=== PATIENT | female | born 1990 | race Caucasian/White ===

== ENCOUNTER 2024-06-02 09:01 | Inpatient (IN) ==
[2024-06-02] MEDS ORDERED: CALCIUM CARBONATE 500 MG CHEWABLE TAB PO PRN ×2 (09:43→18:41)
[2024-06-02] MEDS ORDERED: ACETAMINOPHEN 325 MG TAB PO PRN (09:43)
--- NOTE | 2024-06-02 10:13 | History & Physical Report ---
Date of Service June 02, 2024 Assessment & Plan (1) Uterine contractions at greater than 20 weeks of gestation: Plan: patient is a 33-year-old at 13 weeks and 1 day gestation who presented today with small amount of leaking since May 31 morning on 3 different episodes, nothing in between.And uterine contractions since this morning 2:30 AM, Vital signs stable afebrile, heart rate reassuring, Cervix is unfavorable, Initial exam with AmniSure revealed blood type and positive test, speculum exam with no pooling, nitrazine negative, no ferning on the slides, Normal NELSON, Unequivocal test as above, Plan to monitor, P.o. hydration, ambulate, and then rest in bed in Trendelenburg position and repeat speculum exam, All questions were answered. (2) Vaginal discharge during in third trimester: History of Present Illness Primary Care Provider: Glen Swenson Patient is a 33-year-old G1, P0 at 38 weeks and 1 day gestation who felt a sma ll amount of leakage of fluid on WednesdayMay 31 and morning. Nothing in between those episodes. This morning she woke up again the sensation of leakage around 2:30 AM when her contractions started. She has been feeling them every 5 minutes as above them are painful and some of them are not. Patient denies Trickling, gush of fluids. She reports good movements. the has been uncomplicated except GDM 1, diet controlled, history of asthma, GBS negative. Allergies Allergy/AdvReac Type Severity Reaction Status Date / Time No Known Allergies Allergy Unverified 06/02/24 09:45 Home Medications Medication Instructions Recorded Confirmed Type vits no.124-ferrous fum 1 tab 06/02/24 History 27 mg iron-folic acid 800 mcg tablet ( Vitamin) Patient History Medical History (Updated 06/02/24 @ 10:11 by Jess Rae MD) GERD (gastroesophageal reflux disease) Gestational diabetes Anxiety Asthma Surgical History (Updated 06/02/24 @ 09:45 by Letty Jesus RN) History of tonsillectomy Review of Systems as per Subjective / HPI Physical Exam Constitutional: WD/WN, vitals as above Genitourinary: normal external appearance Speculum/Bimanual Exam: normal appearance of the vagina ( no pooling) and + abnormal cervical discharge ( mucousy thick discharge) OB Exam Abdomen: + vertex Manual OB Exam: + cervical dilation fingertip, + cervical effacement 20% and + station high bedside ultrasound revealed vertex, single IUP, NELSON is 12 cm, placenta anterior, On initial exam AmniSure was done Q-tip was bloody, it turned positive, Speculum exam was done, no pooling, nitrazine negative, no ferning on the slide. Results & Data Vital Signs (Past 12 Hours) Vital Signs Pulse BP 06/02/24 09:39 90 118/71
[2024-06-02] MEDS: LACTATED RINGER'S 1,000 ML IV ONE (13:17)
--- NOTE | 2024-06-02 13:28 | Obstetrical Progress Note ---
Date of Service June 02, 2024 Subjective Patient is reevaluated. She walks in the hallways for for over an hour and then came back to bed and has been laying flat for over an another hour. She has not felt any leakage. She is still having contractions and they are less often but more painful. she rates the pain 8 out of 10 but declines pain medications for now. Her pad has been dry. Speculum exam is repeated, abundant mucus and upper vagina covering cervix, she coughed no pooling or leaking, it was collected, nitrazine is negative, no ferning on the slide. Her cervix is the same tight 1 cm, 30% effaced, -3, bulging bag felt. heart rate has been category 1, Urie showed contractions every 5 test 8 minutes, Discussed the findings most likely prolonged latent phase of labor offered her IV hydration and pain medication to rest and sleep and then reevaluate in 2 hours, Patient agrees with the plan, All questions were answered. Results & Data Vital Signs (Past 12 Hours) Vital Signs Temp Pulse Resp BP 06/02/24 11:12 86 06/02/24 11:12 114/60 06/02/24 09:48 36.7 C 20 06/02/24 09:39 90 118/71
[2024-06-02] MEDS: BUTORPHANOL TARTRATE 1 MG/ML VIAL IV ONE (13:50)
[2024-06-02] MEDS: LACTATED RINGER'S 1,000 ML IV SCH (14:19)
--- OUTSIDE RECORDS SUMMARY | 2024-06-02 16:58 | External Medical Summary | Summary of Care ---
Author Name Unknown Organization [facility] Address [address] [place] [address] Phone [phone] Care Team Providers Care Boom Boss Name Role Phone Glen Swenson MD Primary Care Provider Reason for Visit * Reason Comments Return Visit Encounter Details Date Type Department Care Team (Late st Contact Info) Description 05/29/2024 8:00 AM EDT Office Visit Gynecology/Obstetric s [facility] [address] [place] [phone] Shakila Thurston CRNP [address] [place] [phone] Supervision of high risk in third trimester*; Anxiety during ; Maternal asthma complicating ; Diet controlled gestational diabetes mellitus (GDM) in third trimester Allergies No known active allergiesdocumented as of this encounter (statuses as of 05/29/2024) Medications Complete Oral Capsule Therapy Pack Take by mouth. Activ e Breast PumpIndications: Breast feeding status of mother RAJWINDER 06/15/24, double electric pump, Z39.1 1 Each 4 Active Additional Information Patient not taking.Reported on 04/04/2024 OneTouch Delica Lancets 30GIndications:G estational diabetes mellitus (GDM) in third trimester, gestational diabetes method of control unspecified Check blood sugar 4 times a day 100 Each 6 5 Active OneTouch Verio w/Device KitIndications:G estational diabetes mellitus (GDM) in third trimester, gestational diabetes method of control unspecified Use as directed. Check blood sugar 4 times a day 1 Kit Active [employer] In Vitro Strip (Glucose Blood)Indication s:Gestational diabetes mellitus (GDM) in third trimester, gestational diabetes method of control unspecified Check blood sugar 4 times a day 100 Strip 6 Active documented as of this encounter (statuses as of 05/29/2024) Active Problems Problem Noted Date Diagnosed Date Supervision of high risk in third trim gary 04/04/2024 Diet controlled gestational diabetes mellitus (GDM) in third trimester 03/24/2024 Overview (05/24/2024): Diagnosed at 29 weeks Nutrition consult completed 03/31/2024 Lab Results Component Value Date/Time 50-G GESTATIONAL GLUCOSE, 1 HOUR - [facility] 180 (H) 03/21/2024 08:21 AM 100-G GESTATIONAL GLUCOSE, 1 HOUR - [facility] 157 03/23/2024 08:55 AM 100-G GESTATIONAL GLUCOSE, 2 HOUR - [facility] 184 (H) 03/23/2024 09:48 AM 100-G GESTATIONAL GLUCOSE, 3 HOUR - [facility] 156 (H) 03/23/2024 10:44 AM 100-G GESTATIONAL GLUCOSE, FASTING - [facility] 89 03/23/2024 07:41 AM 04/04/24: MFM [facility] consult complete. Referred to Current Health. Instructions provided to report blood sugars each week for MFM review; Reviewed diet & exercise recommendations, bedtime snack and fasting overnight for no longer than 8-10 hours. 04/12/[id number]-olpcih 04/18/24: RPM reviewed; overall stable; diet controlled 04/26/24: RPM reviewed; overall stable, diet controlled 05/03/[id number]-wrjzyd 05/10/[id number]-JDI-utfxof. 05/17/20240419-HYF-ulomlzt stable (< 50% elevated) 05/24/[id number]-UYC-oyzbxbi stable (2 elevated post prandial lunch values) Assessment & Plan (04/14/2024 8:31 AM EST): I reviewed the ultrasound with her. The anatomy that was visualized appears unremarkable and the biometry is appropriate the gestational age. The amniotic fluid volume is normal at 13 cm. The overall estimated weight is consistent with the 60th percentile for the gestational age and the fetus is in the vertex presentation. I reviewed her low risk noninvasive screen in light of the normal ultrasound findings. She states that her blood sugars are well controlled by diet alone. We did review the plan of care if she were to be placed on medication. She understands the need for nonstress testing at 32 weeks of gestation and ultrasound evaluations for growth every 4 weeks. As her blood sugars are controlled by diet alone, there currently is no indication for return. Assessment & Plan (04/04/2024 1:58 PM EST): CONSIDERATIONS: Reviewed etiology and risks associated with gestational diabetes mellitus (GDM), including risks to , fetus, and maternal progression to Type 2 DM. Instructed on proper use of glucometer; supplies ordered, if indicated. Advised that life-long screening for diabetes is recommended every 1-3 years. RECOMMENDATIONS: Recommend monitoring blood sugars with daily fasting blood sugar (maintained at less than 95) and 1 hour postprandial measurements (maintained at less than 140). Medications should be adjusted to maintain these target values. Report levels to MFM (Maternal- Medicine) weekly. Recommend nutrition consult with RDN (Registered Dietitian Nursing Admin). Lifestyle changes are also indicated including optimizing gestational weight gain and physical activity of 30 minutes per day, if not otherwise contraindicated in . Insulin is preferred if medications are indicated to optimize euglycemia. Metformin (preferred over glyburide) may also be used in some circumstances. Reviewed the risks and benefits of each. Recommend ultrasound, surveillance and delivery as follows: A1GDM, delivery should be accomplished by 41w0d. A2GDM, recommend growth assessment with MFM every 4 weeks, initiate surveillance with twice weekly NSTs at 32 weeks and continue until delivery at 39 weeks. Recommend intrapartum monitoring every 1-2 hours (A2GDM) or every 4 hours (A1GDM) and treat with insulin if indicated. Recommend 2-hour glucose tolerance testing with 75-gram glucose load during admission (or 6-8 weeks if not completed). Anxiety during 01/21/2024 Maternal asthma complicating Estimated Date of Delivery Comme nts Yes 06/15/2024 Based on Ultraso und documented as of this encounter (statuses as of 05/29/2024) Resolved Problems Problem Noted Date Diagnosed Date Resolved Date with 29 completed weeks gestation 04/04/2024 04/07/2024 Depressive disorder 03/09/2016 07/22/19 24 documented as of this encounter (statuses as of 05/29/2024) Immunizations Name Administration Dates Next Due COVID-19 mRNA, LNP-s, No Pre serve, 2-Dose Series (Pfizer) 06/24/2020,06/03/2020 Covid-19, Mrna, Lnp-s, Pf, B ivalent, 10 Mcg, IM, 5-11 yrs (Pfizer) 12/29/2022,2021 Covid-19, Mrna, Lnp-s, Pf, B ivalent, 30 Mcg, IM, 12 yrs and above (Pfizer) 03/08/2021 HEPATITIS B VACCINE, RECOMB, 20 MCG/ML, ADULT (HEPLISAV-B) 07/22/2023 HPV Vaccine, 9-Valent 03/30/2019,06/02/2018 Seasonal Influenza, QUAD, wi th Preserv, 6 mons & Above, 0.5 mL, IM 03/08/2021,11/30/2016 Seasonal Influenza, Trivalent, (IIV3), PF, (Fluz one) 12/20/2023 TDAP (age 10 and older)(Boostrix) 05/28/2022,03/2007 TDAP, Age 7 and older, IM (Adacel) 03/21/2024 documented as of this encounter Social History Tobacco Use Types Packs/Day Years Used Date Smoking Tobacco: Never Passive Smoke Exposure: Never Smokeless Tobacco: Never Alcohol Use Standard Drinks/Week Comments Not Currently 1 (1 standard drink = 0.6 oz pur e alcohol) PHQ-2 Answer Date Recorded PHQ Adult Total Score 4 12/27/2023 Hunger Vital Sign Answer Date Recorded Within the past 12 months, y ou worried that your food would run out before you got the money to buy more. Never true 07/22/19 24 Within the past 12 months, t he food you bought just didn't last and you didn't have money to get more. Never true 07/22/2023 [place] Depression Scale Answer Date Recorded [place] Depression Scale Total 8 05/08/2024 The thought of harming myself has occurred to me . Never 05/08/2024 Childcare Answer Date Recorded Do you feel overwhelmed with taking care of a child, family member or friend? No 07/22/2023 Does your family need help f inding childcare? (Household - for ages 0-17 years) Not on file 07/22/2023 Clothing Answer Date Recorded Have you been unable to get clothing when it was really needed? No 07/22/2023 Is your family able to get c lothes or diapers when needed? (Household - for ages 0-17 years) Not on file 07/22/2023 Personal Safety Answer Date Recorded Do you feel unsafe or have concerns for your saf ety? No 07/22/2023 Do you have concerns for you r family's safety? (Household - for ages 0-17 years) Not on file 07/22/2023 Utilities Answer Date Recorded Do you have trouble paying y our heating, water, or electric bill? No 07/22/2023 Is your family able to pay t he heat, water, or electric bill? (Household - for ages 0-17 years) Not on file 07/22/2023 Does your family have access to good internet? (Household - for ages 0-17 years) Not on file 07/22/2023 Employment Status Answer Date Recorded Are you unemployed or without regular income? No 07/22/2023 Does the household have a re gular source of income? (Household - for ages 0-17 years) Not on file 07/22/2023 Social Connections Answer Date Recorded How often do you feel lonely or isolated from th ose around you? Never 07/22/2023 Financial Resource Strain Answer Date R ecorded Do you have any trouble payi ng for your medications, or do you think you might in the future? No 07/22/2023 Does your family have troubl e paying for medicine? (Household - for ages 0-17 years) Not on file 07/22/2023 Transportation Needs Answer Date Record ed READ ONLY Do you have troubl e getting a ride to medical visits or work? Never True 07/22/2023 Does your family have a hard time getting a ride to doctors visits? (Household - for ages 0-17 years) Not on file 07/22/2023 Has lack of transportation k ept you from medical appointments, meetings, work, or from getting things needed for daily living? Check all that apply. (Adult - for ages 18 years and over) Not on file 07/22/2023 Do you (or your family) have trouble finding or paying for a ride (transportation)? (Household - for ages 0-17 years) Not on file 07/22/2023 Housing Stability Answer Date Recorded Do you currently live in a s helter or have no steady place to sleep at night? No 07/22/2023 READ ONLY Do you think you a re at risk of becoming homeless? No 07/22/2023 Does your family worry about paying for your home or becoming homeless? (Household - for ages 0-17 years) Not on file 0 07/22/2023 Are you homeless or worried that you might be in the future? (Adult - for ages 18 years and over) Not on file Are you (or your family) fernanda eless or worried that you might be in the future? (Household - for ages 0-17 years) Not on file Food Insecurity Answer Date Recorded Do you need food for this week? No 07/22/2023 Are you able to get enough f ood for your family? (Household - for ages 0-17 years) Not on file 07/22/2023 Does your family need food t his week? (Household - for ages 0-17 years) Not on file 07/22/2023 Do you always have enough fo od for your family? (Household - for ages 0-17 years) Not on file 07/22/2023 Food Insecurity Answer Date Recorded Within the past 12 months, y ou worried that your food would run out before you got the money to buy more. Never true 07/22/19 24 Within the past 12 months, t he food you bought just didn't last and you didn't have money to get more. Never true 07/22/2023 Do you need food for this week? No 07/22/2023 Estimated Date of Delivery Comme nts Yes 06/15/2024 Based on Ultraso und Sex and Gender Information Value Date Recorded Sex Assigned at Female 07/22/2023 7:19 AM EDT Legal Sex Female 10:21 AM EDT Gender Identity Female 07/22/2023 7:19 AM EDT Sexual Orientation Straight 07/22/2023 7: 19 AM EDT documented as of this encounter Last Filed Vital Signs Vital Sign Reading Time Taken Comments Blood Pressure 118/70 05/29/2024 8:09 AM EDT Pulse - - Temperature - - Respiratory Rate - - Oxygen Saturation - - Inhaled Oxygen Concentration - - Weight 63 kg (139 lb) 05/29/2024 8:09 AM EDT Height 155.5 cm (5' 1.22") 05/29/2024 8:09 AM ED T Body Mass Index 26.08 05/29/2024 8:09 AM EDT documented in this encounter Progress Notes * Shakila Thurston CRNP - 05/29/2024 8:10 AM EDT 37w4d No complaints. Reports blood sugars are mostly good- struggles with the reading after her once a week meal at her in-laws house. She reports the majority of the rest of the blood sugar readings are within range. Baby is active. Denies contractions or bleeding. Politely declined scheduling IOL. LIANNE Rivera documented in this encounter Nursing Notes * Yany Duncan LPN - 05/29/2024 8:02 AM EDT 37w4d Declines IOL documented in this encounter Plan of Treatment Upcoming Encounters Date Type Department Care Team (Late st Contact Info) Description 06/05/2024 8:30 AM EDT Office Visit Gynecology/Obstetrics [facility] [address] [place] [id number] Maggie Monique CRNP [address] [place] [address] 06/12/2024 9:30 AM EDT Office Visit Gynecology/Obstetrics [facility] [address] [place] [address] Melina Patel PA-C [address] [place] [id number] Health Maintenance Due Date Last Done Comments Pneumococcal Vaccine: Pediatrics (0 to 5 Years) and At-Risk Patients (6 to 18 Years and 19+ Years) (1 of 2 - PCV) 2008 Lipid Panel 2009 HPV (Gardasil) Vaccine (3 - 3-dose SCDM series) 06/22/2019 03/30/2019, 06/02/2018 Hepatitis B Vaccine (2 of 2 - CpG 2-dose series) 08/19/2023 07/22/2023 *SPIROMETRY ONCE FOR ASTHMA-ADULT 01/24/2024 Depression Screening 12/26/2024 12/27/2023, 12/13/2023, 11/26/2023, Additional history exists Pap Smear 11/17/2026 11/18/2023 Cervical Cancer Screening 11/17/2028 HPV/Co-Test 11/17/2028 11/18/2023 DTap/Tdap Vaccines (4 - Td or Tdap) 03/21/2034 03/21/2024, 05/28/2022, 03/01/2007 COVID-19 Vaccine Discontinued 12/29/2022, , 03/08/2021, Additional history exists Influenza Vaccine (FLU shot) Completed 12/20/2023, 03/08/2021, 11/30/2016 MENINGOCOCCAL (MENACTRA/MENVEO) Aged Out No longer eligible based on patient's age to complete this topic Meningitis B Vaccine (Bexsero/Trumemba) Aged Out No longer eligible based on patient's age to complete this topic documented as of this encounter Goals Goal Patient Goal Type Associated Problems Recent Progress Patient-Stated? Author Reminders Care Plan OB Reminders No Mychart, Provider documented as of this encounter Medical Devices Not on filedocumented as of this encounter Visit Diagnoses Diagnosis Diet controlled gestational diabetes mellitus (GDM) in third trimester- Primary Supervision of high risk in third trimester Unspecified high-risk with 29 completed weeks gestation Diet controlled gestational diabetes mellitus (GDM) in third trimester- Primary Supervision of high risk in third trimester- Primary Unspecified high-risk Anxiety during Maternal asthma complicating Other current maternal conditions classifiable elsewhere, complicating , childbirth, or the puerperium, unspecified as to episode of care Diet controlled gestational diabetes mellitus (GDM) in third trimester documented in this encounter Additional Health Concerns Active Problems Noted Date Diagnosed Date OB Reminders 03/12/2024 documented as of this encounter Care Teams Boom Boss Relationship Specialty Start Date End Date Glen Swenson MD [address] [place] [phone] PCP - General Family Medicine 04/11/24 documented as of this encounter
--- OUTSIDE RECORDS SUMMARY | 2024-06-02 16:58 | External Medical Summary | Summary of Care ---
Author Name Unknown Organization [facility] Address [address] [place] [address] Phone [phone] Care Team Providers Care Team Truck Driver Name Role Phone Glen Swenson MD Primary Care Provider Reason for Visit * Reason Comments Return Visit Encounter Details Date Type Department Care Team (Late st Contact Info) Description 05/22/2024 8:30 AM EDT Office Visit Gynecology/Obstetric s [facility] [address] [place] [phone] Maggie Monique CRNP [address] [place] [phone] Supervision of high risk in third trimester*; Anxiety during ; Maternal asthma complicating ; Diet controlled gestational diabetes mellitus (GDM) in third trimester Allergies No known active allergiesdocumented as of this encounter (statuses as of 05/22/2024) Medications Complete Oral Capsule Therapy Pack Take [...] 4 times a day 1 Kit Active [employer] In Vitro Strip (Glucose Blood)Indication s:Gestational diabetes mellitus (GDM) in third trimester, gestational diabetes method of control unspecified Check blood sugar 4 times a day 100 Strip 6 Active documented as of this encounter (statuses as of 05/22/2024) Active Problems Problem Noted Date Diagnosed Date Supervision of high risk in third trim gary 04/04/2024 Diet controlled gestational diabetes mellitus (GDM) in third trimester 03/24/2024 Overview (05/17/2024): Diagnosed at 29 weeks Nutrition consult completed [...] overnight for no longer than 8-10 hours. 04/12/[id number]-[id number]-ryuooh 04/18/24: RPM reviewed; overall stable; diet controlled 04/26/24: RPM reviewed; overall stable, diet controlled 05/03/[id number]-DOJ-ezgoka 05/10/[id number]-ELU-nyqgpa. 05/17/20243724-VLY-duanszf stable (< 50% elevated) Assessment & Plan (04/14/2024 8:31 AM EST): [...] Recommend nutrition consult with RDN (Registered Dietitian Personal Counselor). Lifestyle changes are also indicated including optimizing [...] as of this encounter (statuses as of 05/22/2024) Resolved Problems Problem Noted Date Diagnosed Date Resolved Date with 29 completed weeks gestation 04/04/2024 04/07/2024 Depressive disorder 03/09/2016 07/22/19 24 documented as of this encounter (statuses as of 05/22/2024) Immunizations Name Administration Dates Next Due COVID-19 [...] money to get more. Never true 07/22/2023 [place] Depression Scale Answer Date Recorded [place] Depression Scale Total 8 05/08/2024 The thought [...] 07/22/2023 Does the household have a re lar source of income? (Household - for ages [...] Sign Reading Time Taken Comments Blood Pressure 120/68 05/22/2024 8:26 AM EDT Pulse - - Temperature - - Respiratory Rate - - Oxygen Saturation - - Inhaled Oxygen Concentration - - Weight 62.6 kg (138 lb) 05/22/2024 8:26 AM EDT Height 155.5 cm (5' 1.22") 05/22/2024 8:26 AM ED T Body Mass Index 25.89 05/22/2024 8:26 AM EDT documented in this encounter Progress Notes * Maggie Monique CRNP - 05/22/2024 8:27 AM EDT 36w4d GDMA 1, followed by [facility]T. Good movement. No leaking/bleeding. Some ctx, nothing regular. Discussed calling with concerns for LOF, decreased FM, or labor. Pt wishes to self-collect GBS, instructions provided. Return in 1 week. LIANNE Ibrahim * Yany Duncan LPN - 05/22/2024 8:26 AM EDT 36w4d Would like to do GBS herself documented in this encounter Plan of Treatment Upcoming Encounters Date Type Department Care Team (Late st Contact Info) Description 05/29/2024 8:00 AM EDT Office Visit Gynecology/Obstetrics [facility] [address] [address] Shakila Thurston CRNP [address] [address] 06/05/2024 8:30 AM EDT Office Visit Gynecology/Obstetrics [facility] [address] [address] Maggie Monique CRNP [address] [place] [phone] 06/12/2024 9:30 AM EDT Office Visit Gynecology/Obstetrics [facility] [address] [place] [address] Melina Patel PA-C [address] [place] [address] Pending Results Name Type Priority Associated Diagnoses Date /Time GROUP B STREP CULTURE/PCR Lab Routine Supervision of high risk in third trimester 05/22/2024 8:52 AM EDT Scheduled Orders Name Type Priority Associated Diagnoses Orde r Schedule GROUP B STREP CULTURE/PCR Lab Routine Supervision of high risk in third trimester Expected: 05/22/2024, Expires: 05/22/2025 Health Maintenance Due Date Last Done Comments [...] documented as of this encounter Care Teams Team Truck Driver Relationship Specialty Start Date End Date Glen Swenson MD [address] [facility] [place] [phone] PCP - General Family Medicine 04/11/24 documented as of this encounter
--- OUTSIDE RECORDS SUMMARY | 2024-06-02 16:58 | External Medical Summary | Summary of Care ---
Author Name Unknown Organization [facility] Address [address] [place] [address] Phone [phone] Care Team Providers Care Electronic Data Interchange Specialist Name Role Phone Glen Swenson MD Primary Care Provider Encounter Details Date Type Department Care Team (Late st Contact Info) Description 06/02/2024 Telephone Gynecology/Obstetrics [facility] [address] [place] [address] Jess Cabrera MD [address] [place] [address] Allergies No known active allergiesdocumented as of this encounter (statuses as of 06/02/2024) Medications Complete Oral Capsule Therapy Pack Take [...] sugar 4 times a day 1 Kit 5 Active OneTouch Verio In Vitro Strip (Glucose Blood)Indication s:Gestational diabetes mellitus (GDM) in third trimester, gestational diabetes method of control unspecified Check blood sugar 4 times a day 100 Strip 6 Active documented as of this encounter (statuses as of 06/02/2024) Active Problems Problem Noted Date Diagnosed Date Supervision of high risk in third trim gary 04/04/2024 Diet controlled gestational diabetes mellitus (GDM) in third trimester 03/24/2024 Overview (05/31/2024): Diagnosed at 29 weeks Nutrition consult completed [...] overnight for no longer than 8-10 hours. 04/12/[id number]-SYU-uustzl 04/18/24: RPM reviewed; overall stable; diet controlled 04/26/24: RPM reviewed; overall stable, diet controlled 05/03/20240961-NRP-cahvvk 05/10/20242867-WUZ-ydrbfu. 05/17/[id number]-SXZ-tlxcaqq stable (< 50% elevated) 05/24/20242387-GFS-wpzjzzc stable (2 elevated post prandial lunch values) 05/31/20247528-DFM-oxiifj (1 elevated post prandial dinner) Assessment & Plan (04/14/2024 8:31 AM EST): [...] Recommend nutrition consult with RDN (Registered Dietitian Ride Attendant). Lifestyle changes are also indicated including optimizing [...] as of this encounter (statuses as of 06/02/2024) Resolved Problems Problem Noted Date Diagnosed Date Resolved Date with 29 completed weeks gestation 04/04/2024 04/07/2024 Depressive disorder 03/09/2016 07/22/19 24 documented as of this encounter (statuses as of 06/02/2024) Immunizations Name Administration Dates Next Due COVID-19 mRNA, LNP-s, No Pre serve, 2-Dose Series ([employer]) 06/24/2020,06/03/2020 Covid-19, Mrna, Lnp-s, Pf, B ivalent, [...] money to get more. Never true 07/22/2023 [place] Depression Scale Answer Date Recorded [place] Depression Scale Total 8 05/08/2024 The thought [...] AM EDT documented as of this encounter Miscellaneous Notes * Telephone Encounter - Yany Dunacn LPN - 06/02/2024 8:19 AM EDT I spoke with Dr. De La Cruz and she would like for pt to go to L&D. Pt aware and L&D aware * Telephone Encounter - Yany Duncan LPN - 06/02/2024 8:12 AM EDT Pt called in think she may have been LOF for the past 2 days not having leaking all the time just when she sitsup from laying down she notices her underwear wet. Pt denies any vb. Baby is moving well. Pt is saying she is having contractions that are 5 mins aprt lasting 45secs-1min. I let pt know I need to reach out to dr de la cruz and I will call her right back. Pt verbalized understanding documented in this encounter Plan of Treatment Upcoming Encounters Date Type Department Care Team (Late st Contact Info) Description 06/05/2024 8:30 AM EDT Office Visit Gynecology/Obstetrics [facility] [address] [address] Maggie Monique CRNP [address] [place] [address] 06/12/2024 9:30 AM EDT Office Visit Gynecology/Obstetrics [facility] [address] [address] Melina Patel PA-C [address] [place] [address] Health Maintenance Due Date Last Done Comments [...] Author Reminders Care Plan OB Reminders No [place], Provider documented as of this encounter Medical Devices Not on filedocumented as of this encounter Additional Health Concerns Active Problems Noted Date Diagnosed Date OB Reminders 03/12/2024 documented as of this encounter Care Teams Electronic Data Interchange Specialist Relationship Specialty Start Date End Date Glen Swenson MD [address] [address] PCP - General Family Medicine 04/11/24 documented as of this encounter
--- OUTSIDE RECORDS SUMMARY | 2024-06-02 16:58 | External Medical Summary ---
Author Name Unknown Address Unknown Organization K01:[facility] [place] [facility] [address] [place] [address] Laboratory Report Ordering Provider Test Date Status GAIL DE LA GARZA 05/22/2024 08:52:51 Final Observation Date Value Abnormality Reference (Units ) Status Streptococcus agalactiae DNA [Presence] in Specimen by LUIS with probe detection 05/22/2024 08:52:51 Negative Negative Final No Group B Streptococcus det ected by culture-enhanced PCR (amplified probe). GBS GBSCT - [facility] 05/22/2024 08:52:51 0.0 Final GBS SPCCT - [facility] 05/22/2024 08:52:51 30.4 Final Performing Location [facility] [place] [address] [place] [address]
--- OUTSIDE RECORDS SUMMARY | 2024-06-02 16:58 | External Medical Summary | Summary of Care ---
Author Name Unknown Organization [facility] Address [address] [place] [address] Phone [phone] Care Team Providers Care Registered Dietician Name Role Phone Glen Swensno MD Primary Care Provider Reason for Visit * Reason Onset Date Comments Appointment 05/24/2024 Encounter Details Date Type Department Care Team (Late st Contact Info) Description 05/24/2024 Telephone Psychology [facility] [address] [place] [address] Lizbeth Dean, [facility] [address] [place] [address] Appointment Allergies No known active allergiesdocumented as of this encounter (statuses as of 05/24/2024) Medications Complete Oral Capsule Therapy Pack Take [...] as of this encounter (statuses as of 05/24/2024) Active Problems Problem Noted Date Diagnosed Date [...] overnight for no longer than 8-10 hours. 04/12/20240666-JXL-pbgfcj 04/18/24: RPM reviewed; overall stable; diet controlled 04/26/24: RPM reviewed; overall stable, diet controlled 05/03/20245454-ZOY-nttcms 05/10/[id number]-ATI-zsozzo. 05/17/20243369-VBD-wfquueu stable (< 50% elevated) 05/24/20247362-VOO-glkossq stable (2 elevated post prandial lunch values) [...] Recommend nutrition consult with RDN (Registered Dietitian Internal Audit Manager). Lifestyle changes are also indicated including optimizing [...] completed). Anxiety during 01/21/2024 Maternal asthma complicating 4 Estimated Date of Delivery Comme nts Yes 06/15/2024 Based on Ultraso und documented as of this encounter (statuses as of 05/24/2024) Resolved Problems Problem Noted Date Diagnosed Date Resolved Date with 29 completed weeks gestation 04/04/2024 04/07/2024 Depressive disorder 03/09/2016 07/22/19 24 documented as of this encounter (statuses as of 05/24/2024) Immunizations Name Administration Dates Next Due COVID-19 mRNA, LNP-s, No Pre serve, 2-Dose Series ([employer]) 06/24/2020,06/03/2020 Covid-19, Mrna, Lnp-s, Pf, B ivalent, [...] money to get more. Never true 07/22/2023 [place] Depression Scale Answer Date Recorded [place] Depression Scale Total 8 05/08/2024 The thought [...] No 07/22/2023 Does the household have a [facility] income? (Household - for ages [...] encounter Miscellaneous Notes * Telephone Encounter - Светлана Boyce OSA - 05/24/2024 1:40 PM EDT Spoke with patient about transitioning ot new provider and patient declined wants something fpc. documented in this encounter Plan of Treatment Upcoming Encounters Date Type Department Care Team (Late st Contact Info) Description 05/29/2024 8:00 AM EDT Office Visit Gynecology/Obstetrics [facility] [address] [address] Shakila Thurston CRNP [address] [place] [address] 06/05/2024 8:30 AM EDT Office Visit Gynecology/Obstetrics [facility] [address] [place] [address] Maggie Monique CRNP [address] [place] [address] 06/12/2024 9:30 AM EDT Office Visit Gynecology/Obstetrics [facility] [address] [address] Melina Patel PA-C [address] [place] [address] Health Maintenance Due Date Last Done Comments [...] documented as of this encounter Care Teams Registered Dietician Relationship Specialty Start Date End Date Glen Swenson MD [address] [facility] [address] [place] [address] PCP - General Family Medicine 04/11/24 documented as of this encounter
--- OUTSIDE RECORDS SUMMARY | 2024-06-02 16:58 | External Medical Summary | Summary of Care ---
Author Name Unknown Organization [facility] Address [address] [place] [address] Phone [phone] Care Team Providers Care Hunter Name Role Phone Glen Swenson MD Primary Care Provider Reason for Visit * Reason Comments Return Visit Encounter Details Date Type Department Care Team (Late st Contact Info) Description 05/22/2024 8:30 AM EDT Office Visit Gynecology/Obstetric s [facility] [address] [place] [address] Maggie Monique CRNP [address] [place] [address] Supervision of high risk in third trimester*; [...] 4 times a day 1 Kit Active [employer] In Vitro Strip (Glucose Blood)Indication s:Gestational diabetes [...] overnight for no longer than 8-10 hours. 04/12/20240223-TBN-fmlfsy 04/18/24: RPM reviewed; overall stable; diet controlled 04/26/24: RPM reviewed; overall stable, diet controlled 05/03/20243240-YTS-cflaje 05/10/20243830-ROJ-dfvomr. 05/17/20246885-IWF-dbfvzpk stable (< 50% elevated) Assessment & Plan [...] Recommend nutrition consult with RDN (Registered Dietitian Bar Hostess). Lifestyle changes are also indicated including optimizing [...] money to get more. Never true 07/22/2023 [place] Depression Scale Answer Date Recorded [place] Depression Scale Total 8 05/08/2024 The thought [...] Visit Gynecology/Obstetrics [facility] [address] [address] Shakila Thurston CRNP [address] [address] 06/05/2024 8:30 AM EDT Office Visit Gynecology/Obstetrics [facility] [address] [address] Maggie Monique CRNP [address] [place] [address] 06/12/2024 9:30 AM EDT Office Visit Gynecology/Obstetrics [facility] [address] [place] [address] Melina Patel PA-C [address] [place] [address] Pending Results Name Type Priority Associated Diagnoses [...] documented as of this encounter Care Teams Hunter Relationship Specialty Start Date End Date Glen Swenson MD [address] [facility] [place] [address] PCP - General Family Medicine 04/11/24 documented as of this encounter
--- OUTSIDE RECORDS SUMMARY | 2024-06-02 16:59 | External Medical Summary | Summary of Care ---
Author Name Unknown Organization [facility] Address [address] [place] [address] Phone [phone] Care Team Providers Care Medication Technician Name Role Phone Glen Swenson MD Primary Care Provider Reason for Referral * Precert (Within 10 days (routine)) - Pending Review Specialty Diagnoses / Procedures Referred By Dwayne jones Referred To Contact Sleep Disorders Diagnoses Loud snoring Sleep apnea, unspecified type Frequent nocturnal awakening Procedures TIMED SLEEP STUDY, UNATTEND, HR/O2 SAT/RESP Katrina Gold CRNP [address] [place] [address] Phone: tel: fax: Referral ID Status Reason Start Date Expiration Date V isits Requested Visits Authorized [id number] Pending Review 04/11/2024 999 999 Reason for Visit * Evaluate & Treat - Unlimited Visits (Within 10 days (routine)) - Pending Review Specialty Diagnoses / Procedures Referred By Dwayne jones Referred To Contact Sleep Medicine / Sleep Disorders Diagnoses Sleep apnea, unspecified type Snoring Restless sleeper Kayden, LIANNE Guzmán [address] [place] [address] Phone: tel: fax: Referral ID Status Reason Start Date Expiration Date Visits Requested Visits Authorized [id number] Pending Review Specialty Services Required 04/11/2024 2 2 Encounter Details Date Type Department Care Team (Late st Contact Info) Description 04/11/2024 11:00 AM EST Telemedicine Sleep Disorders [facility] [address] [place] [phone] Katrina Gold CRNP [address] [place] [address] Loud snoring*; Sleep apnea, unspecified type; Frequent nocturnal awakening Allergies No known active allergiesdocumented as of this encounter (statuses as of 04/11/2024) Medications Complete Oral Capsule Therapy Pack Take by mouth. Activ e Breast PumpIndications: Breast feeding status of mother RAJWINDER 06/15/24, double electric pump, Z39.1 1 Each 4 Active Additional Information Patient not taking.Reported on 04/04/2024 [employer] Delica Lancets 30GIndications:G estational diabetes mellitus (GDM) in third trimester, gestational diabetes method of control unspecified Check blood sugar 4 times a day 100 Each 6 5 Active InnoPh[employer]uch Verio w/Device KitIndications:G estational diabetes mellitus (GDM) in third trimester, gestational diabetes method of control unspecified Use as directed. Check blood sugar 4 times a day 1 Kit 5 Active [employer] In Vitro Strip (Glucose Blood)Indication s:Gestational diabetes mellitus (GDM) in third trimester, gestational diabetes method of control unspecified Check blood sugar 4 times a day 100 Strip 6 5 Active documented as of this encounter (statuses as of 04/11/2024) Active Problems Problem Noted Date Diagnosed Date Supervision of high risk in third trim gary 04/04/2024 Diet controlled gestational diabetes mellitus (GDM) in third trimester 03/24/2024 Overview (04/04/2024): Diagnosed at 29 weeks Nutrition consult completed [...] FASTING - [facility] 89 03/23/2024 07:41 AM She reports her home blood glucose as following: DATE Fasting 1 hr after Breakfast 1 hr after Lunch 1 hr after Dinner 03/30/24 x 131 105 102 03/31/24 83 98 132 x 04/01/24 88 113 106 112 04/02/24 88 110 121 106 04/03/24 90 128 140 130 04/04/24 91 x 04/04/24: MFM ADAPT consult complete. Referred to Current Health. Instructions provided to report blood sugars each week for MFM review; Reviewed diet & exercise recommendations, bedtime snack and fasting overnight for no longer than 8-10 hours. Assessment & Plan (04/04/2024 1:58 PM EST): [...] Recommend nutrition consult with RDN (Registered Dietitian Knocker Out). Lifestyle changes are also indicated including optimizing [...] as of this encounter (statuses as of 04/11/2024) Resolved Problems Problem Noted Date Diagnosed Date Resolved Date with 29 completed weeks gestation 04/04/2024 04/07/2024 Depressive disorder 03/09/2016 07/22/19 24 documented as of this encounter (statuses as of 04/11/2024) Immunizations Name Administration Dates Next Due COVID-19 [...] money to get more. Never true 07/22/2023 [place] Depression Scale Answer Date Recorded [place] Depression Scale Total 10 11/18/2023 The thought of harming myself has occurred to me . Never 11/18/2023 Childcare Answer Date Recorded Do you feel [...] AM EDT documented as of this encounter Progress Notes * Katrina Gold CRNP - 04/11/2024 11:00 AM EST Patient location: HOME. I was in a hospital or clinic location. After connecting through televideo,patient was verified with two unique identifiers. Patient (or authorized legal customer operations representative) was then informed that this was a Telemedicine visit and being conducted confidentially over secure lines. Methods to assure confidentiality were taken. Patient acknowledged consent and understanding of pr ivacy and security of the Telemedicine visit. The patient agreed to participate. [facility] SLEEP MEDICINE CONSULTATION Mrs. Malou Hernandez is a 33 year old female with history of NALINI, depression, asthma seen at the request of Maggie ABDALLA for evaluation of possible sleep disordered breathing. Currently 30 weeks with reports of snoring and frequent awakenings pre . Both worsened now. Getsa tightness in the throat as she's falling asleep that wakes along with the sense of snoring. No prior sleep testing. Review of sleep symptoms ("+" indicates reports, "-" indicates denies): (+) Loud snoring with related arousals - no benefit with Breathe Rite strips in regards to snoring,using nasal saline, head of bed has been elevated which has lessened snoring (+) Witnessed apneas (-) Nocturnal choking or gasping (+) Nocturnal gastroesophageal reflux (+) Dry mouth on waking (+) Morning headaches (+) Bruxism- guard worn (+) Non-restorative sleep- noted prior to , too (+) Daytime sleepiness or fatigue- noted prior to , too (-) Symptoms of restless legs syndrome (-) Abnormal sleep behaviors including dream enactment or sleep walking Bedroom environment: Lives with . Sleeps in bed shared with . Side sleeping. Utilizing adjustable head of bed with benefit. Routine prior to bed: reading in bed Electronics: my browse on her phone, listens to crime shows when going to sleep Climate: 65 degrees, comfortable Lighting: bedside lamp when reading only Noise: none once asleep Pets: dog, cat on her side of the bed- cat being on her legs can be disruptive Sleep Schedule: Work: Programing - daylight hours Hypnotics: rare OTC without benefit Work nights: In bed 8:30p, reading prior to bed Time to fall asleep 10:30p Nighttime awakenings/ Reason 10-20 times, uncomfortable, animals, snores Wake after sleep onset brief Awake Time/Alarm Perceived total sleep time Spontaneously, around 6a, out of bed checking blood sugar 7.5 hrs Naps denies Off days: In Bed May be a little later Awake Time/Alarm same Naps rare EPWORTH SLEEPINESS SCALE: How likely are you to doze off or fall asleep in the following situations, in contrast to feeling just tired?. This refers to your usual way of life in recent times. Even if you have not done some ofthese things recently, try to work out how they would have affected you. Using the following scale,kasaan the most appropriate number in the chart for each situation. 0 = would never doze 1 = slight chance of dozing 2 = moderate chance of dozing 3 = high chance of dozing · Sitting and reading - 2 · Watching TV - 0 · Sitting, inactive in a public place - 0 · As a passenger in a car for an hour without a break - 0 · Lying down to rest in the afternoon when circumstance permit - 1 · Sitting and talking to someone - 0 · Sitting quietly after a lunch without alcohol - 0 · In a car, while stopped for a few minutes in the traffic - 0 Total - 05/22 [facility]. Sleep. 1991;[id number]. Medical History: Patient Active Problem List Diagnosis Anxiety during Maternal asthma complicating Diet controlled gestational diabetes mellitus (GDM) in third trimester Supervision of high risk in third trimester Anxiety and depression Exercise induced asthma Surgical History: Past Surgical History: Procedure Laterality Date RI TONSILLECTOMY PRIMARY/SECONDARY AGE 12 OR MORE reconcilled from [facility] Current Medications: Current Outpatient Medications Medication Sig Dispense Refill OneTouch DelTwist and Shout Lancets 30G Check blood sugar 4 times a day 100 Each 6 OneTouch Verio In Vitro Strip (Glucose Blood) Check blood sugar 4 times a day 100 Strip 6 OneTouch Verio w/Device Kit Use as directed. Check blood sugar 4 times a day 1 Kit 0 Breast Pump RAJWINDER 06/15/24, double electric pump, Z39.1 (Patient not taking: Reported on 04/04/2024) 1 Each 0 Complete Oral Capsule Therapy Pack Take by mouth. No current facility-administered medications for this visit. Social History: Caffeine: 1 cup coffee/am, occasional mini soda Alcohol use: denies Nicotine use: denies Illicit drug use: denies Routine exercise: was weight lifting, walking 15-20 minutes after meals Family History: Denies family history of sleep related disorders. Father snores loudly. Physical Exam: Wt Readings from Last 1 Encounters: 04/07/24 60.8 kg (134 lb) BMI Readings from Last 1 Encounters: 04/07/24 25.14 kg/m² Neck: unknown Constitutional: Alert, oriented in no acute distress, accompanied by self Nose: Normal external appearance. Chest: Normal respiratory effort at rest Neuro: Fluent speech Psych: Appropriate mood and affect BP Readings from Last 3 Encounters: 04/07/24 110/62 03/21/24 104/62 02/17/24 102/64 Impression/Recommendations: 33 year old female currently 30 week gestation with NALINI, depression, asthma, gestational diabetes who presents with snoring and frequent awakenings that has worsened with . At risk for TED. - Discussed the pathophysiology, implications on short- and long-term health, diagnostic evaluation, and likely treatment options of TED - Schedule a home sleep apnea test to evaluate for TED. Discussed that if the HSAT does not show TED, an in-lab PSG is recommended. - Limit sleep disrupters. Consider changing location of where pets sleep. Optimize comfort as able. - Avoid driving or engaging in any activity that requires full alertness if feeling sleepy, drowsy or otherwise impaired. Results and recommendations will be provided through [facility] once sleep testing is reviewed. LIANNE Merritt Pulmonary & Sleep Medicine [facility] I spent a total of Greater than 55 mins (exact time 60 mins) on the date of service in preparation,delivery, and documentation of the care provided to Malou Hernandez excluding any time spent in the performance of separately billed services or time spent by another provider/QHP. documented in this encounter Plan of Treatment Upcoming Encounters Date Type Department Care Team (Late st Contact Info) Description 04/13/2024 3:30 PM EST Therapy Psychology [facility] [address] [place] [address] Lizbeth Dean LCSW [address] [place] [address] 04/14/2024 7:45 AM EST Office Visit Solar Manager OB Maternal Medicine [facility] Carmenza Ruiz [address] [place] [address] Dr [address] [facility] [place] [address] Jake Muñoz MD [address] [place] [address] 04/14/2024 7:45 AM EST Imaging Maternal Medicine [facility] Carmenza Ruiz [address] [place] [address] Dr [address] [place] [address] 04/24/2024 7:45 AM EST Office Visit Gynecology/Obstetrics [facility] [address] [place] [address] Kiya Dorsey PA-C [address] [place] [address] Scheduled Orders Name Type Priority Associated Diagnoses Orde r Schedule TIMED SLEEP STUDY, UNATTEND, HR/O2 SAT/RESP Procedures Routine Loud snoring Sleep apnea, unspecified type Frequent nocturnal awakening Ordered: 04/11/2024 Health Maintenance Due Date Last Done Comments Pneumococcal Vaccine: Pediatrics (0 to 5 Years) and At-Risk Patients (6 to 18 Years and 19+ Years) (1 of 2 - PCV) 2008 HPV (Gardasil) Vaccine (3 - 3-dose SCDM [...] Unspecified high-risk with 29 completed weeks gestation Loud snoring- Primary Sleep apnea, unspecified type Frequent nocturnal awakening Other sleep disturbances documented in this encounter Additional Health Concerns Active Problems Noted Date Diagnosed Date OB Reminders 03/12/2024 documented as of this encounter Care Teams Medication Technician Relationship Specialty Start Date End Date Glen Swenson MD [address] [facility] [place] [address] PCP - General Family Medicine 04/11/24 documented as of this encounter
--- OUTSIDE RECORDS SUMMARY | 2024-06-02 16:59 | External Medical Summary | Summary of Care ---
Author Name Unknown Organization [facility] Address [address] [place] [address] Phone [phone] Care Team Providers Care Turkey Boner Name Role Phone Glen Swenson MD Primary Care Provider Reason for Visit * Reason Comments Psychotherapy Encounter Details Date Type Department Care Team (Late st Contact Info) Description 04/13/2024 3:30 PM EST Therapy Psychology [facility] [address] [place] [address] Lizbeth Daen, [facility] [address] [place] [address] Adjustment disorder with mixed anxiety and depressed mood* Allergies No known active allergiesdocumented as of this encounter (statuses as of 04/14/2024) Medications Complete Oral Capsule Therapy Pack Take [...] 4 times a day 1 Kit Active [employer] In Vitro Strip (Glucose Blood)Indication s:Gestational diabetes mellitus (GDM) in third trimester, gestational diabetes method of control unspecified Check blood sugar 4 times a day 100 Strip 6 5 Active documented as of this encounter (statuses as of 04/14/2024) Active Problems Problem Noted Date Diagnosed Date Supervision of high risk in third trim gary 04/04/2024 Diet controlled gestational diabetes mellitus (GDM) in third trimester 03/24/2024 Overview (04/12/2024): Diagnosed at 29 weeks Nutrition consult completed [...] overnight for no longer than 8-10 hours. 04/12/20242681-[id number]-uwtllb Assessment & Plan (04/04/2024 1:58 PM EST): [...] Recommend nutrition consult with RDN (Registered Dietitian Heavy Duty Press Operator). Lifestyle changes are also indicated including optimizing [...] as of this encounter (statuses as of 04/14/2024) Resolved Problems Problem Noted Date Diagnosed Date Resolved Date with 29 completed weeks gestation 04/04/2024 04/07/2024 Depressive disorder 03/09/2016 07/22/19 24 documented as of this encounter (statuses as of 04/14/2024) Immunizations Name Administration Dates Next Due COVID-19 mRNA, LNP-s, No Pre serve, 2-Dose Series (Pfizer) 06/24/2020,06/03/2020 Covid-19, Mrna, Lnp-s, Pf, B ivalent, 10 Mcg, IM, 5-11 yrs (Pfizer) 12/29/2022,2021 Covid-19, Mrna, Lnp-s, Pf, B ivalent, 30 Mcg, IM, 12 yrs and above ([employer]) 03/08/2021 HEPATITIS B VACCINE, RECOMB, 20 MCG/ML, [...] money to get more. Never true 07/22/2023 [place] Depression Scale Answer Date Recorded [place] Depression Scale Total 10 11/18/2023 The thought [...] 18 years and over) Not on file 4 Are you (or your family) fernanda eless [...] as of this encounter Progress Notes * Lizbeth Dean LCSW - 04/13/2024 3:33 PM EST PRIMARY CARE BEHAVIORAL HEALTH FOLLOW-UP 04/13/2024 Length of visit: 50 minutes (3:40 pm - 4:35 pm) Type of Visit: individual Treatment session number: 5 AGENDA & ACTION PLAN: Check in-Malou shared update of her situation. -Today therapists utilized open ended, closed ended, clarifying questions and empathetic and activelistening to promote expression of thoughts and feelings as Malou shared update of her situation. She shared about her and provided update on her heatlh. She shared about her management of anxiety and worries having to do with identity, management of and . We took time to process in session. We also discussed ways Malou can care for herself, prepare for and discussed what she might need, what helps her cope and manage. Therapist also utilized CBT with use of re-framing and considering how she thinks about things. Therapist shared concepts of transitions and radical acceptance. Accepting what she cannot change and being aware of what she can do to manage. -We also reviewed treatment plan and we discussed update to treatment plan as Malou finding therapyhelpful and would like to continue. Optional: Interventions addressed in treatment thus far: Treatment/Intervention Visit 04/13/2024 1 2 3 4 5 6 Behavioral activation Behavior modification for poor health behaviors (e.g., smoking cessation) Breathing re-training mindfulness training Cognitive restructuring/diffusion x Exercise/physical activity Problem-solving Psychoeducation x Exposure and/or response prevention Supportive therapy x Sleep hygiene Stimulus control Time in bed restriction Conduct WHO (BHCM,ELLEN,MTM) MENTAL STATUS EXAMINATION: No changes to mental status since last visit. No change in suicide or homicide risk status since last visit. Level of suicide completion risk:Low Risk (wish to or ideation without method, intent, plan, orbehavior; modifiable risk factors and strong protective factors; or no reported history of ideationor behavior): Pt has agreed to return for further psychotherapy. Adjustment disorder with mixed anxiety and depression. RETURN 2 WEEKS for individual cognitive behavioral therapy. Lizbeth Dean LCSW Primary Care Behavioral Health Psychology [address] [address] documented in this encounter Plan of Treatment Upcoming Encounters Date Type Department Care Team (Late st Contact Info) Description 04/14/2024 7:45 AM EST Office Visit Hide Grader OB Maternal Medicine [facility] Carmenza Ruiz [address] [place] [address] [address] [place] [address] Jake Muñoz MD [address] [place] [address] 04/14/2024 7:45 AM EST [facility] [place] Ruiz [address] [place] [address] [address] [place] [address] 04/24/2024 7:45 AM EST Office Visit Gynecology/Obstetrics [place] [address] [place] [address] Kiya Dorsey PA-C [address] [place] [address] 05/05/2024 9:30 AM EST Therapy Psychology [facility] [address] [place] [address] Lizbeth Dean, REFERRAL AND INFORMATION AIDE [address] [place] [address] Health Maintenance Due Date Last Done Comments [...] Author Reminders Care Plan OB Reminders No Bhargav Provider documented as of this encounter Medical Devices Not on filedocumented as of this encounter Visit Diagnoses Diagnosis Diet controlled gestational diabetes mellitus (GDM) in third trimester- Primary Supervision of high risk in third trimester Unspecified high-risk with 29 completed weeks gestation Adjustment disorder with mixed anxiety and depressed mood- Primary documented in this encounter Additional Health Concerns Active Problems Noted Date Diagnosed Date OB Reminders 03/12/2024 documented as of this encounter Care Teams Turkey Boner Relationship Specialty Start Date End Date Glen Swenson MD [address] [facility] [place] [address] PCP - General Family Medicine 04/11/24 documented as of this encounter
--- OUTSIDE RECORDS SUMMARY | 2024-06-02 16:59 | External Medical Summary | Summary of Care ---
Author Name Unknown Organization [facility] Address [address] [place] [address] Phone [phone] Care Team Providers Care Seismic Engineer Name Role Phone Glen Swenson MD Primary Care Provider Reason for Visit * Reason Onset Date Comments Scheduling 04/11/2024 HSTINS Encounter Details Date Type Department Care Team (Late st Contact Info) Description 04/11/2024 Telephone Sleep Lab [facility] 132 [facility] [place] [address] Garay, Sleep Med Home Study [facility] 132 [place] [address] Scheduling (HST/INS) Allergies No known active allergiesdocumented as of this encounter (statuses as of 04/18/2024) Medications Complete Oral Capsule Therapy Pack Take [...] times a day 1 Kit 5 Active [employer] In Vitro Strip (Glucose Blood)Indication s:Gestational diabetes mellitus (GDM) in third trimester, gestational diabetes method of control unspecified Check blood sugar 4 times a day 100 Strip 6 5 Active documented as of this encounter (statuses as of 04/18/2024) Active Problems Problem Noted Date Diagnosed Date [...] overnight for no longer than 8-10 hours. 04/12/20243528-POI-wjyqoy Assessment & Plan (04/14/2024 8:31 AM EST): [...] Recommend nutrition consult with RDN (Registered Dietitian Curtain Stitcher). Lifestyle changes are also indicated including optimizing [...] as of this encounter (statuses as of 04/18/2024) Resolved Problems Problem Noted Date Diagnosed Date Resolved Date with 29 completed weeks gestation 04/04/2024 04/07/2024 Depressive disorder 03/09/2016 07/22/19 24 documented as of this encounter (statuses as of 04/18/2024) Immunizations Name Administration Dates Next Due COVID-19 [...] money to get more. Never true 07/22/2023 [place] Depression Scale Answer Date Recorded [place] Depression Scale Total 10 11/18/2023 The thought [...] No 07/22/2023 Does the household have a [facility] source [facility] income? (Household - for ages [...] encounter Miscellaneous Notes * Telephone Encounter - Katrina Gold CRNP - 04/11/2024 11:45 AM EST Please use updated order [id number] / DELBERT Please expedite if insurance allows due to current (30 week gestation) * Telephone Encounter - Gladys Black OSA - 04/11/2024 11:06 AM EST HST [facility] [employer] OOS 3/TO 4 WEEKS documented in this encounter Plan of Treatment Upcoming Encounters Date Type Department Care Team (Late st Contact Info) Description 04/24/2024 7:45 AM EST Office Visit Gynecology/Obstetrics [facility] [address] [place] [address] Kiya Dorsey PA-C [address] [place] [address] 05/05/2024 9:30 AM EST Therapy Psychology [facility] [address] [place] [address] Lizbeth Dean LCSW [address] [place] [address] Health Maintenance Due Date Last Done Comments [...] Author Reminders Care Plan OB Reminders No [place], Provider documented as of this encounter Medical Devices Not on filedocumented as of this encounter Additional Health Concerns Active Problems Noted Date Diagnosed Date OB Reminders 03/12/2024 documented as of this encounter Care Teams Seismic Engineer Relationship Specialty Start Date End Date Glen Swenson MD [address] [facility] [place] [address] PCP - General Family Medicine 04/11/24 documented as of this encounter
--- OUTSIDE RECORDS SUMMARY | 2024-06-02 16:59 | External Medical Summary | Summary of Care ---
Author Name Unknown Organization [facility] Address [address] [place] [address] Phone [phone] Care Team Providers Care V Belt Coverer Name Role Phone Glen Swenson MD Primary Care Provider Reason for Visit * Reason Onset Date Comments Scheduling 04/11/2024 HSTINS Encounter Details Date Type Department Care Team (Late st Contact Info) Description 04/11/2024 Telephone Sleep Lab [facility] 132 [facility] [place] [address] Garay, Sleep Med Home Study [facility] 132 [place] [address] Scheduling (HST/INS) Allergies No known active allergiesdocumented [...] sugar 4 times a day 1 Kit 01/24/202 5 Active [employer] In Vitro Strip (Glucose Blood)Indication s:Gestational diabetes [...] Recommend nutrition consult with RDN (Registered Dietitian Veterinary Physiologist). Lifestyle changes are also indicated including optimizing [...] mRNA, LNP-s, No Pre serve, 2-Dose Series ([employer]) 06/24/2020,06/03/2020 Covid-19, Mrna, Lnp-s, Pf, B ivalent, 10 Mcg, IM, 5-11 yrs (Pfizer) 12/29/2022,2021 Covid-19, Mrna, Lnp-s, Pf, B ivalent, 30 Mcg, IM, 12 yrs and above ([employer]2we) 03/08/2021 HEPATITIS B VACCINE, RECOMB, 20 MCG/ML, [...] money to get more. Never true 07/22/2023 [place] Depression Scale Answer Date Recorded [place] Depression Scale Total 10 11/18/2023 The thought [...] 11:45 AM EST Please use updated order [id number] / DELBERT Please expedite if insurance allows due to current (30 week gestation) * Telephone Encounter - Gladys Black OSA - 04/11/2024 11:06 AM EST HST [facility] BCBS OOS 3/TO 4 WEEKS documented in this encounter Plan of Treatment Upcoming Encounters Date Type Department Care Team (Late st Contact Info) Description 04/13/2024 3:30 PM EST Therapy Psychology [facility] [address] [place] [address] Lizbeth Dean LCSW [address] [place] [address] 04/14/2024 7:45 AM EST Office Visit Behavioral Health Worker [facility] Carmenza Ruiz [address] [place] [address] [address] [place] [address] Jake Muñoz MD [address] [place] [address] 04/14/2024 7:45 AM EST Imaging Maternal Medicine [facility] Carmenza Ruiz [address] [place] [address] [address] [place] [address] 04/24/2024 7:45 AM EST Office Visit Gynecology/Obstetrics [facility] [address] [place] [address] Kiya Dorsey PA-C [address] [place] [address] Health Maintenance Due Date Last Done Comments [...] documented as of this encounter Care Teams V Belt Coverer Relationship Specialty Start Date End Date Glen Swenson MD [address] [facility] [place] [address] PCP - General Family Medicine 04/11/24 documented as of this encounter
--- OUTSIDE RECORDS SUMMARY | 2024-06-02 16:59 | External Medical Summary | Summary of Care ---
Author Name Unknown Organization [facility] Address [address] [place] [address] Phone [phone] Care Team Providers Care Front Desk Name Role Phone Glen Swenson MD Primary Care Provider Reason for Visit * Reason Onset Date Comments Review Sleep Study 04/28/2024 No significan t sleep apnea Encounter Details Date Type Department Care Team (Late st Contact Info) Description 04/28/2024 Telephone Sleep Disorders [facility] [place] [address] Katrina Gold CRNP [address] [place] [address] Review Sleep Study (No significant sleep a... Allergies No known active allergiesdocumented as of this encounter (statuses as of 04/28/2024) Medications Complete Oral Capsule Therapy Pack Take [...] times a day 1 Kit 5 Active [employer] In Vitro Strip (Glucose Blood)Indication s:Gestational diabetes mellitus (GDM) in third trimester, gestational diabetes method of control unspecified Check blood sugar 4 times a day 100 Strip 6 5 Active documented as of this encounter (statuses as of 04/28/2024) Active Problems Problem Noted Date Diagnosed Date Supervision of high risk in third trim gary 04/04/2024 Diet controlled gestational diabetes mellitus (GDM) in third trimester 03/24/2024 Overview (04/26/2024): Diagnosed at 29 weeks Nutrition consult completed [...] overnight for no longer than 8-10 hours. 04/12/[id number]-YSM-eojlsq 04/18/24: RPM reviewed; overall stable; diet controlled 04/26/24: RPM reviewed; overall stable, diet controlled Assessment & Plan (04/14/2024 8:31 AM EST): [...] Recommend nutrition consult with RDN (Registered Dietitian Studio Manager). Lifestyle changes are also indicated including [...] as of this encounter (statuses as of 04/28/2024) Resolved Problems Problem Noted Date Diagnosed Date Resolved Date with 29 completed weeks gestation 04/04/2024 04/07/2024 Depressive disorder 03/09/2016 07/22/19 24 documented as of this encounter (statuses as of 04/28/2024) Immunizations Name Administration Dates Next Due COVID-19 mRNA, LNP-s, No Pre serve, 2-Dose Series ([employer]) 06/24/2020,06/03/2020 Covid-19, Mrna, Lnp-s, Pf, B ivalent, [...] money to get more. Never true 07/22/2023 [place] Depression Scale Answer Date Recorded [place] Depression Scale Total 10 11/18/2023 The thought [...] No 07/22/2023 Does the household have a [facility] source [facility]? (Household - for ages [...] AM EDT documented as of this encounter Plan of Treatment Upcoming Encounters Date Type Department Care Team (Late st Contact Info) Description 05/05/2024 9:30 AM EST Therapy Psychology [facility] [address] [place] [address] Lizbeth Dean, MEAT MOLDER [address] [place] [address] 05/12/2024 7:45 AM EDT Office Visit Gynecology/Obstetrics [facility] [address] [place] [address] Kiya Dorsey PA-C [address] [place] [address] 05/22/2024 8:30 AM EDT Office Visit Gynecology/Obstetrics [facility] [address] [place] [address] Maggie Monique CRNP [address] [place] [address] 05/29/2024 8:00 AM EDT Office Visit Gynecology/Obstetrics [facility] [address] [place] [address] Shakila Thurston CRNP [address] [place] [address] 06/05/2024 8:30 AM EDT Office Visit Gynecology/Obstetrics [facility] [address] [place] [address] Maggie Monique CRNP [address] [place] [address] 06/12/2024 9:30 AM EDT Office Visit Gynecology/Obstetrics [facility] [address] [place] [address] Melina Patel PA-C [address] [place] [address] Health Maintenance Due Date Last Done Comments [...] documented as of this encounter Care Teams Front Desk Relationship Specialty Start Date End Date Glen Swenson MD [address] [facility] [place] [address] PCP - General Family Medicine 04/11/24 documented as of this encounter
--- OUTSIDE RECORDS SUMMARY | 2024-06-02 16:59 | External Medical Summary | Summary of Care ---
Author Name Unknown Organization [facility] Address [address] [place] [address] Phone [phone] Care Team Providers Care Barrel Maker Name Role Phone Glen Swenson MD Primary Care Provider Reason for Visit * Reason Comments Psychotherapy Encounter Details Date Type Department Care Team (Late st Contact Info) Description 05/05/2024 9:30 AM EST Therapy Psychology [facility] [address] [place] [address] Lizbeth Dean, [facility] [address] [place] [address] Adjustment disorder with mixed anxiety and depressed mood* Allergies No known active allergiesdocumented as of this encounter (statuses as of 05/05/2024) Medications Complete Oral Capsule Therapy Pack Take [...] 4 times a day 1 Kit Active [employer] In Vitro Strip (Glucose Blood)Indication s:Gestational diabetes mellitus (GDM) in third trimester, gestational diabetes method of control unspecified Check blood sugar 4 times a day 100 Strip 6 5 Active documented as of this encounter (statuses as of 05/05/2024) Active Problems Problem Noted Date Diagnosed Date Supervision of high risk in third trim gary 04/04/2024 Diet controlled gestational diabetes mellitus (GDM) in third trimester 03/24/2024 Overview (05/03/2024): Diagnosed at 29 weeks Nutrition consult completed [...] overnight for no longer than 8-10 hours. 04/12/20243624-[id number] 04/18/24: RPM reviewed; overall stable; diet controlled 04/26/24: RPM reviewed; overall stable, diet controlled 05/03/[id number]-[id number]-[id number] Assessment & Plan (04/14/2024 8:31 AM EST): [...] Recommend nutrition consult with RDN (Registered Dietitian Nurse Companion). Lifestyle changes are also indicated including optimizing [...] as of this encounter (statuses as of 05/05/2024) Resolved Problems Problem Noted Date Diagnosed Date Resolved Date with 29 completed weeks gestation 04/04/2024 04/07/2024 Depressive disorder 03/09/2016 07/22/19 24 documented as of this encounter (statuses as of 05/05/2024) Immunizations Name Administration Dates Next Due COVID-19 mRNA, LNP-s, No Pre serve, 2-Dose Series ([employer]) 06/24/2020,06/03/2020 Covid-19, Mrna, Lnp-s, Pf, B ivalent, [...] money to get more. Never true 07/22/2023 [place] Depression Scale Answer Date Recorded [place] Depression Scale Total 10 11/18/2023 The thought [...] No 07/22/2023 Does the household have a [facility] source of income? (Household - for ages [...] of this encounter Progress Notes * Lizbeth Dean, PHIL - 05/05/2024 9:34 AM EST THERAPY/PSYCHOLOGY DISCHARGE SUMMARY 1. Summary of Services provided: Individual Therapy 2. Outcomes and referrals: Patient transferring to another therapist as this therapist leaving [facility]. 3. Relevant psychosocial status: anxiety and depression management related to life stressors. Plan of care at time of discharge including referrals: Use crisis plan as needed Can consult us in the future as clinically indicated Patient and/or family has access to this document through [facility] PRIMARY CARE BEHAVIORAL HEALTH FOLLOW-UP 05/05/2024 Length of visit: 50 minutes (9:40 am - 10:30 am) Type of Visit: individual Treatment session number: 6 AGENDA & ACTION PLAN: -Check in-Malou shared update of her situation. -Today therapist utilized empathetic and active listening to promote expression of thoughts and feelings as Malou shared more about her situation. Today Malou shared positive experience at work and we spent time processing this in session- looking at contributing factors, what this means to Malou and how she views this experience. Malou also sharing negative experience related to others response to her preparing for maternity leave. We also spent time processing this in session considering what this says to Malou, exploring how she wants to manage this and address it. Malou expressed her view,what she has done and what she will do to communicate her needs. Therapist provided positive feedback. -Today We also took time to follow up on Malou's thoughts about her related to preparation and her worries about her self identify. Malou shared her thoughts and feelings. -Today was likely our last session (unless Malou can get on the cancellation list.) We took time toprocess and have closure. Optional: Interventions addressed in treatment thus far: Treatment/Intervention Visit 05/05/2024 1 2 3 4 5 6 Behavioral activation Behavior modification for poor health behaviors (e.g., smoking cessation) Breathing re-training mindfulness training Cognitive restructuring/diffusion x Exercise/physical activity Problem-solving x Psychoeducation Exposure and/or response prevention Supportive therapy x [...] psychotherapy. Adjustment disorder with mixed anxiety and depressed mood. RETURN 2 WEEKS for individual cognitive behavioral therapy. Lizbeth Dean LCSW Primary Care Behavioral Health Psychology [facility] [address] [place] [address] documented in this encounter Plan of Treatment Upcoming Encounters Date Type Department Care Team (Late st Contact Info) Description 05/08/2024 11:45 AM EDT Office Visit Gynecology/Obstetrics [facility] [address] [place] [address] Maggie Monique CRNP [address] [place] [address] 05/22/2024 8:30 AM EDT Office Visit Gynecology/Obstetrics [facility] [address] [place] [address] Maggie Monique CRNP [address] [place] [address] 05/29/2024 8:00 AM EDT Office Visit Gynecology/Obstetrics [facility] [address] [place] [address] Shakila Thurston CRNP [address] [place], [place] [address] 06/05/2024 8:30 AM EDT Office Visit Gynecology/Obstetrics [facility] [address] [place] [address] Maggie Monique CRNP [address] [place] [address] 06/12/2024 9:30 AM EDT Office Visit Gynecology/Obstetrics [facility] [address] [place] [address] Melina Patel PA-C [address] [place] [address] Health Maintenance Due Date Last Done Comments [...] diabetes mellitus (GDM) in third trimester- Primary Adjustment disorder with mixed anxiety and depressed mood- Primary documented in this encounter Additional Health Concerns Active Problems Noted Date Diagnosed Date OB Reminders 03/12/2024 documented as of this encounter Care Teams Barrel Maker Relationship Specialty Start Date End Date Glen Swenson MD [address] [place] [address] PCP - General Family Medicine 04/11/24 documented as of this encounter
--- OUTSIDE RECORDS SUMMARY | 2024-06-02 16:59 | External Medical Summary | Summary of Care ---
Author Name Unknown Organization [facility] Address [address] [place] [address] Phone [phone] Care Team Providers Care Fire Inspector Name Role Phone Glen Swesnon MD Primary Care Provider Reason for Visit * Reason Onset Date Comments Scheduling 04/11/2024 HSTINS Encounter Details Date Type Department Care Team (Late st Contact Info) Description 04/11/2024 Telephone Sleep Lab [facility] [address] [facility] [place] [address] Garay, Sleep Med Home Study [facility] [address] [place] [address] Scheduling (HST/INS) Allergies No known active allergiesdocumented [...] a day 1 Kit 01/24/202 5 Active [employer] In Vitro Strip (Glucose Blood)Indication s:Gestational diabetes [...] Recommend nutrition consult with RDN (Registered Dietitian Cook Apprentice Pastry). Lifestyle changes are also indicated including optimizing [...] mRNA, LNP-s, No Pre serve, 2-Dose Series ([employer]) 06/24/2020,06/03/2020 Covid-19, Mrna, Lnp-s, Pf, B ivalent, 10 Mcg, IM, 5-11 yrs (Pfizer) 12/29/2022,2021 Covid-19, Mrna, Lnp-s, Pf, B ivalent, 30 Mcg, IM, 12 yrs and above ([employer]) 03/08/2021 HEPATITIS B VACCINE, RECOMB, 20 MCG/ML, [...] money to get more. Never true 07/22/2023 [place] Depression Scale Answer Date Recorded [place] Depression Scale Total 10 11/18/2023 The thought [...] 11:45 AM EST Please use updated order [id number] / DELBERT Please expedite if insurance allows due to current (30 week gestation) * Telephone Encounter - Gladys Black OSA - 04/11/2024 11:06 AM EST HST [facility] BCBS OOS 3/TO 4 WEEKS documented in this encounter Plan of Treatment Upcoming Encounters Date Type Department Care Team (Late st Contact Info) Description 04/13/2024 3:30 PM EST Therapy Psychology [facility] [address] [place] [address] Lizbeth Dean LCSW [address] [place] [address] 04/14/2024 7:45 AM EST Office Visit Showroom Manager [facility] [address] [place] [address] [address] [place] [address] aJke Muñoz MD [address] [place] [address] 04/14/2024 7:45 AM EST Imaging Maternal Medicine [facility] Carmenza Ruiz [address] [place] [address] [address] [place] [address] 04/24/2024 7:45 AM EST Office Visit Gynecology/Obstetrics [facility] [address] [place] [address] Kiya Dorsey PA-C [address] [place] [address] Health Maintenance Due Date Last Done Comments [...] documented as of this encounter Care Teams Fire Inspector Relationship Specialty Start Date End Date Glen Swenson MD 132 [facility] [place] [address] PCP - General Family Medicine 04/11/24 documented as of this encounter
--- OUTSIDE RECORDS SUMMARY | 2024-06-02 16:59 | External Medical Summary | Summary of Care ---
Author Name Unknown Organization [facility] Address [address] [place] [address] Phone [phone] Care Team Providers Care System Planning Engineer Name Role Phone Glen Swenson MD Primary Care Provider Encounter Details Date Type Department Care Team (Late st Contact Info) Description 04/14/2024 7:45 AM EST Office Visit Sales Expert OB Maternal Medicine [facility] Carmenza Ruiz [address] [place] [address] [address] [place], [place] [id number] Jake Muñoz MD [address] [place] [address] Diet controlled gestational diabetes mellitus (GDM) in third trimester* Allergies No known active allergiesdocumented as of [...] overnight for no longer than 8-10 hours. 04/12/20243963-RLX-ckahtt Assessment & Plan (04/14/2024 8:31 AM EST): [...] nutrition consult with RDN (Registered Dietitian Nurse Gynecology). Lifestyle changes are also indicated including optimizing [...] money to get more. Never true 07/22/2023 [place] Depression Scale Answer Date Recorded [place] Depression Scale Total 10 11/18/2023 The thought [...] as of this encounter Progress Notes * Jake Muñoz MD - 04/14/2024 8:19 AM EST MATERNAL MEDICINE VISIT Malou Hernandez is at 31w1d who presents to [facility] for an ultrasound and follow-up of her high risk . The patient is currently 31 weeks 1 day gestation with gestational diabetes controlled by diet. Shecomes in for an evaluation of anatomy. She is being seen today by Maternal- Medicine for the following reasons: Problem List Items Addressed This Visit Diet controlled gestational diabetes mellitus (GDM) in third trimester - Primary I reviewed the ultrasound with her. The anatomy that was visualized appears unremarkable and the biometry is appropriate the gestational age. The amniotic fluid volume is normal at 13 cm.The overall estimated weight is consistent with the [...] there currently is no indication for return. Thank you for allowing us to participate in the care of this patient. Please call with any questions. I spent 20 minutes with Ms. Hernandez of which greater than 50% was spent in face to face consultation and coordination of care for the above. Jake Muñoz MD 04/14/2024 8:19 AM documented in this encounter Miscellaneous Notes * Assessment & Plan Note - Jake Muñoz MD - 04/14/2024 8:23 AM EST Associated Problem(s): Diet controlled gestational diabetes mellitus (GDM) in third trimester I reviewed the ultrasound with her. The anatomy that was visualized appears unremarkable and the biometry is appropriate the gestational age. The amniotic fluid volume is normal at 13 cm.The overall estimated weight is consistent with the [...] there currently is no indication for return. documented in this encounter Plan of Treatment Upcoming Encounters Date Type Department Care Team (Late st Contact Info) Description 04/24/2024 7:45 AM EST Office Visit Gynecology/Obstetrics [facility] [address] [place] [address] Kiya Dorsey PA-C [address] [place] [address] 05/05/2024 9:30 AM EST Therapy Psychology [facility] [address] [place] [address] Lizbeth Dean, SEO TEAM LEAD [address] [place] [address] Health Maintenance Due Date Last Done Comments [...] diabetes mellitus (GDM) in third trimester- Primary documented in this encounter Additional Health Concerns Active Problems Noted Date Diagnosed Date OB Reminders 03/12/2024 documented as of this encounter Care Teams System Planning Engineer Relationship Specialty Start Date End Date Glen Swenson MD [address] [place] [address] PCP - General Family Medicine 04/11/24 documented as of this encounter
--- OUTSIDE RECORDS SUMMARY | 2024-06-02 16:59 | External Medical Summary | Summary of Care ---
Author Name Unknown Organization [facility] Address [address] [place] [address] Phone [phone] Care Team Providers Care Slate Roofer Name Role Phone Glen Swenson MD Primary Care Provider Reason for Visit * Reason Onset Date Comments Scheduling 04/11/2024 HSTINS Encounter Details Date Type Department Care Team (Late st Contact Info) Description 04/11/2024 Telephone Sleep Lab [facility] [address] [facility] [place] [address] Garay, Sleep Med Home Study [facility] 132 [place] [address] Scheduling (HST/INS) Allergies No known active allergiesdocumented [...] a day 1 Kit 01/24/202 5 Active [employer] In Vitro Strip (Glucose Blood)Indication s:Gestational [...] Recommend nutrition consult with RDN (Registered Dietitian Die Polisher). Lifestyle changes are also indicated including optimizing [...] mRNA, LNP-s, No Pre serve, 2-Dose Series ([employer]) 06/24/2020,06/03/2020 Covid-19, Mrna, Lnp-s, Pf, B ivalent, 10 Mcg, IM, 5-11 yrs (Pfizer) 12/29/2022,2021 Covid-19, Mrna, Lnp-s, Pf, B ivalent, 30 Mcg, IM, 12 yrs and above ([employer]) 03/08/2021 HEPATITIS B VACCINE, RECOMB, 20 MCG/ML, [...] money to get more. Never true 07/22/2023 [place] Depression Scale Answer Date Recorded [place] Depression Scale Total 10 11/18/2023 The thought [...] encounter Miscellaneous Notes * Telephone Encounter - Katrnia Gold CRNP - 04/11/2024 11:45 AM EST Please use updated order [id number] / DELBERT Please expedite if insurance allows due to current (30 week gestation) * Telephone Encounter - Gladys Black OSA - 04/11/2024 11:06 AM EST HST [facility] BCBS OOS 3/TO 4 WEEKS documented in this encounter Plan of Treatment Upcoming Encounters Date Type Department Care Team (Late st Contact Info) Description 04/13/2024 3:30 PM EST Therapy Psychology [facility] [address] [place] [address] Lizbeth Dean LCSW [address] [place] [address] 04/14/2024 7:45 AM EST Office Visit [employer] [facility] Carmenza Ruiz [address] [place] [address] [address] [place] [address] Jake Muñoz MD [address] [place] [address] 04/14/2024 7:45 AM EST Imaging Maternal Medicine [facility] Carmenza Ruiz [address] [place] [address] [address] [place] [address] 04/24/2024 7:45 AM EST Office Visit Gynecology/Obstetrics [facility] [address] [place] [address] Kiya Dorsey PA-C [address] [place] [address] Health Maintenance Due Date Last Done Comments [...] documented as of this encounter Care Teams Slate Roofer Relationship Specialty Start Date End Date Glen Swenson MD 132 [facility] [place] [address] PCP - General Family Medicine 04/11/24 documented as of this encounter
--- OUTSIDE RECORDS SUMMARY | 2024-06-02 16:59 | External Medical Summary | Summary of Care ---
Author Name Unknown Organization [facility] Address [address] [place] [address] Phone [phone] Care Team Providers Care Ecommerce Marketing Specialist Name Role Phone Unavailable Primary Care Provider Unavailabl e Reason for Visit * Reason Comments Return Visit Encounter Details Date Type Department Care Team (Late st Contact Info) Description 04/07/2024 8:30 AM EST Office Visit Gynecology/Obstetric s [facility]jhony Garay [address] [place] [address] BackerMaggie CRNP [address] [place] [address] Supervision of high risk in third trimester*; Anxiety during ; Maternal asthma complicating ; Diet controlled gestational diabetes mellitus (GDM) in third trimester; Snoring Allergies No known active allergiesdocumented as of this encounter (statuses as of 04/07/2024) Medications Complete Oral Capsule Therapy Pack Take [...] 4 times a day 1 Kit Active [employer] In Vitro Strip (Glucose Blood)Indication s:Gestational diabetes mellitus (GDM) in third trimester, gestational diabetes method of control unspecified Check blood sugar 4 times a day 100 Strip 6 Active documented as of this encounter (statuses as of 04/07/2024) Active Problems Problem Noted Date Diagnosed Date [...] Recommend nutrition consult with RDN (Registered Dietitian Driver/Merchandiser). Lifestyle changes are also indicated including optimizing [...] as of this encounter (statuses as of 04/07/2024) Resolved Problems Problem Noted Date Diagnosed Date Resolved Date with 29 completed weeks gestation 04/04/2024 04/07/2024 Depressive disorder 03/09/2016 07/22/19 24 documented as of this encounter (statuses as of 04/07/2024) Immunizations Name Administration Dates Next Due COVID-19 mRNA, LNP-s, No Pre serve, 2-Dose Series ([employer]) 06/24/2020,06/03/2020 Covid-19, Mrna, Lnp-s, Pf, B ivalent, 10 Mcg, IM, 5-11 yrs (Pfizer) 12/29/2022,2021 Covid-19, Mrna, Lnp-s, Pf, B ivalent, 30 Mcg, IM, 12 yrs and above ([employer]) 03/08/2021 HEPATITIS B VACCINE, RECOMB, 20 MCG/ML, [...] money to get more. Never true 07/22/2023 [place] Depression Scale Answer Date Recorded [place] Depression Scale Total 10 11/18/2023 The thought [...] Sign Reading Time Taken Comments Blood Pressure 110/62 04/07/2024 8:36 AM EST Pulse - - Temperature - - Respiratory Rate - - Oxygen Saturation - - Inhaled Oxygen Concentration - - Weight 60.8 kg (134 lb) 04/07/2024 8:36 AM EST Height - - Body Mass Index 25.14 03/31/2024 1:24 PM EST documented in this encounter Progress Notes * Maggie Monique CRNP - 04/07/2024 9:00 AM EST 30w1d Doing well, good movement. No ctx, leaking, bleeding. Looking into peds, completed some childbirth classes. Discussed growth in light of GDM; she is scheduled for a growth scan with MFM next week. Having episodes of snoring and what feels like sleep apnea - had this pre- but it has worsened. No relief with conservative measures. PCP would not order a sleep med referral. Ask A Doc sentto sleep medicine and will f/u with patient once we hear back - she is pleased with this. 2 week return LIANNE Ibrahim * Jessy Gomez LPN - 04/07/2024 8:36 AM EST 30w1d Denies vaginal bleeding/rom + movement Questions regarding GDM documented in this encounter Plan of Treatment Upcoming Encounters Date Type Department Care Team (Late st Contact Info) Description 04/13/2024 3:30 PM EST Therapy Psychology [facility] [address] [place] [address] Lizbeth Dean, REGISTERED RESPIRATORY THERAPIST [address] [place] [address] 04/14/2024 7:45 AM EST Office Visit Pier Master Assistant OB Maternal Medicine [facility] Carmenza Ruiz [address] [place] [address] [address] [place] [address] Jake Muñoz MD [address] [facility] [address] 04/14/2024 7:45 AM EST Imaging Maternal Medicine [facility] Carmenza Ruiz [address] [place] [address] [address] [place] [address] 04/24/2024 7:45 AM EST Office Visit Gynecology/Obstetrics [facility] [address] [place] [address] Kiya Dorsey PA-C [address] [place] [address] Health Maintenance Due Date Last Done Comments [...] Unspecified high-risk with 29 completed weeks gestation Supervision of high risk in third trimester- Primary Unspecified high-risk Anxiety during Maternal asthma complicating Other current maternal conditions classifiable elsewhere, complicating , childbirth, or the puerperium, unspecified as to episode of care Diet controlled gestational diabetes mellitus (GDM) in third trimester Snoring Other dyspnea and respiratory abnormality documented in this encounter Additional Health Concerns Active Problems Noted Date Diagnosed Date OB Reminders 03/12/2024 documented as of this encounter
--- OUTSIDE RECORDS SUMMARY | 2024-06-02 16:59 | External Medical Summary | Summary of Care ---
Author Name Unknown Organization [facility] Address [address] [place] [address] Phone [phone] Care Team Providers Care Aboriginal Home School Liaison Officer Name Role Phone Unavailable Primary Care Provider Unavailabl e Reason for Visit * Reason Onset Date Comments Home Monitoring Orders Only 04/05/2024 Encounter Details Date Type Department Care Team (Late st Contact Info) Description 04/05/2024 Home Monitoring Care Coordination [address] [place] [address] Judie De La Fuente CRNP [address] [place], [place] [id number] Diet controlled gestational diabetes mellitus (GDM) in third trimester* Allergies No known active allergiesdocumented as of this encounter (statuses as of 04/05/2024) Medications Complete Oral Capsule Therapy Pack Take [...] as of this encounter (statuses as of 04/05/2024) Active Problems Problem Noted Date Diagnosed Date Supervision of high risk in third trim gary 04/04/2024 with 29 completed weeks gestation 05/2024 Diet controlled gestational diabetes mellitus (GDM) in [...] Recommend nutrition consult with RDN (Registered Dietitian Blade Groover). Lifestyle changes are also indicated including optimizing [...] as of this encounter (statuses as of 04/05/2024) Resolved Problems Problem Noted Date Diagnosed Date Resolved Date Depressive disorder 03/09/2016 07/22/19 24 documented as of this encounter (statuses as of 04/05/2024) Immunizations Name Administration Dates Next Due COVID-19 mRNA, LNP-s, No Pre serve, 2-Dose Series ([employer]) 06/24/2020,06/03/2020 Covid-19, Mrna, Lnp-s, Pf, B ivalent, 10 Mcg, IM, 5-11 yrs (Pfizer) 12/29/2022,2021 Covid-19, Mrna, Lnp-s, Pf, B ivalent, 30 Mcg, IM, 12 yrs and above ([employer]) 03/08/2021 HEPATITIS B VACCINE, RECOMB, 20 MCG/ML, [...] money to get more. Never true 07/22/2023 [place] Depression Scale Answer Date Recorded [place] Depression Scale Total 10 11/18/2023 The thought [...] as of this encounter Progress Notes * Db Holden, [employer] Switchboard Operator - 04/05/2024 1:19 PM EST Patient has been successfully enrolled to the [id number] Diabetes Management in program. Standard alarm settings have been set as follows: Singular glucose level > 200 Singular glucose level < 60 Patient has been advised to take blood sugar four times a day (fasting upon waking, and one hour after each meal). Patient has been oriented to remote patient monitoring, assisted with initial device set-up, and provided with instruction and education regarding the program. Patient understands that this monitoring should not be used as a replacement for emergency and/or urgent care. If patient experiences any urgent symptoms, they are aware to call office/administration assistant provider for additional instructions. In emergency situations, they will report directly to the ED for further evaluation. If you would like to customize the alert parameters and/or instructions for this patient, please let me know and we can have them changed. Db Holden Community Programs Specialist Electronically signed by Db Holden, [employer] Switchboard Operator at 04/05/2024 1:20 PM EST documented in this encounter Plan of Treatment Upcoming Encounters Date Type Department Care Team (Late st Contact Info) Description 04/07/2024 8:30 AM EST Office Visit Gynecology/Obstetrics [facility] [address] [place] [address] Maggie Monique CRNP [address] [place] [address] 04/13/2024 3:30 PM EST Therapy Psychology [facility] [address] [place] [address] Lizbeth Dean LCSW [address] [place] [address] 04/14/2024 7:45 AM EST Office Visit Stock Replenisher OB Maternal Medicine [facility] Carmenza Ruiz [address] [place] [address] [address] [place] [address] Jake Muñoz MD [address] [place] [address] 04/14/2024 7:45 AM EST Imaging Maternal Medicine [facility] Carmenza Ruiz [address] [place] [address] [address] [facility] [place] [address] Health Maintenance Due Date Last Done Comments [...]
--- OUTSIDE RECORDS SUMMARY | 2024-06-02 16:59 | External Medical Summary | Summary of Care ---
Author Name Unknown Organization [facility] Address [address] [place] [address] Phone [phone] Care Team Providers Care Therapeutic Recreation Leader Name Role Phone Glen Swenson MD Primary Care Provider Reason for Visit * Reason Comments Return Visit Encounter Details Date Type Department Care Team (Late st Contact Info) Description 05/08/2024 11:45 AM EDT Office Visit Gynecology/Obstetric s [facility] [address] [place] [address] Maggie Monique CRNP [address] [place] [address] Supervision of high risk in third trimester*; Anxiety during ; Maternal asthma complicating ; Diet controlled gestational diabetes mellitus (GDM) in third trimester Allergies No known active allergiesdocumented as of this encounter (statuses as of 05/08/2024) Medications Complete Oral Capsule Therapy Pack Take [...] 4 times a day 1 Kit Active [employer] In Vitro Strip (Glucose Blood)Indication s:Gestational diabetes mellitus (GDM) in third trimester, gestational diabetes method of control unspecified Check blood sugar 4 times a day 100 Strip 6 Active documented as of this encounter (statuses as of 05/08/2024) Active Problems Problem Noted Date Diagnosed Date [...] overnight for no longer than 8-10 hours. 04/12/20245539-[id number]-zoqasp 04/18/24: RPM reviewed; overall stable; diet controlled 04/26/24: RPM reviewed; overall stable, diet controlled 05/03/20245829-QOS-exrlxg Assessment & Plan (04/14/2024 8:31 AM EST): [...] Recommend nutrition consult with RDN (Registered Dietitian Plywood Layup Line Core Layer). Lifestyle changes are also indicated including optimizing [...] as of this encounter (statuses as of 05/08/2024) Resolved Problems Problem Noted Date Diagnosed Date Resolved Date with 29 completed weeks gestation 04/04/2024 04/07/2024 Depressive disorder 03/09/2016 07/22/19 24 documented as of this encounter (statuses as of 05/08/2024) Immunizations Name Administration Dates Next Due COVID-19 [...] money to get more. Never true 07/22/2023 [place] Depression Scale Answer Date Recorded [place] Depression Scale Total 8 05/08/2024 The thought [...] Sign Reading Time Taken Comments Blood Pressure 102/60 05/08/2024 11:49 AM EDT Pulse - - Temperature - - Respiratory Rate - - Oxygen Saturation - - Inhaled Oxygen Concentration - - Weight 62.1 kg (137 lb) 05/08/2024 11:49 AM EDT Height - - Body Mass Index 25.7 03/31/2024 1:24 PM EST documented in this encounter Progress Notes * Maggie Monique CRNP - 05/08/2024 11:51 AM EDT 34w4d Given labor instructions. GDMA 1, managed by [facility]. Plans to use OCPs , recommended progesterone only for first 6 mos of . Baby moving well. No ctx, leaking, bleeding. Discussed GBS swab at next visit. 2 week return LIANNE Ibrahim * Jessy Gomez LPN - 05/08/2024 11:49 AM EDT 34w4d Denies vaginal bleeding/rom + movement No new concerns documented in this encounter Plan of Treatment Upcoming Encounters Date Type Department Care Team (Late st Contact Info) Description 05/22/2024 8:30 AM EDT Office Visit Gynecology/Obstetrics [facility] [address] [place] [address] Maggie Monique CRNP [address] [place] [address] 05/29/2024 8:00 AM EDT Office Visit Gynecology/Obstetrics [facility] [address] [place] [address] Shakila Thurston CRNP [address] [place] [address] 06/05/2024 8:30 AM EDT Office Visit Gynecology/Obstetrics [facility] [address] [place] [address] Maggie Monique CRNP [address] [place] [address] 06/12/2024 9:30 AM EDT Office Visit Gynecology/Obstetrics [facility] [address] [place] [address] Melina Patel PA-C [address] [place] [address] Health Maintenance Due Date Last Done Comments [...] documented as of this encounter Care Teams Therapeutic Recreation Leader Relationship Specialty Start Date End Date Glen Swenson MD [address] [place] [address] PCP - General Family Medicine 04/11/24 documented as of this encounter
--- OUTSIDE RECORDS SUMMARY | 2024-06-02 16:59 | External Medical Summary | Summary of Care ---
Author Name Unknown Organization [facility] Address [address] [place] [address] Phone [phone] Care Team Providers Care Supervisor Lamp Shades Name Role Phone Geln Swenson MD Primary Care Provider Reason for Visit * Reason Onset Date Comments Scheduling 04/11/2024 HSTINS Encounter Details Date Type Department Care Team (Late st Contact Info) Description 04/11/2024 Telephone Sleep Lab [facility] [address] [facility] [place] [address] [place], Sleep Med Home Study [facility] [address] [place] [address] Scheduling (HST/INS) Allergies No known active allergiesdocumented [...] a day 1 Kit 01/24/202 5 Active [employer] In Vitro Strip (Glucose Blood)Indication s:Gestational [...] Recommend nutrition consult with RDN (Registered Dietitian Bad Cloth Checker). Lifestyle changes are also indicated including optimizing [...] mRNA, LNP-s, No Pre serve, 2-Dose Series ([employer]) 06/24/2020,06/03/2020 Covid-19, Mrna, Lnp-s, Pf, B ivalent, 10 Mcg, IM, 5-11 yrs (Pfizer) 12/29/2022,2021 Covid-19, Mrna, Lnp-s, Pf, B ivalent, 30 Mcg, IM, 12 yrs and above (Zingku) 03/08/2021 HEPATITIS B VACCINE, RECOMB, 20 MCG/ML, [...] money to get more. Never true 07/22/2023 [place] Depression Scale Answer Date Recorded [place] Depression Scale Total 10 11/18/2023 The thought [...] 11:45 AM EST Please use updated order [id number] / DELBERT Please expedite if insurance allows due to current (30 week gestation) * Telephone Encounter - Gladys Black OSA - 04/11/2024 11:06 AM EST HST [facility] BCBS OOS 3/TO 4 WEEKS documented in this encounter Plan of Treatment Upcoming Encounters Date Type Department Care Team (Late st Contact Info) Description 04/13/2024 3:30 PM EST Therapy Psychology [facility] [address] [place] [address] Lizbeth Dean LCSW [address] [place] [address] 04/14/2024 7:45 AM EST Office Visit [facility] Carmenza Ruiz [address] [place] [address] [address] [place] [address] Jake Muñoz MD [address] [place] [address] 04/14/2024 7:45 AM EST Imaging Maternal Medicine [facility] Carmenza Ruiz [address] [place] [address] [address] [place] [address] 04/24/2024 7:45 AM EST Office Visit Gynecology/Obstetrics [facility] [address] [place] [address] Kiya Dorsey PA-C [address] [place] [address] Health Maintenance Due Date Last Done Comments [...] documented as of this encounter Care Teams Supervisor Lamp Shades Relationship Specialty Start Date End Date Glen Swenson MD [address] [facility] [place] [address] PCP - General Family Medicine 04/11/24 documented as of this encounter
--- OUTSIDE RECORDS SUMMARY | 2024-06-02 16:59 | External Medical Summary | Summary of Care ---
Author Name Unknown Organization [facility] Address [address] [place] [address] Phone [phone] Care Team Providers Care Hog Trader Name Role Phone Glen Swenson MD Primary Care Provider Reason for Visit * Reason Comments Return Visit Encounter Details Date Type Department Care Team (Late st Contact Info) Description 04/24/2024 7:45 AM EST Office Visit Gynecology/Obstetric s [facility] [address] [place] [address] Kyia Dorsey PA-C [address] [place] [address] Supervision of high risk in third trimester*; Anxiety during ; Maternal asthma complicating ; Diet controlled gestational diabetes mellitus (GDM) in third trimester Allergies No known active allergiesdocumented as of this encounter (statuses as of 04/24/2024) Medications Complete Oral Capsule Therapy Pack Take [...] 4 times a day 1 Kit Active Lieferheld In Vitro Strip (Glucose Blood)Indication s:Gestational diabetes mellitus (GDM) in third trimester, gestational diabetes method of control unspecified Check blood sugar 4 times a day 100 Strip 6 5 Active documented as of this encounter (statuses as of 04/24/2024) Active Problems Problem Noted Date Diagnosed Date Supervision of high risk in third trim gary 04/04/2024 Diet controlled gestational diabetes mellitus (GDM) in third trimester 03/24/2024 Overview (04/18/2024): Diagnosed at 29 weeks Nutrition consult completed [...] overnight for no longer than 8-10 hours. 04/12/20249326-TZO-[id number] 04/18/24: RPM reviewed; overall stable; diet controlled Assessment & Plan (04/14/2024 8:31 [...] Recommend nutrition consult with RDN (Registered Dietitian Registered Public Health Nurse). Lifestyle changes are also indicated including optimizing [...] as of this encounter (statuses as of 04/24/2024) Resolved Problems Problem Noted Date Diagnosed Date Resolved Date with 29 completed weeks gestation 04/04/2024 04/07/2024 Depressive disorder 03/09/2016 07/22/19 24 documented as of this encounter (statuses as of 04/24/2024) Immunizations Name Administration Dates Next Due COVID-19 mRNA, LNP-s, No Pre serve, 2-Dose Series (VPEP) 06/24/2020,06/03/2020 Covid-19, Mrna, Lnp-s, Pf, B ivalent, [...] money to get more. Never true 07/22/2023 [place] Depression Scale Answer Date Recorded [place] Depression Scale Total 10 11/18/2023 The thought [...] No 07/22/2023 Does the household have a [facility] source of income? (Household - for ages [...] Sign Reading Time Taken Comments Blood Pressure 100/60 04/24/2024 7:43 AM EST Pulse - - Temperature - - Respiratory Rate - - Oxygen Saturation - - Inhaled Oxygen Concentration - - Weight 61.2 kg (135 lb) 04/24/2024 7:43 AM EST Height - - Body Mass Index 25.33 03/31/2024 1:24 PM EST documented in this encounter Progress Notes * Kiya Dorsey PA-C - 04/24/2024 7:53 AM EST 32w4d No complaints. Has been reporting BG to MFM as recommended. Remains diet controlled. Denies VB, Lof, contractions. Pos fm. RTC in 2 weeks Kiya Dorsey PA-C documented in this encounter Plan of Treatment Upcoming Encounters Date Type Department Care Team (Late st Contact Info) Description 05/05/2024 9:30 AM EST Therapy Psychology [facility] [address] [place] [address] Lizbeth Dean LCSW [address] [place] [address] 05/12/2024 7:45 AM EDT Office Visit Gynecology/Obstetrics [facility] [address] [place] [address] Kiya Dorsey PA-C [address] [place] [address] 05/22/2024 8:30 AM EDT Office Visit Gynecology/Obstetrics [facility] [address] [place] [address] Magige Monique CRNP [address] [place] [address] 05/29/2024 8:00 AM EDT Office Visit Gynecology/Obstetrics [facility] [address] [place] [address] Shakila Thurston CRNP [address] [place] [address] 06/05/2024 8:30 AM EDT Office Visit Gynecology/Obstetrics [facility] [address] [place] [address] Maggie Monique CRNP [address] [place] [address] 06/12/2024 9:30 AM EDT Office Visit Gynecology/Obstetrics [facility] [address] [place] [address] Melina Patel PA-C [address] [place] [address] Health Maintenance Due Date Last Done Comments [...] Author Reminders Care Plan OB Reminders No Bhargav, Provider documented as of this encounter Medical [...] documented as of this encounter Care Teams Hog Trader Relationship Specialty Start Date End Date Glen Swenson MD [address] [place] [address] PCP - General Family Medicine 04/11/24 documented as of this encounter
--- OUTSIDE RECORDS SUMMARY | 2024-06-02 16:59 | External Medical Summary | Summary of Care ---
Author Name Unknown Organization [facility] Address [address] [place] [address] Phone [phone] Care Team Providers Care Municipal Bond Trader Name Role Phone Glen Swenson MD Primary Care Provider Reason for Visit * Reason Comments Sleep Problems * Precert (Within 10 days (routine)) - Authorized Specialty Diagnoses / Procedures Referred By Contac t Referred To Contact Sleep Disorders Diagnoses Loud snoring Sleep apnea, unspecified type Frequent nocturnal awakening Procedures TIMED SLEEP STUDY, UNATTEND, HR/O2 SAT/RESP Katrina Gold CRNP [address] [facility] [place] [address] Phone: tel: fax: Referral ID Status Reason Start Date Expiration Date V isits Requested Visits Authorized [id number] Authorized Precert 04/18/2024 07/16/2024 [id number] Encounter Details Date Type Department Care Team (Late st Contact Info) Description 04/21/2024 10:00 AM EST PulmDiagnostic Sleep Lab Keisha Garay 132 [facility] [place] [address] [place], Sleep Med Home Study [facility] [address] [facility] [place] [address] Hypersomnolence* Allergies No known active allergiesdocumented as of this encounter (statuses as of 04/26/2024) Medications Complete Oral Capsule Therapy Pack Take by mouth. Activ e Breast PumpIndications: Breast feeding status of mother RAJWINDER 4/17/25, double electric pump, Z39.1 1 Each 4 Active Additional Information Patient not taking.Reported on 04/04/2024 [employer] Lancets 30GIndications:G estational diabetes mellitus (GDM) in third trimester, gestational diabetes method of control unspecified Check blood sugar 4 times a day 100 Each 6 5 Active Native w/Device KitIndications:G estational diabetes mellitus (GDM) in third trimester, gestational diabetes method of control unspecified Use as directed. Check blood sugar 4 times a day 1 Kit 5 Active Native In Vitro Strip (Glucose Blood)Indication s:Gestational diabetes mellitus (GDM) in third trimester, gestational diabetes method of control unspecified Check blood sugar 4 times a day 100 Strip 6 5 Active documented as of this encounter (statuses as of 04/26/2024) Active Problems Problem Noted Date Diagnosed Date [...] overnight for no longer than 8-10 hours. 04/12/20241031-PXD-aeiptz 04/18/24: RPM reviewed; overall stable; diet controlled [...] Recommend nutrition consult with RDN (Registered Dietitian Animal Laboratory Technician). Lifestyle changes are also indicated including optimizing [...] as of this encounter (statuses as of 04/26/2024) Resolved Problems Problem Noted Date Diagnosed Date Resolved Date with 29 completed weeks gestation 04/04/2024 04/07/2024 Depressive disorder 03/09/2016 07/22/19 24 documented as of this encounter (statuses as of 04/26/2024) Immunizations Name Administration Dates Next Due COVID-19 mRNA, LNP-s, No Pre serve, 2-Dose Series ([employer]) 06/24/2020,06/03/2020 Covid-19, Mrna, Lnp-s, Pf, B ivalent, [...] money to get more. Never true 07/22/2023 [place] Depression Scale Answer Date Recorded [place] Depression Scale Total 10 11/18/2023 The thought [...] as of this encounter Progress Notes * Lesa Jha MD - 04/26/2024 12:10 PM EST Images from the original note were not included. documented in this encounter Plan of Treatment Upcoming Encounters Date Type Department Care Team (Late st Contact Info) Description 05/05/2024 9:30 AM EST Therapy Psychology [facility] [address] [place] [address] Lizbeth Dean LCSW [address] [place] [address] 05/12/2024 7:45 AM EDT Office Visit Gynecology/Obstetrics [facility] [address] [place] [address] Kiya Dorsey PA-C [address] [place] [address] 05/22/2024 8:30 AM EDT Office Visit Gynecology/Obst[facility]s [facility] [address] [place] [address] Maggie Monique CRNP [address] [place] [address] 05/29/2024 8:00 AM EDT Office Visit Gynecology/Obst[facility]s [facility] [address] [place] [address] Shakila Thurston CRNP [address] [place] [address] 06/05/2024 8:30 AM EDT Office Visit Gynecology/Obst[facility]s [facility] [address] [place] [address] Maggie Monique CRNP [address] [place] [address] 06/12/2024 9:30 AM EDT Office Visit Gynecology/Obstetrics [facility] [address] [place] [address] Melina Patel PA-C [address] [place] [address] Scheduled Orders Name Type Priority Associated Diagnoses [...] diabetes mellitus (GDM) in third trimester- Primary Hypersomnolence- Primary Hypersomnia, unspecified documented in this encounter Additional Health Concerns Active Problems Noted Date Diagnosed Date OB Reminders 03/12/2024 documented as of this encounter Care Teams Municipal Bond Trader Relationship Specialty Start Date End Date Glen Swenson MD [address] [facility] [place] [address] PCP - General Family Medicine 04/11/24 documented as of this encounter
--- OUTSIDE RECORDS SUMMARY | 2024-06-02 16:59 | External Medical Summary | Summary of Care ---
Author Name Unknown Organization [facility] Address [address] [place] [address] Phone [phone] Care Team Providers Care Oven Press Tender Name Role Phone Glen Swenson MD Primary Care Provider Reason for Visit * Reason Onset Date Comments Encounter Created in Error 04/13/2024 Encounter Details Date Type Department Care Team (Late st Contact Info) Description 04/13/2024 Telephone Psychology [facility] [address] [place] [address] Lizbeth Dean, [facility] [address] [place] [address] Encounter Created in Error Allergies No known active allergiesdocumented as of [...] times a day 1 Kit 5 Active [employer]oke In Vitro Strip (Glucose Blood)Indication s:Gestational diabetes [...] overnight for no longer than 8-10 hours. 04/12/20243427-RCI-fsflan Assessment & Plan (04/14/2024 8:31 AM EST): [...] Recommend nutrition consult with RDN (Registered Dietitian Spice Miller). Lifestyle changes are also indicated including optimizing [...] money to get more. Never true 07/22/2023 [place] Depression Scale Answer Date Recorded [place] Depression Scale Total 10 11/18/2023 The thought [...] No 07/22/2023 Does the household have a [facility] source of income? (Household - for ages [...] encounter Miscellaneous Notes * Telephone Encounter - Lizbeth Dean LCSW - 04/14/2024 4:23 PM EST error documented in this encounter Plan of Treatment Upcoming Encounters Date Type Department Care Team (Late st Contact Info) Description 04/24/2024 7:45 AM EST Office Visit Gynecology/Obstetrics [facility] [address] [place] [address] Kiya Dorsey PA-C [address] [place] [address] 05/05/2024 9:30 AM EST Therapy Psychology [facility] [address] [place] [address] Lizbeth Dean LCSW [address] [place] [address] Health Maintenance Due Date Last Done Comments [...] documented as of this encounter Care Teams Oven Press Tender Relationship Specialty Start Date End Date Glen Swenson MD [address] [facility] [place] [address] PCP - General Family Medicine 04/11/24 documented as of this encounter
--- OUTSIDE RECORDS SUMMARY | 2024-06-02 17:00 | External Medical Summary | Summary of Care ---
Author Name Unknown Organization [facility] Address [address] [place] [address] Phone [phone] Care Team Providers Care Metal Baler Name Role Phone Glen Swenson MD Primary Care Provider Reason for Visit * Reason Onset Date Comments Other 03/22/2024 Test Results 03/24/2024 Abnormal Results Encounter Details Date Type Department Care Team (Late st Contact Info) Description 03/22/2024 Telephone Gynecology/Obstetrics [facility] [address] [place] [address] Services, Scheduling [address] [place] [address] Other; Test Results (Abnormal Results) Allergies No known active allergiesdocumented as of this encounter (statuses as of 03/24/2024) Medications Complete Oral Capsule Therapy Pack Take by mouth. Active Breast PumpIndications: Breast feeding status of mother RAJWINDER 06/15/24, double electric pump, Z39.1 1 Each 4 Active OneTouch [employer] Lancets 30GIndications:G estational diabetes mellitus [...] as of this encounter (statuses as of 03/24/2024) Active Problems Problem Noted Date Diagnosed Date Gestational diabetes mellitus (GDM) in third tri mester 03/24/2024 Normal 01/21/2024 Anxiety during 01/21/2024 Maternal asthma complicating Estimated Date of Delivery Comme nts Yes 06/15/2024 Based on Ultraso und documented as of this encounter (statuses as of 03/24/2024) Resolved Problems Problem Noted Date Diagnosed Date Resolved Date Depressive disorder 03/09/2016 07/22/19 24 documented as of this encounter (statuses as of 03/24/2024) Immunizations Name Administration Dates Next Due COVID-19 mRNA, LNP-s, No Pre serve, 2-Dose Series ([employer]) 06/24/2020,06/03/2020 Covid-19, Mrna, Lnp-s, Pf, B ivalent, [...] money to get more. Never true 07/22/2023 [place] Depression Scale Answer Date Recorded [place] Depression Scale Total 10 11/18/2023 The thought [...] ages 0-17 years) Not on file 07/22/2023 Estimated Date of Delivery Comme nts Yes 06/15/2024 Based on Ultraso und Sex and Gender Information Value Date Recorded Sex Assigned at Female 07/22/2023 7:19 AM EDT Legal Sex Female 10:21 AM EDT Gender Identity Female 07/22/2023 7:19 AM EDT Sexual Orientation Straight 07/22/2023 7: 19 AM EDT documented as of this encounter Miscellaneous Notes * Addendum Note - Frederic Reynolds CRNP - 03/24/2024 3:55 PM EST Addended by: FREDERIC REYNOLDS on: 03/24/2024 03:55 PM Modules accepted: Orders * Telephone Encounter - Frederic Reynolds CRNP - 03/24/2024 3:54 PM EST Supplies sent, please review frequency of testing and goal glucose levels w/pt. Advise pt to recordreadings to bring to appts. Will forward to [facility] for MFM and community educator referrals. LIANNE Ibrahim * Telephone Encounter - Thelma Collazo RN - 03/24/2024 3:44 PM EST Patient calling back in asking about test results of 3 hours glucose and asking if someone can sendher testing supplies for the weekend if she needs it. Kiya is not in office to review, please advise if able. Pharmacy updated. * Telephone Encounter - Thelma Collazo RN - 03/24/2024 10:40 AM EST Please review test results and advise. * Telephone Encounter - Amelia Henriquez OSA - 03/24/2024 10:34 AM EST Who is Requesting Test Results: Malou Duong (patient) Primary Care Provider : Glen Swenson MD Tests Results Requested : 3 hours Glucose Date of Test : 03/23/2024 Location of Test: [facility] Ordering Provider: Kiya Dorsey PA-C Saw results on [employer] Patient has been made aware that the turnaround time for test results are typically as follows: Laboratory results = within 2-3 days ([facility]), 3-5 days ([facility], ie[facility]) Urine Cultures = within 2-3 days depending on growth within the culture Pathology results (biopsy results/PAP) = 1-2 weeks Radiology results = about 1 week Cologuard results = within 2 weeks from the shipment date COVID testing = about 24 hours * Telephone Encounter - Thelma Collazo RN - 03/22/2024 11:49 AM EST Patient called and made aware of below. Patient verbalized understanding. Will schedule lab appt onportal. All instructions given and she verbalized understanding. * Telephone Encounter - Kiya Dorsey PA-C - 03/22/2024 11:38 AM EST Her 1 hour gtt resulted high at 180. Needs 3 hour gtt. Please let patient know and give instructions. Will need to fast ahead of this next testing, stay at facility during lab. Would recommend snack to have on hand after testing done. Remainder of labs normal for this stage in . Not anemic. Kiya Dorsey PA-C * Telephone Encounter - Abbey Rojas OSA - 03/22/2024 8:35 AM EST Pt called stating she is supposed to get a 3 hour glucose test however there are no orders for it. Pt is asking for a call back. Please contact patient at [phone] Thank you, Abbey Rojas [facility] Counselor [facility] Scheduling documented in this encounter Plan of Treatment Upcoming Encounters Date Type Department Care Team (Late st Contact Info) Description 04/07/2024 8:30 AM EST Office Visit Gynecology/Obstetrics [facility] [address] [place] [address] Frederic Reynolds CRNP [address] [place] [address] 04/13/2024 3:30 PM EST Therapy Psychology [facility] [address] [place] [address] Lizbeth Dean LCSW [address] [place] [address] Health Maintenance Due Date Last Done Comments [...] as of this encounter Visit Diagnoses Diagnosis Abnormal glucose tolerance in mother complicating - Primary Abnormal maternal glucose tolerance, complicating , childbirth, or the puerperium, unspecified as to episode of care Gestational diabetes mellitus (GDM) in third trimester, gestational diabetes method of control unspecified documented in this encounter Additional Health Concerns Active Problems Noted Date Diagnosed Date OB Reminders 03/12/2024 documented as of this encounter Care Teams Metal Baler Relationship Specialty Start Date End Date Glen Swenson MD [address] [place] [address] PCP - General Family Medicine 07/22/23 documented as of this encounter
--- OUTSIDE RECORDS SUMMARY | 2024-06-02 17:00 | External Medical Summary ---
Author Name Unknown Address Unknown Organization [facility] [address] [place] [address] Laboratory Report Ordering Provider Test Date Status KAROL CHAO 03/23/2024 08:55:24 Final Observation Date Value Abnormality Reference (Units ) Status Glucose [Mass/volume] in Serum or Plasma --1 hour post dose glucose 03/23/2024 08:55:24 157 70-179 (mg/dL) Final Performing Location [facility] [address] [place] [address]
--- OUTSIDE RECORDS SUMMARY | 2024-06-02 17:00 | External Medical Summary | Summary of Care ---
Author Name Unknown Organization [facility] Address [address] [place] [address] Phone [phone] Care Team Providers Care Certified Alcohol Drug Counselor Name Role Phone Glen Swenson MD Primary Care Provider Reason for Visit * Reason Onset Date Comments Other 03/22/2024 Test Results 03/24/2024 Abnormal Results Encounter Details Date Type Department Care Team (Late st Contact Info) Description 03/22/2024 Telephone Gynecology/Obstetrics [facility] [address] [place] [address] Services, Scheduling [address] [place] [address] Other; Test Results (Abnormal Results) Allergies No [...] mRNA, LNP-s, No Pre serve, 2-Dose Series ([employer]) 06/24/2020,06/03/2020 Covid-19, Mrna, Lnp-s, Pf, B ivalent, [...] money to get more. Never true 07/22/2023 [place] Depression Scale Answer Date Recorded [place] Depression Scale Total 10 11/18/2023 The thought [...] encounter Miscellaneous Notes * Telephone Encounter - Thelma Collazo RN - 03/24/2024 3:59 PM EST Patient called and made aware testing supplies sent. Goal glucose numbers given. Advised will let her know once other referrals placed. * Addendum Note - Frederic Reynolds CRNP - 03/24/2024 3:55 PM EST Addended by: FREDERIC REYNOLDS on: 03/24/2024 03:55 PM Modules accepted: Orders * Telephone Encounter - Frederic Reynolds CRNP - 03/24/2024 3:54 PM EST Supplies sent, please review frequency of testing and goal glucose levels w/pt. Advise pt to recordreadings to bring to appts. Will forward to Kiya for MFM and clinical unit educator referrals. LIANNE Ibrahim * Telephone Encounter [...] of Test : 03/23/2024 Location of Test: [facility] Ordering Provider: Kiya Dorsey PA-C Saw results on [employer] Patient has been made aware that the [...] a call back. Please contact patient at [phone] Thank you, Abbey Rojas Electronic Warfare Officer [facility] Scheduling documented in this encounter Plan of Treatment Upcoming Encounters Date Type Department Care Team (Late st Contact Info) Description 04/07/2024 8:30 AM EST Office Visit Gynecology/Obstetrics [facility] [address] [place] [address] Backer, LIANNE Guzmán [address] [place] [address] 04/13/2024 3:30 PM EST Therapy Psychology [facility] [address] [place] [address] Lizbeth Dean, CEMETERY LABORER [address] [place] [address] Health Maintenance Due Date Last Done Comments [...] documented as of this encounter Care Teams Certified Alcohol Drug Counselor Relationship Specialty Start Date End Date Glen Swenson MD [address] [place] [address] PCP - General Family Medicine 07/22/23 documented as of this encounter
--- OUTSIDE RECORDS SUMMARY | 2024-06-02 17:00 | External Medical Summary ---
Author Name Unknown Address Unknown Organization K0G:[facility] [address] [place] [address] Laboratory Report Ordering Provider Test Date Status KAROL CHAO 03/23/2024 10:44:25 Final Observation Date Value Abnormality Reference (Units ) Status Glucose [Mass/volume] in Serum or Plasma --3 hours post dose glucose 03/23/2024 10:44:25 156 Above high normal 70-139 (mg/dL) Final Performing Location [facility] [address] [place] [address]
--- OUTSIDE RECORDS SUMMARY | 2024-06-02 17:00 | External Medical Summary | Summary of Care ---
Author Name Unknown Organization [facility] Address [address] [place] [address] Phone [phone] Care Team Providers Care Director Product Development Name Role Phone Glen Swenson MD Primary Care Provider Reason for Visit * Reason Onset Date Comments Other 03/22/2024 Test Results 03/24/2024 Abnormal Results Encounter Details Date Type Department Care Team (Late st Contact Info) Description 03/22/2024 Telephone Gynecology/Obstetrics [facility] [address] [place] [address] Services, Scheduling [address] [place] [address] Other; Test Results (Abnormal Results) Allergies No known active allergiesdocumented as of this encounter (statuses as of 03/24/2024) Medications Complete Oral Capsule Therapy Pack Take by mouth. Active Breast PumpIndications :Breast feeding status of mother RAJWINDER 06/15/24, double electric pump, Z39.1 1 Each 01/21/2024 Active documented as of this encounter (statuses as of 03/24/2024) Active Problems Problem Noted Date Diagnosed Date Normal 01/21/2024 Anxiety during 01/21/2024 Maternal asthma [...] mRNA, LNP-s, No Pre serve, 2-Dose Series ([employer]) 06/24/2020,06/03/2020 Covid-19, Mrna, Lnp-s, Pf, B ivalent, [...] money to get more. Never true 07/22/2023 [place] Depression Scale Answer Date Recorded [place] Depression Scale Total 10 11/18/2023 The thought [...] No 07/22/2023 Does the household have a [facility] source of income? (Household - for ages [...] encounter Miscellaneous Notes * Telephone Encounter - Amelia Henriquez, TED - 03/24/2024 10:34 AM EST Who is Requesting Test Results: Malou Duong (patient) Primary Care Provider : Glen Swenson MD Tests Results Requested : 3 hours Glucose Date of Test : 03/23/2024 Location of Test: [facility] Ordering Provider: Kiya Dorsey PAEttaC Saw results on MyChart Patient has been made aware that the [...] a call back. Please contact patient at [phone] Thank you, Abbey Rojas Nurse Orthopaedic II Women's Health Scheduling documented in this encounter Plan of Treatment Upcoming Encounters Date Type Department Care Team (Late st Contact Info) Description 04/07/2024 8:30 AM EST Office Visit Gynecology/Obstetrics [facility] [address] [place] [address] Maggie Monique CRNP [address] [place] [address] 04/13/2024 3:30 PM EST Therapy Psychology [facility] [address] [place] [address] Lizbeth Dean LCSW [address] [place] [address] Health Maintenance Due Date Last Done Comments [...] puerperium, unspecified as to episode of care documented in this encounter Additional Health Concerns Active Problems Noted Date Diagnosed Date OB Reminders 03/12/2024 documented as of this encounter Care Teams Director Product Development Relationship Specialty Start Date End Date Glen Swenson MD [address] [facility] [place] [address] PCP - General Family Medicine 07/22/23 documented as of this encounter
--- OUTSIDE RECORDS SUMMARY | 2024-06-02 17:00 | External Medical Summary ---
Author Name Unknown Address Unknown Organization [facility] [address] [place] [address] Laboratory Report Ordering Provider Test Date Status KAROL CHAO 03/23/2024 07:41:40 Final Based on ACOG guideline, ges tational diabetes mellitus is diagnosed when any of the following is met:
Fasting is greater than or equal to 95 mg/dL
1 hour is greater than or equal to 180 mg/dL
2 hour is greater than or equal to 155 mg/dL
3 hour is greater than or equal to 140 mg/dL Observation Date Value Abnormality Reference (Units ) Status Glucose, fasting 03/23/2024 07:41:40 89 70- 94 (mg/dL) Final Performing Location [facility] [address] [place] [address]
--- OUTSIDE RECORDS SUMMARY | 2024-06-02 17:00 | External Medical Summary | Summary of Care ---
Author Name Unknown Organization [facility] Address [address] [place] [address] Phone [phone] Care Team Providers Care Cooler Man Name Role Phone Unavailable Primary Care Provider Unavailabl e Reason for Referral * Evaluate & Treat - Unlimited Visits (Within 3 days (urgent)) - Pending Review Specialty Diagnoses / Procedures Referred By Dwayne jones Referred To Contact Online Marketing Coordinator Diagnoses Diet controlled gestational diabetes mellitus (GDM) in third trimester Judie De La Fuente CRNP [address] [place] [address] Phone: tel: fax: Referral ID Status Reason Start Date Expiration Date Visits Requested Visits Authorized [id number] Pending Review Specialty Services Required 04/04/2024 1 1 Question Answer Referral Priority Within 3 days (urgent) Where should this appointment be scheduled? [facility] Program Type Chronic Disease Management Chronic Disease Management Diabetes in Alarm Settings Standard per protocol Comments One Touch Reason for Visit * Reason Comments Consultation Gestational diabetes * Evaluate & Treat - Unlimited Visits (Within 10 days (routine)) - Pending Review Specialty Diagnoses / Procedures Referred By Dwayne jones Referred To Contact Obstetrics/Gynecology / Maternal Medicine Diagnoses Gestational diabetes mellitus (GDM) in third trimester, gestational diabetes method of control unspecified Kiya Dorsey PA-C [address] [place] [address] Phone: tel: fax: Referral ID Status Reason Start Date Expiration Date Visits Requested Visits Authorized [id number] Pending Review Specialty Services Required 03/27/[phone] Encounter Details Date Type Department Care Team (Late st Contact Info) Description 04/04/2024 1:20 PM EST Telemedicine Electrical Appliance Preparer Obstetrics Maternal Medicine, [place] [address] [place] [address] Judie De La Fuente CRNP [address] [place] [address] Diet controlled gestational diabetes mellitus (GDM) in third trimester*; Supervision of high risk in third trimester; with 29 completed weeks gestation Allergies No known active allergiesdocumented as of [...] Recommend nutrition consult with RDN (Registered Dietitian Blacksmith Assistant). Lifestyle changes are also indicated including optimizing [...] mRNA, LNP-s, No Pre serve, 2-Dose Series ([employer]) 06/24/2020,06/03/2020 Covid-19, Mrna, Lnp-s, Pf, B ivalent, [...] money to get more. Never true 07/22/2023 [place] Depression Scale Answer Date Recorded [place] Depression Scale Total 10 11/18/2023 The thought [...] as of this encounter Progress Notes * Judie De La Fuente CRNP - 04/04/2024 2:01 PM EST MATERNAL MEDICINE CONSULT Malou Hernandez 04/04/24 REFERRING PROVIDER: Kiya Dorsey PA-C Patient location: HOME. I was in a hospital or clinic location. After connecting through [employer],patient was verified with two unique identifiers. Patient (or authorized legal inside sales account representative) was then informed that this was a Telemedicine visit and being conducted confidentially over secure lines. Methods to assure confidentiality were taken. Patient acknowledged consent and understanding of pr ivacy and security of the Telemedicine visit. The patient agreed to participate. Malou Hernandez is a 33 year old with intrauterine at 29w5d (Estimated Date of Delivery: 06/15/24 by 8w5d ultrasound) who presents today for an MFM consult due to gestational diabetes. HPI/CURRENT : pre- BMI=normal (49.9 kg (110 lb); 5' 1.22"); FOB Malik; pregnancycomplicated by above. Genetic testing: Low Risk Cell Free DNA [id number] Problems (from 11/11/23 to present) Problem Noted Diagnosed Resolved Diet controlled gestational diabetes mellitus (GDM) in third trimester 03/24/2024 by Maggie Monique CRNP No Overview Addendum 04/04/2024 1:57 PM by Judie De La Fuente CRNP Diagnosed at 29 weeks Nutrition consult completed [...] 10:44 AM 100-G GESTATIONAL GLUCOSE, FASTING - JOEL Donaldson 03/23/2024 07:41 AM She reports her home [...] overnight for no longer than 8-10 hours. I have reviewed this patient's previous OB ultrasound reports, pertinent labwork and testing provided by her referring OB provider. Current Outpatient Medications Medication Sig Dispense Refill Breast Pump RAJWINDER 06/15/24, double electric pump, Z39.1 (Patient not taking: Reported on 04/04/2024) 1 Each 0 OneTouch Delica Lancets 30G Check blood sugar 4 times a day 100 Each 6 OneTouch Verio In Vitro Strip (Glucose Blood) Check blood sugar 4 times a day 100 Strip 6 OneTouch Verio w/Device Kit Use as directed. Check blood sugar 4 times a day 1 Kit 0 Complete Oral Capsule Therapy Pack Take by mouth. No current facility-administered medications for this visit. Review of patient's allergies indicates: No Known Allergies OB History Para Term AB Living 1 0 0 0 0 0 SAB IAB Ectopic Multiple Live Births 0 0 0 0 0 # Outcome Date GA Lbr Myron/2nd Weight Sex Type Anes PTL Lv 1 Current Obstetric Comments 2024 FOB #1: Malik, age 31, healthy, no previous children Past Medical History: Diagnosis Date Anxiety reconcilled from [facility] Asthma reconcilled from [facility] Depressive disorder 03/09/2016 GERD (gastroesophageal reflux disease) reconcilled from [facility] Gestational diabetes mellitus (GDM) in third trimester 03/24/2024 Past Surgical History: Procedure Laterality Date NV TONSILLECTOMY PRIMARY/SECONDARY AGE 12 OR MORE reconcilled from [facility] family [facility] Family History Problem Relation Name Age of Onset Arthritis Mother Cancer Father Diabetes Father Hypertension Father Mental Disorder Sister Alcohol and Other Disorders Associated Sister Multiple Sclerosis Sister Autism Sister Heart Disorder Grandmother (Maternal) Arthritis Grandmother (Paternal) Heart Disorder Grandmother (Paternal) Heart Disorder Grandfather (Paternal) Social History Tobacco Use Smoking status: Never Passive exposure: Never Smokeless tobacco: Never Substance Use Topics Alcohol use: Not Currently Alcohol/week: 1.0 standard drink of alcohol Types: 1 12 oz of beer per week Drug use: Never PHYSICAL EXAM: LMP 09/01/2023 (Approximate) General: Well appearing Psych: Alert to time, place, and person and Pleasant DISCUSSION/RECOMMENDATIONS: Problem List Items Addressed This Visit [id number] Diet controlled gestational diabetes mellitus (GDM) in third trimester CONSIDERATIONS: Reviewed etiology and risks associated with gestational diabetes mellitus (GDM), including risks topregnancy, fetus, and maternal progression to Type 2 DM. Instructed on proper use of glucometer; supplies ordered, if indicated. Advised that life-long screening for diabetes is recommended every 1-3 years. RECOMMENDATIONS: Recommend monitoring blood sugars with daily fasting blood sugar (maintained at less than 95) and 1hour postprandial measurements (maintained at less than 140). Medications should be adjusted to maintain these target values. Report levels to MFM (Maternal- Medicine) weekly. Recommend nutrition consult with RDN (Registered Dietitian Blacksmith Assistant). Lifestyle changes are also indicated including optimizing gestational weight gain and physical activity of 30 minutes per day, if not otherwise contraindicated in . Insulin is preferred if medications are indicated to optimize euglycemia. Metformin (preferred overglyburide) may also be used in some circumstances. [...] admission (or 6-8 weeks if not completed). Relevant Orders REMOTE PATIENT MONITORING REFERRAL Follow up ultrasound with Maternal Medicine is scheduled on 04/14/[address] Muñoz for anatomy scan secondary to gestational diabetes. Patient is aware of upcoming MFM appointment. LIANNE Hernandez 04/04/2024 2:04 PM documented in this encounter Miscellaneous Notes * Assessment & Plan Note - Judie De La Fuente CRNP - 04/04/2024 1:58 PM EST Associated Problem(s): Diet controlled gestational diabetes mellitus (GDM) in third trimester CONSIDERATIONS: Reviewed etiology and risks associated with gestational diabetes mellitus (GDM), including risks topregnancy, fetus, and maternal progression to Type 2 DM. Instructed on proper use of glucometer; supplies ordered, if indicated. Advised that life-long screening for diabetes is recommended every 1-3 years. RECOMMENDATIONS: Recommend monitoring blood sugars with daily fasting blood sugar (maintained at less than 95) and 1hour postprandial measurements (maintained at less than 140). Medications should be adjusted to maintain these target values. Report levels to MFM (Maternal- Medicine) weekly. Recommend nutrition consult with RDN (Registered Dietitian Blacksmith Assistant). Lifestyle changes are also indicated including optimizing gestational weight gain and physical activity of 30 minutes per day, if not otherwise contraindicated in . Insulin is preferred if medications are indicated to optimize euglycemia. Metformin (preferred overglyburide) may also be used in some circumstances. [...] admission (or 6-8 weeks if not completed). documented in this encounter Plan of Treatment Upcoming Encounters Date Type Department Care Team (Late st Contact Info) Description 04/07/2024 8:30 AM EST Office Visit Gynecology/Obstetrics [address] [place] [address] Maggie Monique CRNP [address] [place] [address] 04/13/2024 3:30 PM EST Therapy Psychology [facility] [address] [place] [address] Lizbeth Dean LCSW [address] [place] [address] 04/14/2024 7:45 AM EST Office Visit Electrical Appliance Preparer OB Maternal Medicine [facility] Carmenza Ruiz [address] [place] [address] [address] [facility] [address] Jake Muñoz MD [address] [place] [address] 04/14/2024 7:45 AM EST Imaging [facility] Carmenza Ruiz [address] [place] [address] [address] [place] [address] Scheduled Referrals Name Type Priority Associated Diagnoses Orde r Schedule REMOTE PATIENT MONITORING REFERRAL Referral Within 3 days (urgent) Diet controlled gestational diabetes mellitus (GDM) in third trimester Ordered: 04/04/2024 Health Maintenance Due Date Last Done Comments [...] Unspecified high-risk with 29 completed weeks gestation documented in this encounter Additional Health Concerns Active Problems Noted Date Diagnosed Date OB Reminders 03/12/2024 documented as of this encounter
--- OUTSIDE RECORDS SUMMARY | 2024-06-02 17:00 | External Medical Summary | Summary of Care ---
Author Name Unknown Organization [facility] Address [address] [place] [address] Phone [phone] Care Team Providers Care Advanced Practice Registered Nurse Name Role Phone Glen Swenson MD Primary Care Provider Reason for Visit * Reason Onset Date Comments Other 03/22/2024 Test Results 03/24/2024 Abnormal Results Encounter Details Date Type Department Care Team (Late st Contact Info) Description 03/22/2024 Telephone Gynecology/Obstetrics [facility] [address] [place] [address] Services, Scheduling [address] [place] [address] Other; Test Results (Abnormal Results) Allergies No [...] mRNA, LNP-s, No Pre serve, 2-Dose Series ([facility]) 06/24/2020,06/03/2020 Covid-19, Mrna, Lnp-s, Pf, B ivalent, [...] money to get more. Never true 07/22/2023 [place] Depression Scale Answer Date Recorded [place] Depression Scale Total 10 11/18/2023 The thought [...] No 07/22/2023 Does the household have a [facility] source of income? (Household - for ages [...] EST Who is Requesting Test Results: Malou Ritterbobby (patient) Primary Care Provider : Glen Swenson MD Tests Results Requested : 3 hours Glucose Date of Test : 03/23/2024 Location of Test: [facility] Ordering Provider: Kiya Dorsey PA-C Saw results on SideTourhart Patient has been made aware that the [...] a call back. Please contact patient at [phone] Thank you, Abbey Rojas Customs Manager II Women's Health Scheduling documented in this encounter Plan of Treatment Upcoming Encounters Date Type Department Care Team (Late st Contact Info) Description 04/07/2024 8:30 AM EST Office Visit Gynecology/Obstetrics [facility] [address] [place] [address] Maggie Monique CRNP [address] [place] [address] 04/13/2024 3:30 PM EST Therapy Psychology [facility] [address] [place] [address] Lizbeth Dean LCSW [address] [place] [address] Health Maintenance Due Date Last Done Comments [...] documented as of this encounter Care Teams Advanced Practice Registered Nurse Relationship Specialty Start Date End Date Glen Swenson MD [address] [place] [address] PCP - General Family Medicine 07/22/23 documented as of this encounter
--- OUTSIDE RECORDS SUMMARY | 2024-06-02 17:00 | External Medical Summary | Summary of Care ---
Author Name Unknown Organization [facility] Address [address] [place] [address] Phone [phone] Care Team Providers Care Receptionist Clerk Name Role Phone Glen Swenson MD Primary Care Provider Reason for Visit * Reason Onset Date Comments Other 03/22/2024 Test Results 03/24/2024 Abnormal Results Encounter Details Date Type Department Care Team (Late st Contact Info) Description 03/22/2024 Telephone Gynecology/Obstetrics [facility] [address] [place] [address] Services, Scheduling [address] [place] [address] Other; Test Results (Abnormal Results) Allergies No [...] mRNA, LNP-s, No Pre serve, 2-Dose Series ([employer] 06/24/2020,06/03/2020 Covid-19, Mrna, Lnp-s, Pf, B ivalent, [...] money to get more. Never true 07/22/2023 [place] Depression Scale Answer Date Recorded [place] Depression Scale Total 10 11/18/2023 The thought [...] No 07/22/2023 Does the household have a [place] source of income? (Household - for ages [...] of Test : 03/23/2024 Location of Test: [facility] Ordering Provider: Kiya Dorsey PA-C Saw results on MyChart Patient has been [...] a call back. Please contact patient at [phone] Thank you, Abbey Rojas Control Inspector II Women's Health Scheduling documented in this encounter Plan of Treatment Upcoming Encounters Date Type Department Care Team (Late st Contact Info) Description 04/07/2024 8:30 AM EST Office Visit Gynecology/Obstetrics [facility] [address] [place] [address] Maggie Monique CRNP [address] [place] [address] 04/13/2024 3:30 PM EST Therapy Psychology [facility] [address] [place] [address] Lizbeth Dean LCSW [address] [place] [address] Health Maintenance Due Date Last Done Comments [...] documented as of this encounter Care Teams Receptionist Clerk Relationship Specialty Start Date End Date Glen Swenson MD [address] [place] [address] PCP - General Family Medicine 07/22/23 documented as of this encounter
--- OUTSIDE RECORDS SUMMARY | 2024-06-02 17:00 | External Medical Summary ---
Author Name Unknown Address Unknown [facility] [address] [place] [address] Laboratory Report Ordering Provider Test Date Status KAROL CHAO 03/23/2024 09:48:37 Final Observation Date Value Abnormality Reference (Units ) Status Glucose, 2-hr post glucose challenge 03/23/2024 09:48:37 184 Above high normal 70-154 (mg/dL) Final Performing Location [facility] [address] [place] [address]
--- OUTSIDE RECORDS SUMMARY | 2024-06-02 17:00 | External Medical Summary | Summary of Care ---
Author Name Unknown Organization [facility] Address [address] [place] [address] Phone [phone] Care Team Providers Care Senior Care Manager Name Role Phone Glen Swenson MD Primary Care Provider Reason for Visit * Reason Comments Outpatient Testing Encounter Details Date Type Department Care Team (Late st Contact Info) Description 03/23/2024 7:40 AM EST Laboratory Laboratory, [facility] [address] [facility] [place] [id number] [facility] [address] [place] [address] Abnormal glucose tolerance in mother complicating Allergies No known active allergiesdocumented as of this encounter (statuses as of 03/23/2024) Medications Complete Oral Capsule Therapy Pack Take by mouth. Active Breast PumpIndications :Breast feeding status of mother RAJWINDER 06/15/24, double electric pump, Z39.1 1 Each 01/21/2024 Active documented as of this encounter (statuses as of 03/23/2024) Active Problems Problem Noted Date Diagnosed Date Normal 01/21/2024 Anxiety during 01/21/2024 Maternal asthma complicating Estimated Date of Delivery Comme nts Yes 06/15/2024 Based on Ultraso und documented as of this encounter (statuses as of 03/23/2024) Resolved Problems Problem Noted Date Diagnosed Date Resolved Date Depressive disorder 03/09/2016 07/22/19 24 documented as of this encounter (statuses as of 03/23/2024) Immunizations Name Administration Dates Next Due COVID-19 [...] money to get more. Never true 07/22/2023 [place] Depression Scale Answer Date Recorded [place] Depression Scale Total 10 11/18/2023 The thought [...] 04/07/2024 8:30 AM EST Office Visit Gynecology/Obstetrics [facility] [address] [place] [address] Maggie Monique CRNP [address] [place] [address] 04/13/2024 3:30 PM EST Therapy Psychology [facility] [address] [place] [address] Lizbeth Dean, [facility] [address] [place] [id number] Pending Results Name Type Priority Associated Diagnoses Date /Time GESTATIONAL GLUCOSE TOLERANCE, 3 HOUR Lab Routine Abnormal glucose tolerance in mother complicating 03/23/2024 7:41 AM EST 100-G GESTATIONAL GLUCOSE, 2 HOUR Lab Routine Abnormal glucose tolerance in mother complicating 03/23/2024 9:48 AM EST 100-G GESTATIONAL GLUCOSE, 3 HOUR Lab Routine Abnormal glucose tolerance in mother complicating 03/23/2024 10:44 AM EST Health Maintenance Due Date Last Done Comments [...] Not on filedocumented as of this encounter Procedures Procedure Name Priority Date/Time Associated Diagnosis Comments 100-G GESTATIONAL GLUCOSE, 1 HOUR Routine 03/23/2024 8:55 AM EST Abnormal glucose tolerance in mother complicating 100-G GESTATIONAL GLUCOSE, FASTING Routine 03/23/2024 7:41 AM EST Abnormal glucose tolerance in mother complicating documented in this encounter Results * 100-G GESTATIONAL GLUCOSE, 1 HOUR (03/23/2024 8:55 AM EST) 100-g Gestational Glucose, 1 Hour 157 70 - 179 mg/dL 03/23/2024 10:06 AM EST [facility] [place] [facility] Blood Venous blood specimen / Unknown Venipuncture / Unknown 03/23/2024 8:55 AM EST 03/23/2024 8:55 AM EST us Kiya Dorsey PA-C LAB BLOOD ORDERABLES Final R esult [facility] [place] [facility] [place] [address] * 100-G GESTATIONAL GLUCOSE, FASTING (03/23/2024 7:41 AM EST) 100-g Gestational Glucose, Fasting 89 70 - 94 mg/dL 03/23/2024 10:06 AM EST [facility] [place] [facility] Blood Venous blood specimen / Unknown Venipuncture / Unknown 03/23/2024 7:41 AM EST 03/23/2024 7:41 AM EST Narrative [facility] [place] - 03/23/2024 10:06 AM EST Based on ACOG guideline, gestational diabetes mellitus is diagnosed when any of the following is met: Fasting is greater than or equal to 95 mg/dL 1 hour is greater than or equal to 180 mg/dL 2 hour is greater than or equal to 155 mg/dL 3 hour is greater than or equal to 140 mg/dL Kiya Dorsey PA-C LAB BLOOD ORDERABLES Final R esult [facility] [place] [facility] [address] documented in this encounter Visit Diagnoses Diagnosis Abnormal glucose tolerance in mother complicating Abnormal maternal glucose tolerance, complicating , childbirth, or the puerperium, unspecified as to episode of care documented in this encounter Additional Health Concerns Active Problems Noted Date Diagnosed Date OB Reminders 03/12/2024 documented as of this encounter Care Teams Senior Care Manager Relationship Specialty Start Date End Date Glen Swenson MD [address] [address] PCP - General Family Medicine 07/22/23 documented as of this encounter
--- OUTSIDE RECORDS SUMMARY | 2024-06-02 17:00 | External Medical Summary | Summary of Care ---
Author Name Unknown Organization [facility] Address [address] [place] [address] Phone [phone] Care Team Providers Care Centrifugal Extractor Operator Name Role Phone Glen Gray MD Primary Care Provider Reason for Referral * Evaluate & Treat - Unlimited Visits (Within 10 days (routine)) - Pending Review Specialty Diagnoses / Procedures Referred By Contluli t Referred To Contact Teenage Babysitter / Nutrition Services Diagnoses Gestational diabetes mellitus (GDM) in third trimester, gestational diabetes method of control unspecified Jeremie Dorsey PA-C [address] [place] [address] Phone: tel: fax: Referral ID Status Reason Start Date Expiration Date Visits Requested Visits Authorized [id number] Pending Review Specialty Services Required 03/27/[phone] Question Answer Is the patient ? Yes Referral Priority Within 10 days (routine) Where should this appointment be scheduled? Zo[facility] Comments This referral is for Diabetes Self-Management Training (DSMT) by a recognized [place] Diabetes Association (ADA) branch operations coordinator: Nurse (RN), Registered Dietitian Guard Manager (RDN), and/or Diabetes Medical Nutrition Therapy (MNT) Management (dietitian only). Diabetes educators are responsible for assessing the participant's diabetes education needs, and providing diabetes self-management training in accordance with the standards set by the ADA for DSMT. Any adjustment in diabetes therapy will be made within the guidelines of standards of practice and [facility] approved policies and procedures. I understand that the branch operations coordinator will keep me informed. Areas of Education: Pathophysiology Nutrition Physical Activity Medications Monitoring Acute Complications Chronic Complications Psychosocial Management Promote Health/Behavior Change Participant will be offered 1:1 education training if there is a lack of classes available within 2 months. Providers can also order 1:1 training if indicated for participant for the following reasons: 1:1 Training for Insulin Initiation Participant Inappropriate for Class Setting By my electronic signature, I understand that my patient will be offered the comprehensive ADA content area above unless deemed not appropriate of I specify otherwise here: * Evaluate & Treat - Unlimited Visits (Within 10 days (routine)) - Pending Review Specialty Diagnoses / Procedures Referred By Dwayne jones Referred To Contact Obstetrics/Gynecology / Maternal Medicine Diagnoses Gestational diabetes mellitus (GDM) in third trimester, gestational diabetes method of control unspecified Jeremie Dorsey PA-C [address] [place] [address] Phone: tel: fax: Referral ID Status Reason Start Date Expiration Date Visits Requested Visits Authorized [id number] Pending Review Specialty Services Required 03/27/[id number] Question Answer Referral Priority Within 10 days (routine) Has the patient had a viability scan? Yes Date performed 11/09/2023 Location performed Radiology Reason for referral Diabetes Diabetes type Gestational Where should this appointment be scheduled? [facility] Comments /Para: LMP: Patient's last menstrual period was 09/01/2023 (approximate). Patient is . RAJWINDER: 06/15/2024, by Ultrasound Pre-Gravid BMI: 20.64 Reason for Visit * Reason Onset Date Comments Other 03/22/2024 Test Results 03/24/2024 Abnormal Results Encounter Details Date Type Department Care Team (Late st Contact Info) Description 03/22/2024 Telephone Gynecology/Obstetrics [facility] [address] [place] [address] Services, Scheduling [address] [place] [facility] [place] [address] Other; Test Results (Abnormal Results) Allergies No known active allergiesdocumented as of this encounter (statuses as of 03/27/2024) Medications Complete Oral Capsule Therapy Pack Take [...] times a day 1 Kit 5 Active Software [employer] Verio In Vitro Strip (Glucose Blood)Indication s:Gestational diabetes mellitus (GDM) in third trimester, gestational diabetes method of control unspecified Check blood sugar 4 times a day 100 Strip 6 5 Active documented as of this encounter (statuses as of 03/27/2024) Active Problems Problem Noted Date Diagnosed Date Gestational diabetes mellitus (GDM) in third tri [facility] 03/24/2024 Normal 01/21/2024 Anxiety during 01/21/2024 Maternal asthma complicating 4 Estimated Date of Delivery Comme nts Yes 06/15/2024 Based on Ultraso und documented as of this encounter (statuses as of 03/27/2024) Resolved Problems Problem Noted Date Diagnosed Date Resolved Date Depressive disorder 03/09/2016 07/22/19 24 documented as of this encounter (statuses as of 03/27/2024) Immunizations Name Administration Dates Next Due COVID-19 mRNA, LNP-s, No Pre serve, 2-Dose Series ([employer]) 06/24/2020,06/03/2020 Covid-19, Mrna, Lnp-s, Pf, B ivalent, 10 Mcg, IM, 5-11 yrs ([employer]) 12/29/2022,2021 Covid-19, Mrna, Lnp-s, Pf, B ivalent, [...] money to get more. Never true 07/22/2023 [place] Depression Scale Answer Date Recorded [place] Depression Scale Total 10 11/18/2023 The thought [...] encounter Miscellaneous Notes * Telephone Encounter - Jackelyn Whitten RN - 03/27/2024 9:41 AM EST MyG Sent to pt. * Addendum Note - Jeremie Dorsey PA-C - 03/27/2024 7:53 AM ESTAddended by: JEREMIE DORSEY on: 03/27/2024 07:53 AM Modules accepted: Orders * Telephone Encounter - Jeremie Dorsey PA-C - 03/27/2024 7:52 AM EST MFM and diabetes education referral placed. Please let her know that they should be reaching out to her to schedule in follow up. She should be testing her blood sugars 4 times a day (fasting, and 1 hour after breakfast, lunch and dinner). Recording those measures is helpful ahead of MFM visit if able. Jeremie Dorsey PA-C * Telephone Encounter - Thelma Collazo RN - 03/24/2024 3:59 PM EST Patient called and made aware testing supplies sent. Goal glucose numbers given. Advised will let her know once other referrals placed. * Addendum Note - Frederic Monique CRNP - 03/24/2024 3:55 PM EST Addended by: FREDERIC MONIQUE on: 03/24/2024 03:55 PM Modules accepted: Orders * Telephone Encounter - Frederic Monique CRNP - 03/24/2024 3:54 PM EST Supplies sent, please review frequency of testing and goal glucose levels w/pt. Advise pt to recordreadings to bring to appts. Will forward to Jeremie for MFM and help desk specialist referrals. LIANNE Ibrahim * Telephone Encounter - Thelma Collazo RN - 03/24/2024 3:44 PM EST Patient calling back in asking about test results of 3 hours glucose and asking if someone can sendher testing supplies for the weekend if she needs it. Jeremie is not in office to review, please advise if able. Pharmacy updated. * Telephone Encounter - Thelma Collazo RN - 03/24/2024 10:40 AM EST Please review test results and advise. * Telephone Encounter - Amelia Henriquez OSA - 03/24/2024 10:34 AM EST Who is Requesting Test Results: Malou Ritterbobby (patient) Primary Care Provider : Glen Gray MD Tests Results Requested : 3 hours Glucose Date of Test : 03/23/2024 Location of Test: [facility] Ordering Provider: Jeremie Dorsey PA-C Saw results on [employer] Patient has been made aware that the [...] she verbalized understanding. * Telephone Encounter - Jeremie Dorsey PA-C - 03/22/2024 11:38 AM EST Her 1 hour gtt resulted high at 180. Needs 3 hour gtt. Please let patient know and give instructions. Will need to fast ahead of this next testing, stay at facility during lab. Would recommend snack to have on hand after testing done. Remainder of labs normal for this stage in . Not anemic. Jeremie Dorsey PA-C * Telephone Encounter - Abbey Rojas OSA - 03/22/2024 8:35 AM EST Pt called stating she is supposed to get a 3 hour glucose test however there are no orders for it. Pt is asking for a call back. Please contact patient at [phone] Thank you, Abbey Rojas Customer Contact Representative II Women's Health Scheduling documented in this encounter Plan of Treatment Upcoming Encounters Date Type Department Care Team (Late st Contact Info) Description 04/07/2024 8:30 AM EST Office Visit Gynecology/Obstetrics [facility] [address] [address] Frederic Monique CRNP [address] [place] [address] 04/13/2024 3:30 PM EST Therapy Psychology [facility] [address] [address] Lizbeth Dean LCSW [address] [place] [address] Scheduled Orders Name Type Priority Associated Diagnoses Orde r Schedule MFM US MATERNAL 1ST FETUS Medical Imaging Routine Gestational diabetes mellitus (GDM) in third trimester, gestational diabetes method of control unspecified Expected: 03/27/2024, Expires: 04/27/2025 Scheduled Referrals Name Type Priority Associated Diagnoses Orde r Schedule MATERNAL MEDICINE REFERRAL OP Referral Within 10 days (routine) Gestational diabetes mellitus (GDM) in third trimester, gestational diabetes method of control unspecified Ordered: 03/27/2024 DIABETES MANAGEMENT EDUCATION (ADA) REFERRAL Referral Within 10 days (routine) Gestational diabetes mellitus (GDM) in third trimester, gestational diabetes method of control unspecified Ordered: 03/27/2024 Health Maintenance Due Date Last Done Comments [...] documented as of this encounter Care Teams Centrifugal Extractor Operator Relationship Specialty Start Date End Date Glen Gray MD [address] [facility] [place] [address] PCP - General Family Medicine 07/22/23 documented as of this encounter
--- OUTSIDE RECORDS SUMMARY | 2024-06-02 17:00 | External Medical Summary | Summary of Care ---
Author Name Unknown Organization [facility] Address [address] [place] [address] Phone [phone] Care Team Providers Care Incubator Machine Operator Name Role Phone Glen Gray MD Primary Care Provider Reason for Referral * Evaluate & Treat - Unlimited Visits (Within 10 days (routine)) - Pending Review Specialty Diagnoses / Procedures Referred By Contluli t Referred To Contact Corporation Pilot / Nutrition Services Diagnoses Gestational diabetes mellitus (GDM) in third trimester, gestational diabetes method of control unspecified Jeremie Dorsey PA-C [address] [place] [address] Phone: tel: fax: Referral ID Status Reason Start Date Expiration Date Visits Requested Visits Authorized [id number] Pending Review Specialty Services Required 03/27/[phone] Question Answer Is the patient ? Yes Referral Priority Within 10 days (routine) Where should this appointment be scheduled? Zoë Comments This referral is for Diabetes Self-Management Training (DSMT) by a recognized [place] Diabetes Association (ADA) patient educator: Nurse (RN), Registered Dietitian [employer]ilermaker Loftsman (RDN), and/or Diabetes Medical Nutrition Therapy (MNT) Management (dietitian only). Diabetes educators are responsible for assessing the participant's diabetes education needs, and providing diabetes self-management training in accordance with the standards set by the ADA for DSMT. Any adjustment in diabetes therapy will be made within the guidelines of standards of practice and [facility] approved policies and procedures. I understand that the patient educator will keep me informed. Areas of Education: [...] method of control unspecified Jeremie Dorsey PA-C [address] [place] [address] Phone: tel: fax: Referral ID Status Reason Start Date Expiration Date Visits Requested Visits Authorized [id number] Pending Review Specialty Services Required 03/27/2024 999 [...] Contact Info) Description 03/22/2024 Telephone Gynecology/Obstetrics [facility] [address] [place] [address] Services, Scheduling [address] [place] [facility] [place] [address] Other; Test Results (Abnormal Results) Allergies No [...] times a day 1 Kit 5 Active [employer] Verio In Vitro Strip (Glucose Blood)Indication s:Gestational diabetes mellitus (GDM) in third trimester, gestational diabetes method of control unspecified Check blood sugar 4 times a day 100 Strip 6 5 Active documented as of this encounter (statuses as of 03/27/2024) Active Problems Problem Noted Date Diagnosed Date Gestational diabetes mellitus (GDM) in third tri [facility] 03/24/2024 Normal 01/21/2024 Anxiety during 01/21/2024 [...] mRNA, LNP-s, No Pre serve, 2-Dose Series ([employer]) 06/24/2020,06/03/2020 Covid-19, Mrna, Lnp-s, Pf, B ivalent, 10 Mcg, IM, 5-11 yrs ([employer]) 12/29/2022,2021 Covid-19, Mrna, Lnp-s, Pf, B ivalent, [...] money to get more. Never true 07/22/2023 [place] Depression Scale Answer Date Recorded [place] Depression Scale Total 10 11/18/2023 The thought [...] encounter Miscellaneous Notes * Addendum Note - Jeremie Dorsey PA-C [...] to bring to appts. Will forward to [facility] for MFM and staff educator referrals. LIANNE Ibrahim * Telephone Encounter [...] Duong (patient) Primary Care Provider : Glen Gray MD Tests Results Requested : 3 hours Glucose Date of Test : 03/23/2024 Location of Test: [facility] Ordering Provider: Jeremie Dorsey PA-C Saw results on [employer] Patient has been made aware that the [...] a call back. Please contact patient at [phone] Thank you, Abbey Rojas Policy Issue Clerk II Women's Health Scheduling documented in this encounter Plan of Treatment Upcoming Encounters Date Type Department Care Team (Late st Contact Info) Description 04/07/2024 8:30 AM EST Office Visit Gynecology/Obstetrics [facility] [address] [place] [address] Frederic Monique CRNP [address] [place] [address] 04/13/2024 3:30 PM EST Therapy Psychology [facility] [address] [place] [address] Lizbeth Dean LCSW [address] [place] [address] Scheduled Orders Name Type Priority Associated Diagnoses [...] documented as of this encounter Care Teams Incubator Machine Operator Relationship Specialty Start Date End Date Glen Gray MD [address] [place] [address] PCP - General Family Medicine 07/22/23 documented as of this encounter
--- OUTSIDE RECORDS SUMMARY | 2024-06-02 17:00 | External Medical Summary | Summary of Care ---
Author Name Unknown Organization [facility] Address [address] [place] [address] Phone [phone] Care Team Providers Care Wealth Management Consultant Name Role Phone Glen Swenson MD Primary Care Provider Reason for Visit * Reason Comments DSMT INITIAL * Evaluate & Treat - Unlimited Visits (Within 10 days (routine)) - Authorized Specialty Diagnoses / Procedures Referred By Contac t Referred To Contact Supervisor Instrument Repair / Nutrition Services Diagnoses Gestational diabetes mellitus (GDM) in third trimester, gestational diabetes method of control unspecified Kiya Dorsey PA-C [address] [place] [address] Phone: tel: fax: Referral ID Status Reason Start Date Expiration Date Visits Requested Visits Authorized [id number] Authorized Specialty Services Required 03/27/2024 03/28/[phone] Encounter Details Date Type Department Care Team (Latest Contact Info) Description 03/31/2024 1:00 PM [facility] [address] [place] [address] Catia Carver RDN [address] [place] [id number] Diet controlled gestational diabetes mellitus (GDM) in third trimester*; Gestational diabetes mellitus (GDM) in third trimester, gestational diabetes method of control unspecified [O24.419] Allergies No known active allergiesdocumented as of this encounter (statuses as of 03/31/2024) Medications Complete Oral Capsule Therapy Pack Take [...] as of this encounter (statuses as of 03/31/2024) Active Problems Problem Noted Date Diagnosed Date Gestational diabetes mellitus (GDM) in third tri mester 03/24/2024 Normal 01/21/2024 Anxiety during 01/21/2024 Maternal asthma complicating Estimated Date of Delivery Comme nts Yes 06/15/2024 Based on Ultraso und documented as of this encounter (statuses as of 03/31/2024) Resolved Problems Problem Noted Date Diagnosed Date Resolved Date Depressive disorder 03/09/2016 07/22/19 24 documented as of this encounter (statuses as of 03/31/2024) Immunizations Name Administration Dates Next Due COVID-19 mRNA, LNP-s, No Pre serve, 2-Dose Series ([employer]) 06/24/2020,06/03/2020 Covid-19, Mrna, Lnp-s, Pf, B ivalent, 10 Mcg, IM, 5-11 yrs (Pfizer) 12/29/2022,2021 Covid-19, Mrna, Lnp-s, Pf, B ivalent, 30 Mcg, IM, 12 yrs and above ([employer]) 03/08/2021 HEPATITIS B VACCINE, RECOMB, 20 MCG/ML, [...] money to get more. Never true 07/22/2023 Silvis Depression Scale Answer Date Recorded Silvis Depression Scale Total 10 11/18/2023 The thought [...] Sign Reading Time Taken Comments Blood Pressure - - Pulse - - Temperature - - Respiratory Rate - - Oxygen Saturation - - Inhaled Oxygen Concentration - - Weight 60.2 kg (132 lb 12.8 oz) 03/31/2024 1:24 PM EST Height 155.5 cm (5' 1.22") 03/31/2024 1:24 PM ES T Body Mass Index 24.91 03/31/2024 1:24 PM EST documented in this encounter Patient Instructions * Patient Instructions* Catia Carver RDN - 03/31/2024 2:02 PM EST Participant will aim for 2-3 servings of high-carb foods at meals (30-45 grams protein), and 1-2 servings of high-carb at snacks. (See handout or total grams of carb's from nutrition label.) documented in this encounter Progress Notes * Catia Carver RDN - 03/31/2024 1:07 PM EST DIABETES SELF-MANAGEMENT TRAINING/INITIAL NOTE Name: Malou Hernandez Date: 03/31/2024 Participant was seen face to face in the clinic. Last order of DIABETES MANAGEMENT EDUCATION (ADA) REFERRAL was found on 03/27/2024 from Telephone on03/22/2024 No order of CLINICAL NUTRITION AND DIABETES EDUCATION ANNUAL RENEWAL is found. No order of PEDIATRIC DIABETES MANAGEMENT EDUCATION (ADA) REFERRAL OP is found. ADA referral in place? Yes Participant scheduled for 1:1 training due to lack of classes scheduled within 2 months of appointment. What diabetes concerns and/or barriers to care would you like to discuss in your appointment: none.States she has an MFM appointment next week. States she has a scan scheduled on 04/14/24. In your words, what is diabetes? Placenta is overpowering the insulin in my body Do you know the risks of uncontrolled diabetes? some Do you believe that diabetes can be controlled? Yes Are you ready to make small changes to help with diabetes self-management: Yes What type of diabetes do you have? Gestational Diabetes Mellitus: Are you aware of the post- glucose screening recommendations? No Diabetes diagnosis year: 2023 Do you have a family history of diabetes? Yes Have you had any previous diabetes education? No Support systems: Spouse, parents, in-laws, siblings Barriers to care: None Special Needs: None Psychosocial Screening: Lately have you been feeling down, depressed or hopeless most of the day? No How Do You Manage Stress? Light weight lifting, walking Crocheting Food Insecurity: Within the past 12 months, I worried whether our food would run out before we got money to buy more. No Within the past 12 months, the food we bought just did not last and we did not have money to buy more. No Sleep Health: Addressed - How many hours are you sleeping during the night? 8 hours Do you have difficulty falling or staying asleep? Yes falling asleep and staying asleep. The latteris due to snoring issue. Do you snore? Yes Are you waking up during the night with symptoms of low glucose levels (shaky, sweaty, nightmares)?No Are you waking up during the night to urinate frequently? No Diabetes Medications: None Monitoring blood glucose, interpreting and using results Self-Monitoring Blood Glucose Source of Information: from johann Frequency of tests: 4 times daily Fasting lowest 75, usually mid-80's, 97 After breakfast 110-120 After lunch 105-156 After dinner ~120, lowest level 102 Hypoglycemia?: No Diet: Describes typical diet history/24-hour recall Breakfast: 7 AM eggs, 1/2 Cymraes muffin with egg, sausage, and cheese or avocado toast using low-carb bread or Serbian yogurt and eggs or cottage cheese, coffee with half & half Snacks: yogurt or cottage cheese or cheese wheel or almonds or meat stick or protein bar or Fairlife protein shake Lunch: low-carb wrap with beans and cheese or chicken quesadilla's or taco filling with pork and peppers and protein chips or meatless chicken tenders, raw carrots, seltzer or water or unsweetened almond milk Snacks: Fairlife protein shake or 1/2 shake with cheese Dinner: 6 PM same as lunch or Hello Fresh meal-meat, low portion of carb's or brown rice or quinoa,vegetable, seltzer or water or unsweetened almond milk Snacks: high-protein PB cup (low carb) or high-protein pop tart Drinks: water, seltzer, coffee in AM-less 64 ounces daily Restaurant meals: once or twice a week Alcohol: None Tobacco Use: No Weight management review: Wt Readings from Last 6 Encounters: 03/31/24 60.2 kg (132 lb 12.8 oz) 03/21/24 62 kg (136 lb 9.6 oz) 02/17/24 57.6 kg (127 lb) 01/21/24 54.9 kg (121 lb) 12/20/23 51.7 kg (114 lb) 11/18/23 50.8 kg (112 lb) Recent weight changes: decreased 3-4 lbs in past 1 1/2 weeks Physical Activity: Walking-3-4 times a week, light weight lifting-2-3 times a week ADA STANDARDS OF CARE/BUNDLE MEASURES Diabetes Bundle / Standards of Care: Gestational Diabetes Participant Therapy Management Plan: Hypertension: BP Readings from Last 3 Encounters: 03/21/24 104/62 02/17/24 102/64 01/21/24 98/60 Gestational Diabetes Participant, being monitored by RESOURCE CONSERVATIONIST. Dyslipidemia: No results found for: "LDL" No results found for: "TRIG", "CHOL", "HDL" Gestational Diabetes Mellitus Participant Kidney function review: No results found for: "ESTIMATED GLOMERULAR FILTRATION RATE - [facility]" No results found for: "ALBUMIN / CREATININE RATIO", "ALBUMIN / CREATININE RATIO, URINE - [facility]" No results found for: "PROTEIN/ CREATININE RATIO", "PROTEIN/ CREATININE RATIO, URINE - [facility]" Gestational Diabetes Mellitus Participant DSMT Initial Visit Assessment of Content Areas: Choose the answer that represents the participant's competency in each area. All need to be assessed at initial. Areas taught must match intervention. If content area not assessed and/or intervened today, it will be deferred to future session. Diabetes disease process and treatment process: Needs review (2) Incorporating nutrition management into lifestyle: Needs instruction (1) Incorporating physical activity into lifestyle: Needs instruction (1) Using medications safely: Needs instruction (1) Monitoring blood glucose, interpreting and using results: Needs review (2) Prevention, detection, and treatment of acute complications: Needs instruction (1) Prevention, detection, and treatment of chronic complications: Needs instruction (1) Developing strategies to address psychosocial issues: Needs instruction (1) Developing strategies to promote health/change behavior: Needs instruction (1) DSMT/ Diabetes MNT intervention: Pathophysiology: Defined disease process. Discussed treatment options. Participant admits to a family history of diabetes on her father's side. Also, notes her sister's second was a GDM . Nutrition: Educated on the effects of macronutrients on diabetes control and diabetes complications. Taught and had participant identify foods that contain carbohydrates. Educated on using ADA plate method. GDM nutrition: Emphasis on need for carbohydrate control/consistency with structured meal schedule. Taught participant how to read a food label. Stressed importance of avoiding sugar sweetened beverages, fruit juices. Encouraged bedtime snack 8-10 hours before fasting test the next day. Emphasized importance of monitoring portion sizes of high-carb foods and eating consistent meals and snacks. Recommended 2-3 servings of carb's per meal and 1-2 servings at snacks. Reviewed recommended portion sizes of some common high-carb foods with her. Encouraged her to include a high-protein food with a high-carb food for snacks. Physical Activity: Educated on the role of physical activity on glucose control. Encouraged her to do a short session of walking or moving around if experiencing an elevated post prandial glucose level. Monitoring: Participant able to verbalize recommended target range for fasting and post prandial glucose levels. She uses a phone johann to track her levels. Discussed importance of monitoring glucose levels and monitoring for high-carb foods and how they effect her glucose levels. Chronic Complications: Participant able to verbalize large -weight baby as a potential complication with elevated glucose levels during . Reviewed further potential complications with her. She becomes tearful when discussing her anxiety and concerns of GDM-encouragement provided. Promote health/Change behavior: : Reviewed importance of glucose screening after having gestational diabetes. Educated on possible effects of hyper/hypoglycemia on the fetus and mother. Participant Selected Behavioral Objective: Nutrition: To improve blood glucose control I will aim for 2-3 servings of high- carb foods at meals(30-45 grams protein), and 1-2 servings of high-carb at snacks. (See handout or total grams of carb's from nutrition label.) Recommended Medication Changes: No changes. Education materials given to participant/caregiver and reviewed during today's visit: Understanding CHO's Planning Healthy Meals Diabetes Self-Management Support: Apps/Smart Phone Technology: glucose tracking johann Websites: www.diabetes.org Possible Future Topics: Content areas that were not assessed in first visit: All content areas have been assessed. Time Spent With Patient: Time in: 1:03 PM Time out: 2:04 PM Billing: DSMT: 1 Hour Plan for Return: 4 weeks Participant provided with contact information for Diabetes Care and Tobacco Stripping Machine Operator. All [facility] providers within the system are able to see [place] [employer] education and outcomes within the participant's electronic medical record. Catia Carver RDN, NUTRITION SERVICES [facility] Diabetes Care and Tobacco Stripping Machine Operator documented in this encounter Miscellaneous Notes * Pt Handout (on AVS) - Catia Carver RDN - 03/31/2024 1:42 PM EST Images from the original note were not included. [id number] Understanding Carbohydrates Just like a car needs the right type of fuel to run, you need the right kind of food to function. To keep your energy level up, your body needs food that has carbohydrates (carbs). But carbs raise blood sugar levels higher and faster than other kinds of food. Your dietitian will work with you to figure out the amount of carbs you need. Carbs come in 3 types: starches, sugars, and fiber. Starches Starches are found in grains, some vegetables, and beans. Grain products include bread, pasta, cereal, and tortillas. Starchy vegetables include potatoes, peas, corn, ellis beans, yams, and squash. Kidney beans, zuniga beans, black beans, garbanzo beans, and lentils also have starches. Sugars Sugars are found naturally in many foods. Or they can be added. Foods that contain natural sugar include fruits and fruit juices, dairy products, honey, and molasses. Added sugars are found in most desserts, processed foods, candy, regular soda, and fruit drinks. These are very helpful to treat lowblood sugar (hypoglycemia). They give you sugar quickly. Try to keep at least 15 to 20 grams of these simple sugars with you at all times. Eat or drink these if you start to have symptoms of low blood sugar. Fiber Fiber comes from plant foods. Your body can't digest most fiber. Instead of raising blood sugar levels like other carbs, fiber stops blood sugar from rising too quickly. Fiber is found in fruits, vegetables, whole grains, beans, peas, and many nuts. Understanding how to count your carbs Keep track of the amount of carbs you eat. This can help you keep the right balance of carbs, physical activity, and medicine. The amount of carbs you need will be different from what other people need. How much you need depends on many things. These include your health, the medicines you take, andhow active you are. Your healthcare team will help you figure out the right amount of carbs for you. You may start with 45 to 60 grams of carbs per meal, depending on your case. Carb counting is a system that helps you keep track of the carbohydrates you eat at each meal. Carbs come from many foods. These include grains, starchy vegetables, fruit, milk, beans, and snackfoods. You can either count carbohydrate grams or carbohydrate servings. When you count carbohydrate servings, 1 carbohydrate serving = 15 grams of carbohydrates. Here are some examples of foods that have about 15 grams of carbs (1 serving of carbohydrates): · 1/2 cup of canned or frozen fruit · A small piece of fresh fruit (4 ounces) · 1 slice of bread · 1/2 cup of oatmeal · 1/3 cup of rice · 4 to 6 crackers · 1/2 Cymraes muffin · 1/2 cup of black beans · 1/4 of a large baked potato (3 ounces) · 2/3 cup of plain fat-free yogurt · 1 cup of soup · 1/2 cup of casserole · 6 chicken nuggets · 1-kpnp-quynlg brownie or cake without frosting · 2 small cookies · 1/2 cup of ice cream or sherbet Carb counting is easier when food labels are available. Look at the label to see how many grams of total carbs per serving the food contains. Then you can figure out how much you should eat. If your food doesn't have a nutrition label, you should be able to get an idea of how many carbs there are per serving by using a book or website. Two very important lines to look at on the label are the serving size and the total carbohydrate amount per serving. Here are some tips for using food labels to count your carbs: · Check the serving size. The information on the label is based on that serving size. If you eat more than the listed serving size, you may have to double or triple the other information on the label. · Check the total grams of carbs. Total carbohydrate from the label includes sugar, starch, and fiber. Be sure to use the total carbohydrate number (minus the fiber) and not sugar alone. · Know how many grams of carbs you can have. Be familiar with the matching portion sizes. · Compare labels. Compare the labels of different products. Look at serving sizes and total carbs to find the products that work best for you. · Don't forget protein and fat. With the focus on carb counting, it might be easy to forget protein and fat in your meals. Don't forget to include sources of protein and healthy fat to balance your meals. Also watch how much salt (sodium) you eat. This is especially true if you have high blood pressure. If you have diabetes, limit the amount of sodium to less than 2,300 mg a day. It?s also important to be consistent with the amount of carbs and time you eat when taking a fixed dose of diabetes medicine. Work with your healthcare provider or dietitian if you need more help. They can help you keep track of your carbs. They can also help you figure out how many grams of carbs you should have. Last Reviewed Date: 2023 00:00:00 © 3609-0038 [employer]. All rights reserved. This information is not intended as a substitute for professional medical care. Always follow your healthcare professional's instructions. documented in this encounter Plan of Treatment Upcoming Encounters Date Type Department Care Team (Late st Contact Info) Description 04/04/2024 1:20 PM EST Telemedicine Performance Improvement Coordinator Obstetrics Maternal Medicine, [place] [address] [place] [address] Judie De La Fuente CRNP [address] [place] [address] 04/07/2024 8:30 AM EST Office Visit Gynecology/Obstetrics [facility] [address] [address] Maggie Monique CRNP [address] [place] [address] 04/13/2024 3:30 PM EST Therapy Psychology [facility] [address] [place] [address] Lizbeth Dean LCSW [address] [place] [address] 04/14/2024 7:45 AM EST Office Visit Performance Improvement Coordinator OB Maternal Medicine [facility] Carmenza Ruiz [address] [place] [address] Dr [address] [place] [address] Jake Muñoz MD [address] [place] [address] 04/14/2024 7:45 AM EST Imaging Maternal Medicine [facility] Carmenza Ruiz [address] [place] [address] Dr [address] [place] [address] Scheduled Referrals Name Type Priority Associated Diagnoses Orde r Schedule DIABETES MANAGEMENT EDUCATION (ADA) REFERRAL Referral Within [...] as of this encounter Visit Diagnoses Diagnosis Gestational diabetes mellitus (GDM) in third trimester, gestational diabetes method of control unspecified [O24.419] documented in this encounter Additional Health Concerns Active Problems Noted Date Diagnosed Date OB Reminders 03/12/2024 documented as of this encounter Care Teams Wealth Management Consultant Relationship Specialty Start Date End Date Glen Swenson MD [address] [place] [address] PCP - General Family Medicine 07/22/23 documented as of this encounter
--- OUTSIDE RECORDS SUMMARY | 2024-06-02 17:01 | External Medical Summary ---
Author Name Unknown Address Unknown Organization [id number]:[facility] [address] [place] [address] Laboratory Report Ordering Provider Test Date Status KAROL CHAO 03/21/2024 08:21:51 Final Observation Date Value Abnormality Reference (Units ) Status Glucose [Moles/volume] in Serum or Plasma --1 hour post 50 g glucose PO 03/21/2024 08:21:51 180 Above high normal 70-129 (mg/dL) Final Performing Location [facility] [address] [place] [id number]
--- OUTSIDE RECORDS SUMMARY | 2024-06-02 17:01 | External Medical Summary | Summary of Care ---
Author Name Unknown Organization [facility] Address [address] [place] [facility] [place] [address] Phone [phone] Care Team Providers Care Manufacturing Business Analyst Name Role Phone Glen Swenson MD Primary Care Provider Reason for Visit * Reason Comments Return Visit Encounter Details Date Type Department Care Team (Late st Contact Info) Description 01/21/2024 8:30 AM EST Office Visit Gynecology/Obstetric s [facility] [address] [place] [address] Maggie Monique CRNP [address] [place] [address] Normal in second trimester*; Anxiety during ; Maternal asthma complicating ; Breast feeding status of mother Allergies No known active allergiesdocumented as of this encounter (statuses as of 01/21/2024) Medications Fluticasone Propionate 50 MCG/ACT Nasal Suspension (Flonase) Administer 2 Sprays into nostril daily as needed for Allergies. 4 03/03/19 25 Active Complete Oral Capsule Therapy Pack Take by mouth. Ac tive Breast PumpIndication s:Breast feeding status of mother RAJWINDER 06/15/24, double electric pump, Z39.1 1 Each 4 Active Vitamin D3 75 MCG (3000 UT) Oral Tablet Take 1 Tablet by mouth in the morning. 01/21/20 24 Discontinu ed(Medicat ion List Clean Up) Amoxicillin 500 MG Oral Capsule (Amoxil) Take 1 Capsule by mouth in the morning and 1 Capsule before bedtime. Do all this for 10 days. 20 Capsule 4 01/21/20 24 Discontinu ed(Medicat ion List Clean Up) documented as of this encounter (statuses as of 01/21/2024) Active Problems Problem Noted Date Diagnosed Date Normal 01/21/2024 Anxiety during 01/21/2024 Maternal asthma complicating Estimated Date of Delivery Comme nts Yes 06/15/2024 Based on Ultraso und documented as of this encounter (statuses as of 01/21/2024) Resolved Problems Problem Noted Date Diagnosed Date Resolved Date Depressive disorder 03/09/2016 07/22/19 24 documented as of this encounter (statuses as of 01/21/2024) Immunizations Name Administration Dates Next Due COVID-19 [...] 12/20/2023 TDAP (age 10 and older)(Boostrix) 05/28/2022,03/2007 documented as of this encounter Social History [...] money to get more. Never true 07/22/2023 [place] Depression Scale Answer Date Recorded [place] Depression Scale Total 10 11/18/2023 The thought [...] Sign Reading Time Taken Comments Blood Pressure 98/60 01/21/2024 8:29 AM EST Pulse - - Temperature - - Respiratory Rate - - Oxygen Saturation - - Inhaled Oxygen Concentration - - Weight 54.9 kg (121 lb) 01/21/2024 8:29 AM EST Height - - Body Mass Index 22.7 07/22/2023 7:26 AM EDT documented in this encounter Progress Notes * Maggie Monique CRNP - 01/21/2024 8:41 AM EST 19w1d Doing well, thinks she feels some movement. No cramping/bleeding. Anatomy scan scheduled. DiscussedMSAFP and role in screening for ONTD, will obtain today. Anxiety well managed. Asthma mildly exacerbated with URIs, does well w/occasional prn inhaler use. Requests Rx for breast pump, provided. 4 week return LIANNE Ibrahim documented in this encounter Plan of Treatment Upcoming Encounters Date Type Department Care Team (Late st Contact Info) Description 01/21/2024 9:10 AM EST Laboratory Laboratory, [facility] [address] [facility] [place] [phone] [facility] [address] [facility] [place] [address] Normal in second trimester 02/02/2024 10:30 AM EST Imaging Radiology [facility] 2nd [facility] [address] [place] [address] 02/04/2024 3:00 PM EST Therapy Psychology [facility] [address] [facility] [place] [address] Lizbeth Dean, [facility] [address] [facility] [place] [address] Pending Results Name Type Priority Associated Diagnoses Date /Time MATERNAL SERUM AFP Lab Routine Normal in second trimester 01/21/2024 8:49 AM EST Scheduled Orders Name Type Priority Associated Diagnoses Orde r Schedule MATERNAL SERUM AFP Lab Routine Normal in second trimester Expected: 01/21/2024 (Approximate), Expires: 01/20/2025 Health Maintenance Due Date Last Done Comments Pneumococcal Vaccine: Pediatrics (0 to 5 Years) and At-Risk Patients (6 to 64 Years) (1 of 2 - PCV) 12/18/1995 HPV (Gardasil) Vaccine (3 - 3-dose SCDM series) 06/22/2019 03/30/2019, 06/02/2018 Hepatitis B Vaccine (2 of 2 - CpG 2-dose series) 08/19/2023 07/22/2023 Depression Screening 12/26/2024 12/27/2023, 12/13/2023, 11/26/2023, Additional history exists Pap Smear 11/17/2026 11/18/2023 Cervical Cancer Screening 11/17/2028 HPV/Co-Test 11/17/2028 11/18/2023 DTap/Tdap Vaccines (3 - Td or Tdap) 05/28/2032 05/28/2022, 03/01/2007 COVID-19 Vaccine Discontinued 12/29/2022, , 03/08/2021, Additional history exists Influenza Vaccine (FLU shot) Completed 12/20/2023, 03/08/2021, 11/30/2016 MENINGOCOCCAL (MENACTRA/MENVEO) Aged Out No longer eligible based on patient's age to complete this topic documented as of this encounter Medical Devices Not on filedocumented as of this encounter Visit Diagnoses Diagnosis Normal in second trimester- Primary Anxiety during Maternal asthma complicating Other current maternal conditions classifiable elsewhere, complicating , childbirth, or the puerperium, unspecified as to episode of care Breast feeding status of mother care and examination of lactating mother Normal in second trimester documented in this encounter Care Teams Manufacturing Business Analyst Relationship Specialty Start Date End Date Glen Swenson MD [address] [facility] [place] [address] PCP - General Family Medicine 07/22/23 documented as of this encounter
--- OUTSIDE RECORDS SUMMARY | 2024-06-02 17:01 | External Medical Summary ---
Author Name Unknown Address Unknown Organization : Laboratory Report Ordering Provider Test Date Status GAIL DE LA GARZA 01/21/2024 08:49:33 Final Observation Date Value Abnormality Reference (Units ) Status INTERPRETATION 01/21/2024 08:49:33 SEE BELOW Final Screen negative for open NTD . RISK FOR ONTD 01/21/2024 08:49:33 1:2498 Final CALC'D GESTATIONAL AGE 1101/21/2024 08:49:33 19.1 Final AFP, SERUM 01/21/2024 08:49:33 68.9 (ng/mL) Final AFP MOM 01/21/2024 08:49:33 1.14 Final Reference Range:
NTD <2 .50
IDD <1.90
TWINS <4.00
TWINS IDD <3.50
TRIPLETS <4.50
The AFP test result indicates that this patient is
screen negative for open NTD. It should be noted
that normal test results can never guarantee the
of a normal baby and that 2-3% of newborns
have some type of physical or mental defect, many
of which are undetectable through any known
diagnostic technique.
This is a screening test, not a diagnostic test.
This risk assessment report is based in part on
demographic data provided by the ordering
physician. Please notify the laboratory promptly
if any data are incorrect. For assistance with
recalculations, please call your local [facility] laboratory. For assistance with
interpretation of these results, please contact
your Local [facility] genetic counselor or
call [phone] ([phone]).
Interpretive Cutoffs
Screen Positive for Open NTD:
> or = 2.50 adjusted MOM
> or = 1.90 adjusted MOM for insulin-dependent diabetics
> or = 4.00 adjusted MOM for twins
> or = 3.50 adjusted MOM for twins insulin-dependent diabetics
> or = 4.50 adjusted MOM for triplets
For additional information, please refer to
[email or web address]
(This link is being provided for
informational/educational purposes only.) DATE OF 01/21/2024 08:49:33 1990 Final COLLECTION DATE 01/21/2024 08:49:33 01/21/2024 Final MATERNAL WEIGHT 01/21/2024 08:49:33 120 (lbs ) Final EST'D DATE OF DELIVERY 01/21/2024 08:49:33 06/15/2024 Final RAJWINDER DETERMINED BY 01/21/2024 08:49:33 LMP Final MOTHER'S ETHNIC ORIGIN 01/21/2024 08:49:33 WHITE Final NUMBER OF FETUSES 01/21/2024 08:49:33 1 Final INSULIN DEPEND DIABETIC 01/21/2024 08:49:33 NO Final REPEAT SPECIMEN 01/21/2024 08:49:33 NO Final HX OF NEURAL TUBE DEFECTS 01/21/2024 08:49:33 NO Final PREV DOWN SYND 01/21/2024 08:49:33 NO Final DONOR EGG 01/21/2024 08:49:33 NO Final DONOR AGE: EGG RETRIEVAL 01/21/2024 08:49:33 NOT GIVEN Final Test performed by [facility]
[address],
[place] [address]

M[employer] Shop Supervisor: Perla Mcqueen MD,PHD,NIKIA
Test Reported by Kota Pandya,
[facility],
[address] [place], [place]
Denilson Lopez M.D., Ph.D., Director of Laboratories
, ELO [id number] Performing Location
--- OUTSIDE RECORDS SUMMARY | 2024-06-02 17:01 | External Medical Summary | Summary of Care ---
Author Name Unknown Organization [facility] Address [address] [place] [address] Phone [phone] Care Team Providers Care Yarding Engineer Name Role Phone Glen Swenson MD Primary Care Provider Reason for Visit * Reason Comments Psychotherapy Encounter Details Date Type Department Care Team (Late st Contact Info) Description 02/04/2024 3:00 PM EST Therapy Psychology [facility] [address] [place] [address] Lizbeth Dean, [facility] [address] [place] [address] Adjustment disorder with mixed anxiety and depressed mood* Allergies No known active allergiesdocumented as of this encounter (statuses as of 02/04/2024) Medications Fluticasone Propionate 50 MCG/ACT Nasal Suspension (Flonase) Administer 2 Sprays into nostril daily as needed for Allergies. 4 03/03/19 25 Active Complete Oral Capsule Therapy Pack Take by mouth. Activ e Breast PumpIndications :Breast feeding status of mother RAJWINDER 06/15/24, double electric pump, Z39.1 1 Each 4 Active documented as of this encounter (statuses as of 02/04/2024) Active Problems Problem Noted Date Diagnosed Date Normal 01/21/2024 Anxiety during 01/21/2024 Maternal asthma complicating 4 Estimated Date of Delivery Comme nts Yes 06/15/2024 Based on Ultraso und documented as of this encounter (statuses as of 02/04/2024) Resolved Problems Problem Noted Date Diagnosed Date Resolved Date Depressive disorder 03/09/2016 07/22/19 24 documented as of this encounter (statuses as of 02/04/2024) Immunizations Name Administration Dates Next Due COVID-19 mRNA, LNP-s, No Pre serve, 2-Dose Series (Dinnr) 06/24/2020,06/03/2020 Covid-19, Mrna, Lnp-s, Pf, B ivalent, [...] money to get more. Never true 07/22/2023 [place] Depression Scale Answer Date Recorded [place] Depression Scale Total 10 11/18/2023 The thought [...] No 07/22/2023 Does the household have a [facility] source [facility] income? (Household [...] Progress Notes * Lizbeth Dean, PHIL - 02/04/2024 3:09 PM EST PRIMARY CARE BEHAVIORAL HEALTH FOLLOW-UP 02/04/2024 Length of visit: 50 minutes (3:10 pm - 4:00 pm) Type of Visit: individual Treatment session number: 4 AGENDA & ACTION PLAN: -Check in-Malou sharing update of her situation. -Today therapist utilizing open ended, closed ended and clarifying questions and empathetic and active listening to promote expression of thoughts and feelings as she provided update to her situation. Malou shared overall better mood since but recently some feelings of being down. She could not identify specific stressor impacting mood. Therapist provided some coping skills regarding management of mood. -Today therapist providing continued education about CBT including Core Beliefs, cognitive distortions and we spent time processing this and discussing this in session. Optional: Interventions addressed in treatment thus far: Treatment/Intervention Visit 02/04/2024 1 2 3 4 5 6 Behavioral activation Behavior modification for poor health behaviors (e.g., smoking cessation) Breathing re-training mindfulness training Cognitive restructuring/diffusion x Exercise/physical activity Problem-solving Psychoeducation x Exposure and/or response prevention Supportive therapy x Sleep hygiene Stimulus control Time in bed restriction Conduct WHO (CM,ELLEN,MTM) MENTAL STATUS EXAMINATION: No changes to mental [...] Dean LCSW Primary Care Behavioral Health Psychology [facility] [address] [place] [address] documented in this encounter Plan of Treatment Upcoming Encounters Date Type Department Care Team (Late st Contact Info) Description 02/17/2024 4:30 PM EST Office Visit Gynecology/Obstetrics [facility] [address] [place] [address] Kiya Dorsey PA-C [address] [place] [address] 03/15/2024 11:30 AM EST Therapy Psychology [facility] [address] [place] [address] Lizbeth Dean, [facility] [address] [place] [address] Health Maintenance Due Date Last Done Comments [...] as of this encounter Visit Diagnoses Diagnosis Adjustment disorder with mixed anxiety and depressed mood- Primary documented in this encounter Care Teams Yarding Engineer Relationship Specialty Start Date End Date Glen Swenson MD [address] [place] [place] [address] PCP - General Family Medicine 07/22/23 documented as of this encounter
--- OUTSIDE RECORDS SUMMARY | 2024-06-02 17:01 | External Medical Summary | Summary of Care ---
Author Name Unknown Organization [facility] Address [address] [place] [address] Phone [phone] Care Team Providers Care Line Leader Name Role Phone Glen Swenson MD Primary Care Provider Reason for Visit * Reason Comments Outpatient Testing Encounter Details Date Type Department Care Team (Late st Contact Info) Description 01/21/2024 9:10 AM EST Laboratory Laboratory, [facility] [address] [facility] [place] [phone] [facility] [address] [facility] [place] [address] Normal in second trimester Allergies No known active allergiesdocumented as of this encounter (statuses as of 01/21/2024) Medications Fluticasone Propionate 50 MCG/ACT Nasal Suspension (Flonase) Administer 2 Sprays into nostril daily as needed for Allergies. 4 03/03/19 Active Complete Oral Capsule Therapy Pack Take [...] mRNA, LNP-s, No Pre serve, 2-Dose Series ([employer]) 06/24/2020,06/03/2020 Covid-19, Mrna, Lnp-s, Pf, B ivalent, [...] money to get more. Never true 07/22/2023 [place] Depression Scale Answer Date Recorded [place] Depression Scale Total 10 11/18/2023 The thought [...] No 07/22/2023 Does the household have a [facility] source of income? (Household - for [...] Care Team (Late st Contact Info) Description 02/02/2024 10:30 AM EST Imaging Radiology [facility] [address] [place] [address] 02/04/2024 3:00 PM EST Therapy Psychology [facility] [address] [place] [address] Lizbeth Dean, [facility] [address] [place] [address] Pending Results Name Type Priority Associated Diagnoses Date /Time MATERNAL SERUM AFP Lab Routine Normal in second trimester 01/21/2024 8:49 AM EST Health Maintenance Due Date Last [...] encounter Visit Diagnoses Diagnosis Normal in second trimester documented in this encounter Care Teams Line Leader Relationship Specialty Start Date End Date Glen Swenson MD [address] [place] [address] PCP - General Family Medicine 07/22/23 documented as of this encounter
--- OUTSIDE RECORDS SUMMARY | 2024-06-02 17:01 | External Medical Summary | Summary of Care ---
Author Name Unknown Organization [facility] Address [address] [place] [address] Phone [phone] Care Team Providers Care Numberer And Wirer Name Role Phone Glen Swenson MD Primary Care Provider Reason for Visit * Reason Comments Outpatient Testing Encounter Details Date Type Department Care Team (Late st Contact Info) Description 03/21/2024 7:20 AM EST Laboratory Laboratory, [facility] [address] [facility] [place] [phone] [facility] [address] [place] [address] Normal in second trimester Allergies No known active allergiesdocumented as of this encounter (statuses as of 03/21/2024) Medications Complete Oral Capsule Therapy Pack Take by mouth. Active Breast PumpIndications :Breast feeding status of mother RAJWINDER 06/15/24, double electric pump, Z39.1 1 Each 01/21/2024 Active documented as of this encounter (statuses as of 03/21/2024) Active Problems Problem Noted Date Diagnosed Date Normal 01/21/2024 Anxiety during 01/21/2024 Maternal asthma complicating Estimated Date of Delivery Comme nts Yes 06/15/2024 Based on Ultraso und documented as of this encounter (statuses as of 03/21/2024) Resolved Problems Problem Noted Date Diagnosed Date Resolved Date Depressive disorder 03/09/2016 07/22/19 24 documented as of this encounter (statuses as of 03/21/2024) Immunizations Name Administration Dates Next Due COVID-19 [...] money to get more. Never true 07/22/2023 [place] Depression Scale Answer Date Recorded [place] Depression Scale Total 10 11/18/2023 The thought [...] No 07/22/2023 Does the household have a [facility] source [facility] income? (Household - for [...] Description 04/13/2024 3:30 PM EST Therapy Psychology [facility] [address] [place] [address] Lizbeth Dean, [facility] [address] [place] [address] Pending Results Name Type Priority Associated Diagnoses Date /Time 50-G GESTATIONAL GLUCOSE, 1 HOUR Lab Routine Normal in second trimester 03/21/2024 8:21 AM EST CBC WITH WBC DIFFERENTIAL AND ANEMIA REFLEX WORKUP Lab Routine Normal in second trimester 03/21/2024 8:21 AM EST SYPHILIS ANTIBODY SCREEN WITH REFLEX TO RPR Lab Routine Normal in second trimester 03/21/2024 8:21 AM EST ANEMIA CBC Lab Routine Normal in second trimester 03/21/2024 8:21 AM EST DIFFERENTIAL, AUTOMATED Lab Routine Normal in second trimester 03/21/2024 8:21 AM EST ANEMIA REFLEX CHEMISTRY HOLD Lab Routine Normal in second trimester 03/21/2024 8:21 AM EST SYPHILIS ANTIBODY SCREEN Lab Routine Normal in second trimester 03/21/2024 8:21 AM EST Health Maintenance Due Date Last [...] in second trimester documented in this encounter Additional Health Concerns Active Problems Noted Date Diagnosed Date OB Reminders 03/12/2024 documented as of this encounter Care Teams Numberer And Wirer Relationship Specialty Start Date End Date Glen Swenson MD [address] [place] [address] PCP - General Family Medicine 07/22/23 documented as of this encounter
--- OUTSIDE RECORDS SUMMARY | 2024-06-02 17:01 | External Medical Summary ---
Author Name Unknown Address Unknown Organization K01:[facility] [place] [address] [place] [address] Laboratory Report Ordering Provider Test Date Status KAROL CHAO 03/21/2024 08:21:51 Final Observation Date Value Abnormality Reference (Units ) Status SYNC LEUKOCYTES IN BLOOD BY AUTOMATED COUNT 03/21/2024 08:21:51 10.98 Above high normal 4.00-10.80 (K/uL) Final Segs 03/21/2024 08:21:51 80.1 Above high normal 40.0-75.0 (%) Final Lymphs % 03/21/2024 08:21:51 13.8 Below low normal 18.0-42.0 (%) Final Monos 03/21/2024 08:21:51 5.0 1.0-11.0 (%) Final Eosinophils 03/21/2024 08:21:51 0.2 0.0-6.0 (%) Final Basos 03/21/2024 08:21:51 0.3 0.0-2.0 (%) Final Immature Granulocyte, Percent 03/21/2024 08:21:51 0.6 0.0-2.0 (%) Final Absolute Segs 03/21/2024 08:21:51 8.80 Above high normal 1.80-7.70 (K/uL) Final Lymphs, absolute 03/21/2024 08:21:51 1.51 1.00-4.80 (K/ul) Final Monos, Abs 03/21/2024 08:21:51 0.55 0.00-1.10 (K/uL) Final Eos, Abs 03/21/2024 08:21:51 0.02 0.00-0.70 (K/uL) Final Basos, Abs 03/21/2024 08:21:51 0.03 0.00-0.20 (K/uL) Final Immature Granulocytes, Number 03/21/2024 08:21:51 0.07 0.00-0.20 (K/uL) Final Performing Location [facility] [place] [address] [facility] [address]
--- OUTSIDE RECORDS SUMMARY | 2024-06-02 17:01 | External Medical Summary | Summary of Care ---
Author Name Unknown Organization [facility] Address [address] [place] [address] Phone [phone] Care Team Providers Care Lean Process Deployment Consultant Name Role Phone Glen Swenson MD Primary Care Provider Reason for Visit * Reason Comments Return Visit Encounter Details Date Type Department Care Team (Late st Contact Info) Description 03/21/2024 8:00 AM EST Office Visit Gynecology/Obstetric s [facility] [address] [place] [address] Shakila Thurston CRNP [address] [place] [address] Normal in third trimester*; Anxiety during ; Maternal asthma complicating ; Need for qfyapcldzf-lwotpwv-xl rtussis (Tdap) vaccine Allergies No known active allergiesdocumented as of [...] money to get more. Never true 07/22/2023 [place] Depression Scale Answer Date Recorded [place] Depression Scale Total 10 11/18/2023 The thought [...] No 07/22/2023 Does the household have a [facility] source of income? (Household - for ages [...] Sign Reading Time Taken Comments Blood Pressure 104/62 03/21/2024 7:57 AM EST Pulse - - Temperature - - Respiratory Rate - - Oxygen Saturation - - Inhaled Oxygen Concentration - - Weight 62 kg (136 lb 9.6 oz) 03/21/2024 7:57 AM EST Height - - Body Mass Index 25.63 07/22/2023 7:26 AM EDT documented in this encounter Progress Notes * Lizette Turner CMA - 03/21/2024 8:12 AM EST Patient here for TDAP injection. Patient doing well no complaints. Injection given IM as ordered. Patient tolerated well. Patient to follow up as directed. Patient instructed to call if any complications. Patient verbalized understanding of instructions given and her follow up appt for LUIZA Injection site: Right Deltoid Medication Source: Dispensed stock medication * Shakila Thurston CRNP - 03/21/2024 8:09 AM EST 27w5d C/o postnasal drip. Suggested zyrtec if she feels it is allergy related, sudafed otherwise. Baby is active. Denies contractions, bleeding, LOF. Glucola, TDAP today. LIANNE Rivera * Lizette Turner CMA - 03/21/2024 7:57 AM EST 27w5d Recommendation for post nasal drip. documented in this encounter Plan of Treatment Upcoming Encounters Date Type Department Care Team (Late st Contact Info) Description 04/13/2024 3:30 PM EST Therapy Psychology [facility] [address] [place] [address] Lizbeth Dean [facility] [address] [place] [address] Health Maintenance Due Date Last Done Comments [...] this encounter Visit Diagnoses Diagnosis Normal in third trimester- Primary Anxiety during Maternal asthma complicating Other current maternal conditions classifiable elsewhere, complicating , childbirth, or the puerperium, unspecified as to episode of care Need for yokqmiyxtx-odaxbtw-geqrhgqaf (Tdap) vaccine Need for prophylactic vaccination with combined qliqbfsmeh-ncmhqtz-emdtjefls (DTP) vaccine documented in this encounter Additional Health Concerns Active Problems Noted Date Diagnosed Date OB Reminders 03/12/2024 documented as of this encounter Care Teams Lean Process Deployment Consultant Relationship Specialty Start Date End Date Glen Swenson MD [address] [place] [address] PCP - General Family Medicine 07/22/23 documented as of this encounter
--- OUTSIDE RECORDS SUMMARY | 2024-06-02 17:01 | External Medical Summary | Summary of Care ---
Author Name Unknown Organization [facility] Address [address] [place] [address] Phone [phone] Care Team Providers Care Stippler Name Role Phone Glen Swenson MD Primary Care Provider Reason for Visit * Reason Onset Date Comments Appointment 01/18/2024 Encounter Details Date Type Department Care Team (Late st Contact Info) Description 01/18/2024 Telephone Gynecology/Obstetrics [facility] [address] [place] [address] Kerwin Alejandro MD [address] [place] [address] Appointment Allergies No known active allergiesdocumented as of this encounter (statuses as of 01/18/2024) Medications Fluticasone Propionate 50 MCG/ACT Nasal Suspension (Flonase) Administer 2 Sprays into nostril daily as needed for Allergies. 4 03/03/19 25 Active Vitamin D3 75 MCG (3000 UT) Oral Tablet Take 1 Tablet by mouth in the morning. Active Complete Oral Capsule Therapy Pack Take by mouth. Activ e Amoxicillin 500 MG Oral Capsule (Amoxil) Take 1 Capsule by mouth in the morning and 1 Capsule before bedtime. Do all this for 10 days. 20 Capsule 4 01/22/20 24 Active documented as of this encounter (statuses as of 01/18/2024) Active Problems Estimated Date of Delivery Comme nts Yes 06/15/2024 Based on Ultraso und No known active problems documented as of this encounter (statuses as of 01/18/2024) Resolved Problems Problem Noted Date Diagnosed Date Resolved Date Depressive disorder 03/09/2016 07/22/19 24 documented as of this encounter (statuses as of 01/18/2024) Immunizations Name Administration Dates Next Due COVID-19 mRNA, LNP-s, No Pre serve, 2-Dose Series ([email or web address]) 06/24/2020,06/03/2020 Covid-19, Mrna, Lnp-s, Pf, B ivalent, [...] money to get more. Never true 07/22/2023 [place] Depression Scale Answer Date Recorded [place] Depression Scale Total 10 11/18/2023 The thought [...] No 07/22/2023 Does the household have a [facility] income? (Household - [...] encounter Miscellaneous Notes * Telephone Encounter - Naz Mendiola LPN - 01/18/2024 9:44 AM EST Patient called to schedule anatomy scan for the week after thanksgiving. Anatomy US ordered for patient per Flavia. documented in this encounter Plan of Treatment Upcoming Encounters Date Type Department Care Team (Late st Contact Info) Description 01/21/2024 8:30 AM EST Office Visit Gynecology/Obstetrics [facility] [address] [place] [address] BackerMaggie CRNP [address] [place] [address] 02/02/2024 10:30 AM EST [facility] [address] [facility] [place] [address] 02/04/2024 3:00 PM EST Therapy Psychology [facility] [address] [facility] [place] [address] Lizbeth Dean, [facility] [address] [place] [address] Scheduled Orders Name Type Priority Associated Diagnoses Orde r Schedule US PREG SINGLE/1ST GEST, 14 WEEKS OR LATER Medical Imaging Routine Encounter for supervision of normal first in first trimester Expected: 01/28/2024 (Approximate), Expires: 02/16/2025 Health Maintenance Due Date Last Done Comments HPV (Gardasil) Vaccine (3 - 3-dose SCDM [...] on patient's age to complete this topic Pneumococcal Vaccine: Pediatrics (0 to 5 Years) and At-Risk Patients (6 to 64 Years) Aged Out No longer eligible based on patient's age to complete this topic documented as of this encounter Medical Devices Not on filedocumented as of this encounter Visit Diagnoses Diagnosis Encounter for supervision of normal first in first trimester- Primary Supervision of normal first documented in this encounter Care Teams Stippler Relationship Specialty Start Date End Date Glen Swenson MD [address] [facility] [place] [address] PCP - General Family Medicine 07/22/23 documented as of this encounter
--- OUTSIDE RECORDS SUMMARY | 2024-06-02 17:01 | External Medical Summary | Summary of Care ---
Author Name Unknown Organization [facility] Address [address] [facility] [place] [address] Phone [phone] Care Team Providers Care Ged Instructor Name Role Phone Glen Swenson MD Primary Care Provider Reason for Visit * Reason Comments Return Visit Encounter Details Date Type Department Care Team (Late st Contact Info) Description 02/17/2024 4:30 PM EST Office Visit Gynecology/Obstetric s [facility] [address] [place] [address] Kiya Dorsey PA-C [address] [place] [address] Normal in second trimester*; Anxiety during ; Maternal asthma complicating Allergies No known active allergiesdocumented as of this encounter (statuses as of 02/17/2024) Medications Fluticasone Propionate 50 MCG/ACT Nasal Suspension (Flonase) Administer 2 Sprays into nostril daily as needed for Allergies. 4 03/03/19 25 Active Complete Oral Capsule Therapy Pack Take by mouth. Activ e Breast PumpIndications :Breast feeding status of mother RAJWINDER 06/15/24, double electric pump, Z39.1 1 Each 4 Active documented as of this encounter (statuses as of 02/17/2024) Active Problems Problem Noted Date Diagnosed Date Normal 01/21/2024 Anxiety during 01/21/2024 Maternal asthma complicating 4 Estimated Date of Delivery Comme nts Yes 06/15/2024 Based on Ultraso und documented as of this encounter (statuses as of 02/17/2024) Resolved Problems Problem Noted Date Diagnosed Date Resolved Date Depressive disorder 03/09/2016 07/22/19 24 documented as of this encounter (statuses as of 02/17/2024) Immunizations Name Administration Dates Next Due COVID-19 [...] money to get more. Never true 07/22/2023 [place] Depression Scale Answer Date Recorded [place] Depression Scale Total 10 11/18/2023 The thought [...] Sign Reading Time Taken Comments Blood Pressure 102/64 02/17/2024 4:41 PM EST Pulse - - Temperature - - Respiratory Rate - - Oxygen Saturation - - Inhaled Oxygen Concentration - - Weight 57.6 kg (127 lb) 02/17/2024 4:41 PM EST Height - - Body Mass Index 23.82 07/22/2023 7:26 AM EDT documented in this encounter Progress Notes * Kiya Dorsey PA-C - 02/17/2024 5:00 PM EST 23w0d No concerns. Reviewed third tri labs and glucola next vitis. Discussed recommendation for TDAP. Denies VB, LOF. + FM. RTC in 4 weeks Kiya Dorsey PA-C * Carolina Perez LPN - 02/17/2024 4:41 PM EST Pt is currently 23w0d with an Estimated Date of Delivery: 06/15/24 - documented in this encounter Plan of Treatment Upcoming Encounters Date Type Department Care Team (Late st Contact Info) Description 03/15/2024 11:30 AM EST Therapy Psychology [facility] [place] [address] Lizbeth Dean LCSW [address] [place] [address] Scheduled Orders Name Type Priority Associated Diagnoses Orde r Schedule 50-G GESTATIONAL GLUCOSE, 1 HOUR Lab Routine Normal in second trimester Expected: 03/23/2024 (Approximate), Expires: 02/16/2025 CBC WITH WBC DIFFERENTIAL AND ANEMIA REFLEX WORKUP Lab Routine Normal in second trimester Expected: 03/23/2024 (Approximate), Expires: 02/16/2025 SYPHILIS ANTIBODY SCREEN WITH REFLEX TO RPR Lab Routine Normal in second trimester Expected: 03/23/2024 (Approximate), Expires: 02/16/2025 Health Maintenance Due Date [...] episode of care documented in this encounter Care Teams Ged Instructor Relationship Specialty Start Date End Date Glen Swenson MD [address] [facility] [place] [address] PCP - General Family Medicine 07/22/23 documented as of this encounter
--- OUTSIDE RECORDS SUMMARY | 2024-06-02 17:01 | External Medical Summary ---
Author Name Unknown Address Unknown Organization [id number]:[facility] [place] - [address] [place] [address] Laboratory Report Ordering Provider Test Date Status KAROL CHAO 03/21/2024 08:21:51 Final Observation Date Value Abnormality Reference (Units ) Status Treponema pallidum Ab [Presence] in Serum by Immunoassay 03/21/2024 08:21:51 Nonreactive Nonreactive Final No serologic evidence of syp hilis. No additional testing clinicially indicated at this time. Consider repeat testing in 2-4 weeks if acute or primary syphilis is suspected. Performing Location [facility] [place] - [address] [place] [address]
--- OUTSIDE RECORDS SUMMARY | 2024-06-02 17:01 | External Medical Summary | Summary of Care ---
Author Name Unknown Organization [facility] Address [address] [place] [address] Phone [phone] Care Team Providers Care Ediphone Operator Name Role Phone Glen Swenson MD Primary Care Provider Reason for Visit * Reason Onset Date Comments Other 03/22/2024 Encounter Details Date Type Department Care Team (Late st Contact Info) Description 03/22/2024 Telephone Gynecology/Obstetrics [facility] [address] [place] [address] Services, Scheduling [address] [place] [address] Other Allergies No known active allergiesdocumented as of this encounter (statuses as of 03/22/2024) Medications Complete Oral Capsule Therapy Pack Take by mouth. Active Breast PumpIndications :Breast feeding status of mother RAJWINDER 06/15/24, double electric pump, Z39.1 1 Each 01/21/2024 Active documented as of this encounter (statuses as of 03/22/2024) Active Problems Problem Noted Date Diagnosed Date Normal 01/21/2024 Anxiety during 01/21/2024 Maternal asthma complicating Estimated Date of Delivery Comme nts Yes 06/15/2024 Based on Ultraso und documented as of this encounter (statuses as of 03/22/2024) Resolved Problems Problem Noted Date Diagnosed Date Resolved Date Depressive disorder 03/09/2016 07/22/19 24 documented as of this encounter (statuses as of 03/22/2024) Immunizations Name Administration Dates Next Due COVID-19 [...] money to get more. Never true 07/22/2023 [place] Depression Scale Answer Date Recorded [place] Depression Scale Total 10 11/18/2023 The thought [...] No 07/22/2023 Does the household have a [facility] source [facility]? (Household - for ages [...] a call back. Please contact patient at [phone] Thank you, Abbey Rojas Extension Course Coordinator II Women's Health Scheduling documented in this encounter Plan of Treatment Upcoming Encounters Date Type Department Care Team (Late st Contact Info) Description 03/23/2024 7:40 AM EST Laboratory Laboratory, [facility] [address] [place] [phone] Isabelle Garay [email or web address] [address] [place] [address] 04/07/2024 8:30 AM EST Office Visit Gynecology/Obstetrics [facility] [address] [place] [address] Maggie Monique CRNP [address] [place] [address] 04/13/2024 3:30 PM EST Therapy Psychology [facility] [address] [place] [address] Lizbeth Dean LCSW [address] [place] [address] Scheduled Orders Name Type Priority Associated Diagnoses Orde r Schedule GESTATIONAL GLUCOSE TOLERANCE, 3 HOUR Lab Routine Abnormal glucose tolerance in mother complicating Expected: 03/22/2024, Expires: 03/22/2025 Health Maintenance Due Date Last Done Comments [...] documented as of this encounter Care Teams Ediphone Operator Relationship Specialty Start Date End Date Glen Swenson MD [address] [place] [address] PCP - General Family Medicine 07/22/23 documented as of this encounter
--- OUTSIDE RECORDS SUMMARY | 2024-06-02 17:01 | External Medical Summary ---
Author Name Unknown Address Unknown Organization K01[place] [place] [address] [place] [address] Laboratory Report Ordering Provider Test Date Status KAROL CHAO 03/21/2024 08:21:51 Final Observation Date Value Abnormality Reference (Units ) Status WBC, Total 03/21/2024 08:21:51 10.98 Above high normal 4 .00-10.80 (K/uL) Final RBC 03/21/2024 08:21:51 3.54 3.85-5.15 (M/uL) Final Hemoglobin 03/21/2024 08:21:51 12.0 12.0-15.3 (g/dL) Final Anemia reflex testing trigge rs on a HGB < 12.0 for Females and HGB < 13.0 for Males in accordance with the WHO Anemia Guidelines
Anemia reflex testing triggers on a HGB < 12.0 for Females and HGB < 13.0 for Males in accordance with the WHO Anemia Guidelines HCT 03/21/2024 08:21:51 35.7 Below low normal 36. 0-45.2 (%) Final MCV 03/21/2024 08:21:51 100.8 81.5-97.5 (fL) Final MCH 03/21/2024 08:21:51 33.9 27.0-34.0 (pg) Final MCHC 03/21/2024 08:21:51 33.6 32.0-36.0 (g/dL) Final RDW 03/21/2024 08:21:51 13.1 11.5-15.5 (%) Final Platelets 03/21/2024 08:21:51 189 140-400 (K /uL) Final MPV 03/21/2024 08:21:51 10.7 6.6-11.1 ( fL) Final Nucleated erythrocytes/100 leukocytes [Ratio] in Blood by Automated count 03/21/2024 08:21:51 0 <=0 (/100 WBCs) Formerly [facility], 1928–1983 Performing Location [facility] - [address] [facility] [address]
--- OUTSIDE RECORDS SUMMARY | 2024-06-02 17:02 | External Medical Summary | Summary of Care ---
Author Name Unknown Organization [facility] Address [address] [place] [address] Phone [phone] Care Team Providers Care Slumber Room Attendant Name Role Phone Glen Swenson MD Primary Care Provider Reason for Visit * Reason Comments Psychological Evaluation Encounter Details Date Type Department Care Team (Late st Contact Info) Description 12/13/2023 4:00 PM EDT Therapy Psychology [facility] [address] [place] [address] Lizbeth Dean, [facility] [address] [place] [address] Adjustment disorder with mixed anxiety and depressed mood* Allergies No known active allergiesdocumented as of this encounter (statuses as of 12/13/2023) Medications Medication Sig Dispensed Refills Start Date End Date Status Fluticasone Propionate 50 MCG/ACT Nasal Suspension (Flonase) Administer 2 Sprays into nostril daily as needed for Allergies. 03/04/2023 03/03/2024 Active Vitamin D3 75 MCG (3000 UT) Oral Tablet Take 1 Tablet by mouth in the morning. Active Complete Oral Capsule Therapy Pack Take by mouth. Active documented as of this encounter (statuses as of 12/13/2023) Active Problems Estimated Date of Delivery Comme nts Yes 06/15/2024 Based on Ultraso und No known active problems documented as of this encounter (statuses as of 12/13/2023) Resolved Problems Problem Noted Date Diagnosed Date Resolved Date Depressive disorder 03/09/2016 07/22/19 24 documented as of this encounter (statuses as of 12/13/2023) Immunizations Name Administration Dates Next Due COVID-19 [...] mons & Above, 0.5 mL, IM 03/08/2021,11/30/2016 TDAP (age 10 and older)(Boostrix) 05/28/2022,03/2007 documented as of this encounter Social History Tobacco Use Types Packs/Day Years Used Date Smoking Tobacco: Never Passive Smoke Exposure: Never Smokeless Tobacco: Never Alcohol Use Standard Drinks/Week Comments Not Currently 1 (1 standard drink = 0.6 oz pur e alcohol) PHQ-2 Answer Date Recorded PHQ Adult Total Score 8 11/26/2023 Hunger Vital Sign Answer Date Recorded Within the past 12 months, y ou worried that your food would run out before you got the money to buy more. Never true 07/22/19 24 Within the past 12 months, t he food you bought just didn't last and you didn't have money to get more. Never true 07/22/2023 [place] Depression Scale Answer Date Recorded [place] Depression Scale Total 10 11/18/2023 The thought [...] Assigned at Female 07/22/2023 7:19 AM EDT Gender Identity Female 07/22/2023 7:19 AM EDT Sexual Orientation Straight 07/22/2023 7: 19 AM EDT Job Start Date Occupation Industry Not on file Not on file Not on file documented as of this encounter Progress Notes * Lizbeth Dean, FROG CATCHER - 12/13/2023 3:58 PM EDT PRIMARY CARE BEHAVIORAL HEALTH FOLLOW-UP 12/13/2023 Length of visit: 50 minutes (4:05 pm - 4:55 pm) Type of Visit: individual Treatment session number: 2 AGENDA & ACTION PLAN: -Check in-Malou sharing update of her situation. Feeling some irritability related to specific events. -Today we spent some time in session processing Malou's shared update of situation and factors impacting mood. Therapist providing open ended, closed ended, clarifying questions and reflective and empathetic listening to promote expression of thoughts and feelings and observations. Malou identifying factors that are important to her and how her has influenced her thoughts about motherhood. -Today therapist introduced CBT concepts connecting thoughts to emotions to behavior. We processed in session. Malou identifying times when negative thoughts surface especially related to appearance and fear of failure. We discussed how thoughts impact emotions and action. Therapist discussed use of re-framing; positive thoughts. -For homework Malou will identify strengths, qualities about herself that she likes. She will also practice deep breathing . Optional: Interventions addressed in treatment thus far: Treatment/Intervention Visit 12/13/2023 1 2 3 4 5 6 Behavioral [...] Dean LCSW Primary Care Behavioral Health Psychology [facility] [address] [facility] [place] [address] documented in this encounter Plan of Treatment Upcoming Encounters Date Type Department Care Team (Late st Contact Info) Description 12/20/2023 8:30 AM EDT Office Visit Gynecology/Obstetrics [facility] [address] [address] BackerMaggie CRNP [address] [place] [address] 12/27/2023 4:00 PM EDT Therapy Psychology [facility] [address] [place] [address] Lizbeth Dean, [facility] [address] [place] [address] 01/10/2024 4:00 PM EST Therapy Psychology [facility] [address] [place] [address] Lizbeth Dean, [facility] [address] [place] [address] Health Maintenance Due Date Last Done Comments HPV (Gardasil) Vaccine (3 - 3-dose SCDM series) 06/22/2019 03/30/2019, 06/02/2018 Hepatitis B Vaccine (2 of 2 - CpG 2-dose series) 08/19/2023 07/22/2023 Influenza Vaccine (FLU shot) (#1) 2023 03/08/2021, 11/30/2016 Depression Screening 12/12/2024 12/13/2023, 11/26/2023, 07/22/2023 Pap Smear 11/17/2026 11/18/2023 Cervical Cancer Screening 11/17/2028 HPV/Co-Test 11/17/2028 11/18/2023 DTap/Tdap Vaccines (3 - Td or Tdap) 05/28/2032 05/28/2022, 03/01/2007 COVID-19 Vaccine Discontinued 12/29/2022, , 03/08/2021, Additional history exists MENINGOCOCCAL (MENACTRA/MENVEO) Aged Out No longer eligible [...] Primary documented in this encounter Care Teams Slumber Room Attendant Relationship Specialty Start Date End Date Glen Swenson MD [address] [place] [address] PCP - General Family Medicine 07/22/23 documented as of this encounter
--- OUTSIDE RECORDS SUMMARY | 2024-06-02 17:02 | External Medical Summary | Summary of Care ---
Author Name Unknown Organization [facility] Address [address] [place] [facility] [place] [address] Phone [phone] Care Team Providers Care Survey Data Technician Name Role Phone Glen Swenson MD Primary Care Provider Reason for Visit * Reason Onset Date Comments Return Visit Medication Administration 12/20/2023 Flu an d/or Pneumo Inj Encounter Details Date Type Department Care Team (Late st Contact Info) Description 12/20/2023 8:30 AM EDT Office Visit Gynecology/Obstetric s [facility] [address] [place] [address] Kerwin Alejandro MD [address] [place] [address] Need for prophylactic vaccination and inoculation against influenza* Allergies No known active allergiesdocumented as of this encounter (statuses as of 12/20/2023) Medications Medication Sig Dispensed Refills Start Date [...] as of this encounter (statuses as of 12/20/2023) Active Problems Estimated Date of Delivery Comme nts Yes 06/15/2024 Based on Ultraso und No known active problems documented as of this encounter (statuses as of 12/20/2023) Resolved Problems Problem Noted Date Diagnosed Date Resolved Date Depressive disorder 03/09/2016 07/22/19 24 documented as of this encounter (statuses as of 12/20/2023) Immunizations Name Administration Dates Next Due COVID-19 [...] Answer Date Recorded PHQ Adult Total Score 5 12/13/2023 Hunger Vital Sign Answer Date Recorded Within the past 12 months, y ou worried that your food would run out before you got the money to buy more. Never true 07/22/19 24 Within the past 12 months, t he food you bought just didn't last and you didn't have money to get more. Never true 07/22/2023 [place] Depression Scale Answer Date Recorded [place] Depression Scale Total 10 11/18/2023 The thought [...] on file documented as of this encounter Last Filed Vital Signs Vital Sign Reading Time Taken Comments Blood Pressure 106/70 12/20/2023 8:37 AM EDT Pulse - - Temperature - - Respiratory Rate - - Oxygen Saturation - - Inhaled Oxygen Concentration - - Weight 51.7 kg (114 lb) 12/20/2023 8:37 AM EDT Height - - Body Mass Index 21.39 07/22/2023 7:26 AM EDT documented in this encounter Progress Notes * Kerwin Alejandro MD - 12/20/2023 8:50 AM EDT Pt doing well No complaints FHR; 150's RTC 4 weeks * Jackelyn Whitten RN - 12/20/2023 8:38 AM EDT Desires flu shot. Denies any concerns. documented in this encounter Plan of Treatment Upcoming Encounters Date Type Department Care Team (Late st Contact Info) Description 12/27/2023 4:00 PM EDT Therapy Psychology [facility] [address] [place] [address] Lizbeth Dean LCSW [address] [place] [phone] 01/10/2024 4:00 PM EST Therapy Psychology [facility] [address] [place] [address] Lizbeth Dean LCSW [address] [place] [address] 01/21/2024 8:30 AM EST Office Visit Gynecology/Obstetrics [facility] [address] [place] [address] Maggie Monique CRNP [address] [place] [address] Health Maintenance Due Date Last Done Comments HPV (Gardasil) Vaccine (3 - 3-dose SCDM series) 06/22/2019 03/30/2019, 06/02/2018 Hepatitis B Vaccine (2 of 2 - CpG 2-dose series) 08/19/2023 07/22/2023 Depression Screening 12/12/2024 12/13/2023, 11/26/2023, 07/22/2023 Pap [...] as of this encounter Visit Diagnoses Diagnosis Need for prophylactic vaccination and inoculation against influenza- Primary documented in this encounter Care Teams Survey Data Technician Relationship Specialty Start Date End Date Glen Swenson MD [address] [place] [address] PCP - General Family Medicine 07/22/23 documented as of this encounter
--- OUTSIDE RECORDS SUMMARY | 2024-06-02 17:02 | External Medical Summary | Summary of Care ---
Author Name Unknown Organization [facility] Address [address] [place] [address] Phone [phone] Care Team Providers Care Retail Presentation Specialist Name Role Phone Glen Swenson MD Primary Care Provider Reason for Visit * Reason Comments Acute Cold since Wednesday. S ore throat, congestion, productive cough, headache, green mucus. 18 weeks Encounter Details Date Type Department Care Team (Late st Contact Info) Description 01/12/2024 10:40 AM EST Office Visit Family Practice [facility] [address] [place] [id number] Mejia Ruiz CRNP [address] [address] Viral URI with cough*; Encounter for supervision of normal first in first trimester Allergies No known active allergiesdocumented as of this encounter (statuses as of 01/12/2024) Medications Fluticasone Propionate 50 MCG/ACT Nasal Suspension [...] as of this encounter (statuses as of 01/12/2024) Active Problems Estimated Date of Delivery Comme nts Yes 06/15/2024 Based on Ultraso und No known active problems documented as of this encounter (statuses as of 01/12/2024) Resolved Problems Problem Noted Date Diagnosed Date Resolved Date Depressive disorder 03/09/2016 07/22/19 24 documented as of this encounter (statuses as of 01/12/2024) Immunizations Name Administration Dates Next Due COVID-19 [...] money to get more. Never true 07/22/2023 [place] Depression Scale Answer Date Recorded [place] Depression Scale Total 10 11/18/2023 The thought [...] Sign Reading Time Taken Comments Blood Pressure 108/60 01/12/2024 10:46 AM EST Pulse 100 01/12/2024 10:46 AM EST Temperature 37.1 °C (98.7 °F) 01/12/2024 10:[address] Respiratory Rate - - Oxygen Saturation 98% 01/12/2024 10:46 AM EST Inhaled Oxygen Concentration - - Weight - - Height - - Body Mass Index - - documented in this encounter Progress Notes * Mejia Ruiz CRNP - 01/12/2024 10:42 AM EST Images from the original note were not included. URI Family Medicine Visit History of Present Illness CC: Chief Complaint Patient presents with Acute Cold since Wednesday. Sore throat, congestion, productive cough, headache, green mucus. 18 weeks Malou Hernandez is a very pleasant 33 year old female with above complaints x 6 days. Symptoms are better starting today. Previous lung disease: EIA, non smoker Has tried OTC robitussin with some relief. -fever, t max - -chills -sweats +decreased appetite +tolerating fluids +FIGUEREDO +congestion -loss of taste or smell +runny nose +PND +ear pressure, no pain +sore throat +cough +productive of mucous -sob -wheezing -nausea -diarrhea -constipation -vomiting -body aches -Rash +Sleep disruption -Covid Past Medical History: Diagnosis Date Anxiety reconcilled from [facility] Asthma reconcilled from [facility] Depressive disorder 03/09/2016 GERD (gastroesophageal reflux disease) reconcilled from [facility] Social History Socioeconomic History Marital status: Spouse name: Not on file Number of children: Not on file Years of education: Not on file Highest education level: Not on file Occupational History Not on file Tobacco Use Smoking status: Never Passive exposure: Never Smokeless tobacco: Never Substance and Sexual Activity Alcohol use: Not Currently Alcohol/week: 1.0 standard drink of alcohol Types: 1 12 oz of beer per week Drug use: Never Sexual activity: Yes Partners: Male Other Topics Concern Not on file Social History Narrative Not on file Social Needs Financial Resource Strain: Low Risk (07/22/2023) Financial Resource Strain Do you have any trouble paying for your medications, or do you think you might in the future? (Adult - for ages 18 years and over): No Does your family have trouble paying for medicine? (Household - for ages 0-17 years): Not on file Food Insecurity: No Food Insecurity (07/22/2023) Food Insecurity Do you need food for this week? (Adult - for ages 18 years and over): No Are you able to get enough food for your family? (Household - for ages 0-17 years): Not on file Does your family need food this week? (Household - for ages 0-17 years): Not on file Do you always have enough food for your family? (Household - for ages 0-17 years): Not on file Transportation Needs: No Transportation Needs (07/22/2023) Transportation Needs Do you have trouble getting a ride to medical visits or work? (Adult - for ages 18 years and over):Never True Does your family have a hard time getting a ride to doctors’ visits? (Household - for ages 0-17 years): Not on file Has lack of transportation kept you from medical appointments, meetings, work, or from getting things needed for daily living? Check all that apply. (Adult - for ages 18 years and over): Not on file Do you (or your family) have trouble finding or paying for a ride (transportation)? (Household - for ages 0-17 years): Not on file Social Connections: Socially Integrated (07/22/2023) Social Connections How often do you feel lonely or isolated from those around you? (Adult - for ages 18 years and over): Never Housing Stability: Low Risk (07/22/2023) Housing Stability Do you currently live in a residential or have no steady place to sleep at night? (Adult - for ages 18 years and over): No Do you think you are at risk of becoming homeless? (Adult - for ages 18 years and over): No Does your family worry about paying for your home or becoming homeless? (Household - for ages 0-17 years): Not on file Are you homeless or worried that you might be in the future? (Adult - for ages 18 years and over): Not on file Are you (or your family) homeless or worried that you might be in the future? (Household - for ages0-17 years): Not on file PMH: Past Medical History: Diagnosis Date Anxiety reconcilled from [facility] Asthma reconcilled from [facility] Depressive disorder 03/09/2016 GERD (gastroesophageal reflux disease) reconcilled from [facility] Past Surgical History: Procedure Laterality Date MI TONSILLECTOMY PRIMARY/SECONDARY AGE 12 OR MORE reconcilled from [facility] Current Outpatient Medications Medication Sig Dispense Refill Complete Oral Capsule Therapy Pack Take by mouth. Fluticasone Propionate 50 MCG/ACT Nasal Suspension (Flonase) Administer 2 Sprays into nostril dailyas needed for Allergies. Vitamin D3 75 MCG (3000 UT) Oral Tablet Take 1 Tablet by mouth in the morning. (Patient not taking:Reported on 01/12/2024) No current facility-administered medications for this visit. Review of patient's allergies indicates: No Known Allergies Most Recent Immunizations Administered Date(s) Administered COVID-19 mRNA, LNP-s, No Preserve, 2-Dose Series (RegulatoryBinder) 06/24/2020 Covid-19, Mrna, Lnp-s, Pf, Bivalent, 10 Mcg, IM, 5-11 yrs (Pfizer) 12/29/2022 Covid-19, Mrna, Lnp-s, Pf, Bivalent, 30 Mcg, IM, 12 yrs and above (Pfizer) 03/08/2021 HEPATITIS B VACCINE, RECOMB, 20 MCG/ML, ADULT (HEPLISAV-B) 07/22/2023 HPV Vaccine, 9-Valent 03/30/2019 Seasonal Influenza, QUAD, with Preserv, 6 mons & Above, 0.5 mL, IM 03/08/2021 Seasonal Influenza, Trivalent, (IIV3), PF, (Fluzone) 12/20/2023 TDAP (age 10 and older)(Boostrix) 05/28/2022 Review of Systems: Physical Exam LMP 09/01/2023 (Approximate) Physical Exam Constitutional: Appearance: Normal appearance. HENT: Head: Normocephalic. Right Ear: Tympanic membrane, ear canal and external ear normal. Left Ear: Tympanic membrane, ear canal and external ear normal. Nose: Mucosal edema and rhinorrhea present. Rhinorrhea is clear. Right Sinus: No maxillary sinus tenderness or frontal sinus tenderness. Left Sinus: No maxillary sinus tenderness or frontal sinus tenderness. Mouth/Throat: Pharynx: No posterior oropharyngeal erythema. Cardiovascular: Rate and Rhythm: Normal rate and regular rhythm. Pulmonary: Effort: Pulmonary effort is normal. Breath sounds: Normal breath sounds. Musculoskeletal: Cervical back: Neck supple. Skin: General: Skin is warm. Neurological: Mental Status: She is alert and oriented to person, place, and time. Psychiatric: Mood and Affect: Mood normal. Assessment and Plan 1. Viral URI with cough Day 5, slightly improving Cont supportive care, coricidin OTC, neti pot, Flonase Amoxicillin Rx give to start if worsening s/sx or fever over the weekend 2. Encounter for supervision of normal first in first trimester noted Wrap-Up Recommend supportive care including: Humidifier Rest Push fluids Reviewed pathophysiology of viral URI Recommend handwashing and covering cough Reviewed signs and symptoms in which to seek medical care I have advised the patient to call our office incase of any worsening or new symptoms. A total of 20 minutes were spent with the patient, more than half in [id number] explanation and discussion of the condition and treatment and answering questions. Mejia Ruiz, MSN, [facility] documented in this encounter Nursing Notes * Katelin Lobato Student - 01/12/2024 10:46 AM EST The patient has been properly identified by confirmation of name and date of . Chief Complaint Patient presents with Acute Cold since Wednesday. Sore throat, congestion, productive cough, headache, green mucus. 18 weeks documented in this encounter Plan of Treatment Upcoming Encounters Date Type Department Care Team (Late st Contact Info) Description 01/21/2024 8:30 AM EST Office Visit Gynecology/Obstetrics [facility] [address] [place] [id number] Maggie Monique CRNP [address] [place] [address] 02/04/2024 3:00 PM EST Therapy Psychology [facility] [address] [place] [phone] Lizbeth Dean, RETAIL ADVERTISING EXECUTIVE [address] [place] [address] Health Maintenance Due Date Last Done Comments [...] as of this encounter Visit Diagnoses Diagnosis Viral URI with cough- Primary Acute upper respiratory infections of unspecified site Encounter for supervision of normal first in first trimester Supervision of normal first documented in this encounter Care Teams Retail Presentation Specialist Relationship Specialty Start Date End Date Glen Swenson MD [address] [place] [id number] PCP - General Family Medicine 07/22/23 documented as of this encounter
--- OUTSIDE RECORDS SUMMARY | 2024-06-02 17:02 | External Medical Summary | Summary of Care ---
Author Name Unknown Organization [facility] Address [address] [place] [address] Phone [phone] Care Team Providers Care Media Account Executive Name Role Phone Glen Swenson MD Primary Care Provider Reason for Visit * Reason Comments Psychotherapy Encounter Details Date Type Department Care Team (Late st Contact Info) Description 12/27/2023 4:00 PM EDT Therapy Psychology [facility] [address] [place] [address] Lizbeth Dean, [facility] [address] [phone] Adjustment disorder with mixed anxiety and depressed mood* Allergies No known active allergiesdocumented as of this encounter (statuses as of 12/27/2023) Medications Medication Sig Dispensed Refills Start Date [...] as of this encounter (statuses as of 12/27/2023) Active Problems Estimated Date of Delivery Comme nts Yes 06/15/2024 Based on Ultraso und No known active problems documented as of this encounter (statuses as of 12/27/2023) Resolved Problems Problem Noted Date Diagnosed Date Resolved Date Depressive disorder 03/09/2016 07/22/19 24 documented as of this encounter (statuses as of 12/27/2023) Immunizations Name Administration Dates Next Due COVID-19 [...] money to get more. Never true 07/22/2023 [place] Depression Scale Answer Date Recorded [place] Depression Scale Total 10 11/18/2023 The thought [...] No 07/22/2023 Does the household have a [facility] source [facility] income? (Household - for [...] Progress Notes * Lizbeth Dean, PHIL - 12/27/2023 4:07 PM EDT PRIMARY CARE BEHAVIORAL HEALTH FOLLOW-UP 12/27/2023 Length of visit: 50 minutes (4:15 pm - 5:05 pm) Type of Visit: individual Treatment session number: 3 AGENDA & ACTION PLAN: -Check in-Malou provided update of her situation. -Today therapist addressed self esteem issues as we addressed Malou's tendency to have negative self talk. We identified critical voice, Malou gave voice a name. We discussed strengths as Malou identified her strengths and good qualities. We took time to process and explore each one. Therapist thandiscussed with Malou the use of turing negative self talk into re-framing and looking for just factual information. We practiced in session. -Therapist did provide Malou a grounding/mindfulness exercise for management of anxiety. We did together in session. Optional: Interventions addressed in treatment thus far: Treatment/Intervention Visit 12/27/2023 1 2 3 4 5 6 Behavioral activation Behavior modification for poor health behaviors (e.g., smoking cessation) Breathing re-training mindfulness training x Cognitive restructuring/diffusion x Exercise/physical activity Problem-solving Psychoeducation x Exposure and/or response prevention Supportive therapy Sleep hygiene Stimulus control Time in bed [...] agreed to return for further psychotherapy. Adjustment Disorder with mixed anxiety and depressed mood. RETURN 2 WEEKS for individual cognitive behavioral therapy. Lizbeth Dean LCSW Primary Care Behavioral Health Psychology [facility] [address] [place] [id number] documented in this encounter Plan of Treatment Upcoming Encounters Date Type Department Care Team (Late st Contact Info) Description 01/10/2024 4:00 PM EST Therapy Psychology [facility] [address] [address] Lizbeth Dean LCSW [address] [phone] 01/21/2024 8:30 AM EST Office Visit Gynecology/Obstetrics [facility] [address] [address] Maggie Monique CRNP [address] [place] [address] 02/04/2024 3:00 PM EST Therapy Psychology [facility] [address] [place] [address] Lizbeth Dean, [facility] [address] [place] [address] Health Maintenance Due Date Last Done Comments [...] Primary documented in this encounter Care Teams Media Account Executive Relationship Specialty Start Date End Date Glen Swenson MD [address] [place] [address] PCP - General Family Medicine 07/22/23 documented as of this encounter
--- NOTE | 2024-06-02 17:27 | Obstetrical Progress Note ---
Date of Service June 02, 2024 Subjective Patient is reevaluated. She received IV Stadol once and it helped for the pain which decreased from 8 to 4/10, but unable to sleep. She told she had another gush of leakage which was confirmed by bedside nurse that it was mucousy discharge, nitrazine negative. Gram stain is negative no clue cells, routine cultures pending. She started to have painful contractions again since Stadol wore off. Pain is back to 8 out of 10 she cannot sleep. I checked her cervix is now 2 cm dilated, motivates about 40%, felt bulging bag head is high. Discussed the findings as prolonged latent phase offered her admission, epidural, augmentation with oxytocin AROM and delivered baby. Patient desires expectant management for now and wants to get another dose of Stadol and continued IV fluids and then see what happens. Continue to monitor closely. Results & Data Vital Signs (Past 12 Hours) Vital Signs Temp Pulse Resp BP Pulse Ox 06/02/24 17:14 97 06/02/24 17:14 99 H 06/02/24 17:09 97 06/02/24 17:09 100 H 06/02/24 17:04 95 06/02/24 17:04 79 06/02/24 16:59 95 06/02/24 16:59 73 06/02/24 16:54 97 06/02/24 16:54 89 06/02/24 16:49 96 06/02/24 16:49 74 06/02/24 16:45 18 06/02/24 16:45 18 06/02/24 16:44 94 06/02/24 16:44 89 06/02/24 16:39 95 06/02/24 16:39 80 06/02/24 16:34 96 06/02/24 16:34 76 06/02/24 16:29 94 06/02/24 16:29 81 06/02/24 16:24 95 06/02/24 16:24 85 06/02/24 16:19 97 06/02/24 16:19 102 H 06/02/24 16:15 18 06/02/24 16:15 18 06/02/24 16:14 92 06/02/24 16:14 79 06/02/24 16:09 96 06/02/24 16:09 81 06/02/24 16:04 98 06/02/24 16:04 111 H 06/02/24 15:59 97 06/02/24 15:59 83 06/02/24 15:54 96 06/02/24 15:54 84 06/02/24 15:49 97 06/02/24 15:49 89 06/02/24 15:44 96 06/02/24 15:44 75 06/02/24 15:39 95 06/02/24 15:39 83 06/02/24 15:34 96 06/02/24 15:34 94 H 06/02/24 15:29 99 06/02/24 15:29 110 H 06/02/24 15:29 119/61 06/02/24 15:18 96 06/02/24 15:18 104 H 06/02/24 15:15 20 06/02/24 15:15 20 06/02/24 15:13 95 06/02/24 15:13 97 H 06/02/24 15:08 95 06/02/24 15:08 100 H 06/02/24 15:03 95 06/02/24 15:03 96 H 06/02/24 14:58 95 06/02/24 14:58 97 H 06/02/24 14:53 95 06/02/24 14:53 93 H 06/02/24 14:48 95 06/02/24 14:48 92 H 06/02/24 14:45 18 06/02/24 14:45 18 06/02/24 14:43 94 06/02/24 14:43 95 H 06/02/24 14:38 96 06/02/24 14:38 93 H 06/02/24 14:33 94 06/02/24 14:33 96 H 06/02/24 14:28 95 06/02/24 14:28 86 06/02/24 14:23 95 06/02/24 14:23 89 06/02/24 14:18 95 06/02/24 14:18 86 06/02/24 14:15 18 06/02/24 14:15 18 06/02/24 14:13 96 06/02/24 14:13 107 H 06/02/24 14:08 95 06/02/24 14:08 83 06/02/24 14:03 95 06/02/24 14:03 85 04/04/25 13:58 96 06/02/24 13:58 102 H 06/02/24 13:53 94 06/02/24 13:53 85 06/02/24 13:48 97 06/02/24 13:48 92 H 06/02/24 13:44 82 06/02/24 13:44 119/66 06/02/24 13:43 97 06/02/24 13:43 88 06/02/24 11:30 36.6 C 06/02/24 11:12 86 06/02/24 11:12 114/60 06/02/24 09:48 36.7 C 20 06/02/24 09:39 90 118/71
[2024-06-02] MEDS ORDERED: LIDOCAINE 1% LOCAL 20 ML VIAL INFIL PRN (18:41)
[2024-06-02] MEDS ORDERED: ACETAMINOPHEN 500 MG TAB PO PRN (18:41)
[2024-06-02] MEDS ORDERED: OXYTOCIN 30 UNITS/NSS 30 UNITS/500 ML BAG IV PRN (18:41)
--- NOTE | 2024-06-02 18:45 | Obstetrical Progress Note ---
Date of Service June 02, 2024 Subjective Patient is still very painful, decided to be admitted and have epidural for pain and augment labor Orders are placed. FHR categ I Continue to monitor closely Results & Data Vital Signs (Past 12 Hours) Vital Signs Temp Pulse Resp BP Pulse Ox 06/02/24 17:15 18 06/02/24 17:15 18 06/02/24 17:14 97 06/02/24 17:14 99 H 06/02/24 17:09 97 06/02/24 17:09 100 H 06/02/24 17:04 95 06/02/24 17:04 79 06/02/24 16:59 95 06/02/24 16:59 73 06/02/24 16:54 97 06/02/24 16:54 89 06/02/24 16:49 96 06/02/24 16:49 74 06/02/24 16:45 18 06/02/24 16:45 18 06/02/24 16:44 94 06/02/24 16:44 89 06/02/24 16:39 95 06/02/24 16:39 80 06/02/24 16:34 96 06/02/24 16:34 76 06/02/24 16:29 94 06/02/24 16:29 81 06/02/24 16:24 95 06/02/24 16:24 85 06/02/24 16:19 97 06/02/24 16:19 102 H 06/02/24 16:15 18 06/02/24 16:15 18 06/02/24 16:14 92 06/02/24 16:14 79 06/02/24 16:09 96 06/02/24 16:09 81 06/02/24 16:04 98 06/02/24 16:04 111 H 06/02/24 15:59 97 06/02/24 15:59 83 06/02/24 15:54 96 06/02/24 15:54 84 06/02/24 15:49 97 06/02/24 15:49 89 06/02/24 15:44 96 06/02/24 15:44 75 06/02/24 15:39 95 06/02/24 15:39 83 06/02/24 15:34 96 06/02/24 15:34 94 H 06/02/24 15:29 99 06/02/24 15:29 110 H 06/02/24 15:29 119/61 06/02/24 15:18 96 06/02/24 15:18 104 H 06/02/24 15:15 20 06/02/24 15:15 20 06/02/24 15:13 95 06/02/24 15:13 97 H 06/02/24 15:08 95 06/02/24 15:08 100 H 06/02/24 15:03 95 06/02/24 15:03 96 H 06/02/24 14:58 95 06/02/24 14:58 97 H 06/02/24 14:53 95 06/02/24 14:53 93 H 06/02/24 14:48 95 06/02/24 14:48 92 H 06/02/24 14:45 18 06/02/24 14:45 18 06/02/24 14:43 94 06/02/24 14:43 95 H 06/02/24 14:38 96 06/02/24 14:38 93 H 06/02/24 14:33 94 06/02/24 14:33 96 H 06/02/24 14:28 95 06/02/24 14:28 86 06/02/24 14:23 95 06/02/24 14:23 89 06/02/24 14:18 95 06/02/24 14:18 86 06/02/24 14:15 18 06/02/24 14:15 18 06/02/24 14:13 96 06/02/24 14:13 107 H 06/02/24 14:08 95 06/02/24 14:08 83 06/02/24 14:03 95 06/02/24 14:03 85 06/02/24 13:58 96 06/02/24 13:58 102 H 06/02/24 13:53 94 06/02/24 13:53 85 06/02/24 13:48 97 06/02/24 13:48 92 H 06/02/24 13:44 82 06/02/24 13:44 119/66 06/02/24 13:43 97 06/02/24 13:43 88 06/02/24 11:30 36.6 C 06/02/24 11:12 86 06/02/24 11:12 114/60 06/02/24 09:48 36.7 C 20 06/02/24 09:39 90 118/71
[2024-06-02] MEDS: LACTATED RINGER'S 1,000 ML IV PRN (19:13)
[2024-06-02 19:21] LABS: Hematocrit (blood only) 36.1 % (37.0-47.0); Hemoglobin 12.3 g/dl (12.0-16.0); Mean Corpuscular Hemoglobin 31.4 pg (25.0-34.0); Mean Corpuscular Hgb Conc 34.1 g/dL (32.0-36.0); Mean Corpuscular Volume 92.1 fL (80.0-100.0); Mean Platelet Volume 11.1 fL (9.4-12.4); Platelet Count 184 K/uL (130-400); RDW Coefficient of Variation 13.4 % (11.5-14.5); RDW Standard Deviation 45.1 fL (36.4-46.3); Red Blood Count 3.92 M/uL (4.20-5.40); White Blood Count 14.98 K/ul (4.8-10.8)
[2024-06-02 19:25] LABS: Albumin Globulin Ratio 1.5 (0.9-2); Albumin Level 3.3 gm/dl (3.4-5.0); BUN Creatinine Ratio 15.6 (10-20); Bilirubin,Total 0.4 mg/dl (0.2-1.0); Calcium 8.7 mg/dl (8.6-10.3); Creatinine Clr Calc Pharmacy 105.4 ml/min; Globulin 2.2 gm/dl (2.5-4.0); Potassium 3.8 mmol/L (3.5-5.1); Total Protein 5.5 gm/dl (6.0-8.3)
[2024-06-02] MEDS ORDERED: BUPIVACAINE 0.25% PF 30 ML VIAL EPI PRN (19:32)
[2024-06-02] MEDS ORDERED: LIDOCAINE 2% MPF LOCAL 5 ML VIAL EPI PRN (19:32)
[2024-06-02] MEDS ORDERED: ePHEDrine sulfate 50 MG/ML AMP IV PRN (19:32)
[2024-06-02] MEDS ORDERED: SODIUM CHLORIDE 0.9% PF INJ 10 ML VIAL EPI PRN (19:32)
[2024-06-02] MEDS ORDERED: NALBUPHINE HCL INJ 10 MG/ML AMP IV PRN (19:32)
[2024-06-02] MEDS ORDERED: fentaNYL citrate PF 100 MCG/2 ML VIAL EPI PRN (19:32)
[2024-06-02] MEDS ORDERED: NALOXONE HCL 0.4 MG/1 ML VIAL/CARP IV PRN (19:32)
[2024-06-02] MEDS ORDERED: diphenhydrAMINE 50 MG/ML VIAL IV PRN (19:32)
[2024-06-02] MEDS ORDERED: ROPIVACAINE 0.5% PF 5 MG/ML 20 ML VIAL EPI PRN (19:32)
[2024-06-02] MEDS ORDERED: NALOXONE HCL 1 MG in SODIUM CHLORIDE 0.9% 1,000 ML IV PRN (19:32)
--- NOTE | 2024-06-02 19:32 | Anesthesiology Consultation ---
Date of Service June 02, 2024 Assessment & Plan Chart Review Chart Review: Patient NOT seen in Pre Admission Testing and Acceptable Risk for Labor Epidural Consults Requested none ASA ASA2 Proposed Anesthesia Anesthesia Type: Labor Epidural Risk / Benefits Reviewed With: PT / POA / Parent / Guardian, Accepts Plan and Informed Consent Obtained History Height/Weight Height: 5 ft 1 in Weight: 63.049 kg Allergies Allergy/AdvReac Type Severity Reaction Status Date / Time No Known Allergies Allergy Unverified 06/02/24 09:45 Medications Home Medications Medication Instructions Recorded Confirmed Last Taken vits no.124-ferrous fum 1 tab 06/02/24 06/01/24 27 mg iron-folic acid 800 mcg tablet ( Vitamin) Active Medications Generic Name Dose Route Start Last Admin Trade Name Freq PRN Reason Stop Dose Admin Lactated Ringer's 1,000 mls @ 500 mls/hr 06/02/24 13:15 06/02/24 16:19 Lr IV 06/03/24 13:14 500 mls/hr .Q2H KRYSTEN Administration Lactated Ringer's 1,000 mls @ 125 mls/hr 06/02/24 18:41 06/02/24 19:13 Lr IV 06/03/24 18:40 125 mls/hr .Q8H PRN Administration L&D Protocol Protocol NPO Date Last Intake of Fluids: 06/02/24 Time Last Intake of Fluids: 19:00 Date Last Intake of Solids: 06/02/24 Time Last Intake of Solids: 17:30 Past Medical History Medical History GERD (gastroesophageal reflux disease) Gestational diabetes Anxiety Asthma Exercise / Class Metabolic Activity 1 > 8 Run/Swim/Ski/Tennis Past Surgical History Surgical History History of tonsillectomy Past Anesthesia History No Hx of Anesthesia Complications and No Family Hx of Anesthesia Complications History of PONV No Hx of PONV and No Hx of Motion Sickness Social History Smoking Status: Never smoker Hx Alcohol Use: No Hx Substance Use: No Review of Systems ROS Unobtainable: All systems reviewed & are unremarkable except as noted in HPI & below Physical Exam Vital Signs Last Vital Signs Temp 36.7 C 06/02/24 19:08 Pulse 99 H 06/02/24 19:12 Resp 18 06/02/24 19:08 BP 122/87 06/02/24 19:12 Pulse Ox 97 06/02/24 17:14 O2 Del Method Room Air 06/02/24 19:08 ENMT Mouth: no TMJ abnormality Thyromental Distance: > or= 3.5 Finger Breadths Mallampati Class: II Neck normal visual inspection and trachea midline; neck extension not limited Respiratory normal respiratory effort Auscultation: lungs clear to auscultation bilaterally Cardiovascular Rate/Rhythm: regular rate and regular rhythm Heart Sounds: no murmur Musculoskeletal Spine: normal cervical ROM Extremities: full ROM of extremities Neurologic moves all extremities Psychiatric Orientation: alert and oriented x 3 Testing Laboratory Results 06/02/24 18:54 06/02/24 18:51 06/02/24 Unknown Gram Stain - Final Vaginal
[2024-06-02] MEDS: fentANYL 2 MCG/ML BUPIVacaine 0.125%-NSS 100ML BAG ONE (19:54)
[2024-06-02] MEDS: SODIUM CHLORIDE 0.9% PF INJ 10 ML VIAL ONE (19:56)
[2024-06-02] MEDS: BUPIVACAINE 0.25% PF 30 ML VIAL ONE (19:56)
[2024-06-02] MEDS: ePHEDrine sulfate 50 MG/ML AMP ONE (20:10)
[2024-06-02] MEDS: fentaNYL citrate PF 100 MCG/2 ML VIAL ONE (20:10)
[2024-06-02] MEDS: LIDOCAINE 2%/EPINEPHRINE 1:200,000 20 ML PF ONE (20:10)
[2024-06-02] MEDS: LIDOCAINE 2%/EPINEPHRINE 1:200,000 20 ML PF EPI STA (20:11)
[2024-06-02] MEDS: SODIUM CHLORIDE 0.9% PF INJ 10 ML VIAL EPI STA (20:11)
[2024-06-02] MEDS: BUPIVACAINE 0.25% PF 30 ML VIAL EPI STA (20:11)
[2024-06-02] MEDS: fentaNYL citrate PF 100 MCG/2 ML VIAL EPI STA (20:11)
[2024-06-02] MEDS: OXYTOCIN 30 UNITS/NSS 30 UNITS/500 ML BAG IV PRN (20:43)
--- NOTE | 2024-06-02 21:02 | Obstetrical Progress Note ---
Date of Service June 02, 2024 Subjective Patient is admitted, received epidural uncomfortable now. heart rate category 1, contractions spaced to every 6 to 7 minutes. Oxytocin is just started now at 2 mL internation per minute, Vaginal exam cervix is 4 cm dilated, 80% effaced, with a large bulging bag, AROM clear fluid was obtained, head is at -1, Continue to monitor closely, anticipate Results & Data Vital Signs (Past 12 Hours) Vital Signs Temp Pulse Resp BP Pulse Ox O2 Del Method 06/02/24 20:56 97 06/02/24 20:56 74 06/02/24 20:51 98 06/02/24 20:51 82 06/02/24 20:47 90 06/02/24 20:47 113/66 06/02/24 20:46 100 06/02/24 20:46 89 06/02/24 20:41 100 06/02/24 20:41 91 H 06/02/24 20:36 100 06/02/24 20:36 86 06/02/24 20:33 80 06/02/24 20:33 109/64 06/02/24 20:31 100 06/02/24 20:31 74 06/02/24 20:26 100 06/02/24 20:26 88 06/02/24 20:21 100 06/02/24 20:21 81 06/02/24 20:17 75 06/02/24 20:17 114/66 06/02/24 20:16 100 06/02/24 20:16 73 06/02/24 20:11 100 06/02/24 20:11 106 H 06/02/24 20:06 100 06/02/24 20:06 105 H 06/02/24 20:02 86 06/02/24 20:02 119/65 06/02/24 20:01 100 06/02/24 20:01 89 06/02/24 20:00 92 H 06/02/24 20:00 114/67 06/02/24 19:58 88 06/02/24 19:58 107/61 06/02/24 19:56 99 06/02/24 19:56 87 06/02/24 19:56 115/65 06/02/24 19:54 88 06/02/24 19:54 113/67 06/02/24 19:51 100 06/02/24 19:51 87 06/02/24 19:50 95 H 06/02/24 19:50 121/80 06/02/24 19:48 78 06/02/24 19:48 118/76 06/02/24 19:46 98 06/02/24 19:46 78 06/02/24 19:41 95 06/02/24 19:41 118 H 06/02/24 19:40 106 H 06/02/24 19:40 111/76 06/02/24 19:36 98 06/02/24 19:36 82 06/02/24 19:12 18 06/02/24 19:12 36.7 C 18 06/02/24 19:12 99 H 06/02/24 19:12 122/87 06/02/24 19:08 36.7 C 18 06/02/24 19:08 Room Air 06/02/24 17:15 18 06/02/24 17:15 18 06/02/24 17:14 97 06/02/24 17:14 99 H 06/02/24 17:09 97 06/02/24 17:09 100 H 06/02/24 17:04 95 06/02/24 17:04 79 06/02/24 16:59 95 06/02/24 16:59 73 06/02/24 16:54 97 06/02/24 16:54 89 06/02/24 16:49 96 06/02/24 16:49 74 06/02/24 16:45 18 06/02/24 16:45 18 06/02/24 16:44 94 06/02/24 16:44 89 06/02/24 16:39 95 06/02/24 16:39 80 06/02/24 16:34 96 06/02/24 16:34 76 06/02/24 16:29 94 06/02/24 16:29 81 06/02/24 16:24 95 06/02/24 16:24 85 06/02/24 16:19 97 06/02/24 16:19 102 H 06/02/24 16:15 18 06/02/24 16:15 18 06/02/24 16:14 92 06/02/24 16:14 79 06/02/24 16:09 96 06/02/24 16:09 81 06/02/24 16:04 98 06/02/24 16:04 111 H 06/02/24 15:59 97 06/02/24 15:59 83 06/02/24 15:54 96 06/02/24 15:54 84 06/02/24 15:49 97 06/02/24 15:49 89 06/02/24 15:44 96 06/02/24 15:44 75 06/02/24 15:39 95 06/02/24 15:39 83 06/02/24 15:34 96 06/02/24 15:34 94 H 06/02/24 15:29 99 06/02/24 15:29 110 H 06/02/24 15:29 119/61 06/02/24 15:18 96 06/02/24 15:18 104 H 06/02/24 15:15 20 06/02/24 15:15 20 06/02/24 15:13 95 06/02/24 15:13 97 H 06/02/24 15:08 95 06/02/24 15:08 100 H 06/02/24 15:03 95 06/02/24 15:03 96 H 06/02/24 14:58 95 06/02/24 14:58 97 H 06/02/24 14:53 95 06/02/24 14:53 93 H 06/02/24 14:48 95 06/02/24 14:48 92 H 06/02/24 14:45 18 06/02/24 14:45 18 06/02/24 14:43 94 06/02/24 14:43 95 H 06/02/24 14:38 96 06/02/24 14:38 93 H 06/02/24 14:33 94 06/02/24 14:33 96 H 06/02/24 14:28 95 06/02/24 14:28 86 06/02/24 14:23 95 06/02/24 14:23 89 06/02/24 14:18 95 06/02/24 14:18 86 06/02/24 14:15 18 06/02/24 14:15 18 06/02/24 14:13 96 06/02/24 14:13 107 H 06/02/24 14:08 95 06/02/24 14:08 83 06/02/24 14:03 95 06/02/24 14:03 85 06/02/24 13:58 96 06/02/24 13:58 102 H 06/02/24 13:53 94 06/02/24 13:53 85 06/02/24 13:48 97 06/02/24 13:48 92 H 06/02/24 13:44 82 06/02/24 13:44 119/66 06/02/24 13:43 97 06/02/24 13:43 88 06/02/24 11:30 36.6 C 06/02/24 11:12 86 06/02/24 11:12 114/60 06/02/24 09:48 36.7 C 20 06/02/24 09:39 90 118/71
--- NOTE | 2024-06-03 02:10 | Obstetrical Progress Note ---
Date of Service June 03, 2024 Assessment & Plan Admission and Anticipated Discharge Date Admission Date: June 02, 2024 Subjective Patient is reevaluated. FHR had variable decels with and after some of the contractions, with quick spontaneous recovery to baseline., moderate variality and accelerations present VE: 5/ 80%, head is low 0 to +1 with contraction, cervix feels swollen on anterior lip, blood tinged amniotic fluids Patient is sitting up in high fowlers position, Continue to monitor closely Results & Data Vital Signs (Past 12 Hours) Vital Signs Temp Pulse Resp BP Pulse Ox O2 Del Method 06/03/24 02:06 98 H 97 06/03/24 02:04 92 H 118/61 06/03/24 02:01 89 97 06/03/24 02:00 18 06/03/24 02:00 18 06/03/24 01:56 104 H 96 06/03/24 01:51 91 H 97 06/03/24 01:48 86 118/65 06/03/24 01:46 97 H 97 06/03/24 01:41 107 H 96 06/03/24 01:36 90 97 06/03/24 01:33 101 H 119/66 06/03/24 01:31 103 H 96 06/03/24 01:30 18 06/03/24 01:30 18 06/03/24 01:26 103 H 97 06/03/24 01:21 104 H 96 06/03/24 01:18 82 101/53 L 06/03/24 01:16 95 H 96 06/03/24 01:11 101 H 95 06/03/24 01:06 91 H 95 06/03/24 01:04 90 103/57 L 06/03/24 01:01 97 H 96 06/03/24 01:00 16 06/03/24 01:00 36.8 C 16 06/03/24 00:56 89 95 06/03/24 00:51 81 97 06/03/24 00:49 85 102/55 L 06/03/24 00:46 87 96 06/03/24 00:41 84 96 06/03/24 00:36 97 H 97 06/03/24 00:34 94 H 92/50 L 06/03/24 00:31 105 H 97 06/03/24 00:30 18 06/03/24 00:30 18 06/03/24 00:26 90 96 06/03/24 00:21 91 H 97 06/03/24 00:17 87 107/62 06/03/24 00:16 96 H 96 06/03/24 00:11 94 H 96 06/03/24 00:06 89 96 06/03/24 00:04 88 109/66 06/03/24 00:01 99 H 97 06/03/24 00:00 16 06/03/24 00:00 16 06/02/24 23:56 96 06/02/24 23:56 89 06/02/24 23:51 96 06/02/24 23:51 93 H 06/02/24 23:49 93 H 06/02/24 23:49 111/63 06/02/24 23:46 97 06/02/24 23:46 92 H 06/02/24 23:41 96 06/02/24 23:41 91 H 06/02/24 23:36 96 06/02/24 23:36 89 06/02/24 23:32 86 06/02/24 23:32 109/64 06/02/24 23:31 96 06/02/24 23:31 103 H 06/02/24 23:30 18 06/02/24 23:30 18 06/02/24 23:26 97 06/02/24 23:26 100 H 06/02/24 23:21 97 06/02/24 23:21 93 H 06/02/24 23:18 92 H 06/02/24 23:18 115/65 06/02/24 23:16 97 06/02/24 23:16 95 H 06/02/24 23:11 97 06/02/24 23:11 96 H 06/02/24 23:06 96 06/02/24 23:06 85 06/02/24 23:03 103 H 06/02/24 23:03 132/95 06/02/24 23:01 98 06/02/24 23:01 117 H 06/02/24 23:00 18 06/02/24 23:00 36.8 C 18 06/02/24 22:56 98 06/02/24 22:56 88 06/02/24 22:51 97 06/02/24 22:51 94 H 06/02/24 22:47 96 H 06/02/24 22:47 95/54 L 06/02/24 22:46 96 06/02/24 22:46 100 H 06/02/24 22:41 97 06/02/24 22:41 87 06/02/24 22:36 96 06/02/24 22:36 106 H 06/02/24 22:33 87 06/02/24 22:33 92/51 L 06/02/24 22:31 97 06/02/24 22:31 85 06/02/24 22:30 16 06/02/24 22:30 16 06/02/24 22:26 96 06/02/24 22:26 90 06/02/24 22:21 95 06/02/24 22:21 98 H 06/02/24 22:18 81 06/02/24 22:18 91/55 L 06/02/24 22:16 95 06/02/24 22:16 97 H 06/02/24 22:11 96 06/02/24 22:11 92 H 06/02/24 22:06 96 06/02/24 22:06 92 H 06/02/24 22:02 85 06/02/24 22:02 90/55 L 06/02/24 22:01 96 06/02/24 22:01 88 06/02/24 22:00 18 06/02/24 22:00 18 06/02/24 21:56 96 06/02/24 21:56 89 06/02/24 21:51 96 06/02/24 21:51 84 06/02/24 21:47 90 06/02/24 21:47 91/50 L 06/02/24 21:46 97 06/02/24 21:46 89 06/02/24 21:41 97 06/02/24 21:41 89 06/02/24 21:36 98 06/02/24 21:36 86 06/02/24 21:32 81 06/02/24 21:32 97/55 L 06/02/24 21:31 98 06/02/24 21:31 81 06/02/24 21:30 18 06/02/24 21:30 18 06/02/24 21:26 98 06/02/24 21:26 80 06/02/24 21:21 99 06/02/24 21:21 79 06/02/24 21:18 81 06/02/24 21:18 97/51 L 06/02/24 21:16 99 06/02/24 21:16 82 06/02/24 21:11 99 06/02/24 21:11 85 06/02/24 21:06 98 06/02/24 21:06 89 06/02/24 21:03 77 06/02/24 21:03 96/51 L 06/02/24 21:01 98 06/02/24 21:01 82 06/02/24 21:00 18 06/02/24 21:00 18 06/02/24 21:00 18 06/02/24 21:00 36.7 C 18 06/02/24 20:56 97 06/02/24 20:56 74 06/02/24 20:51 98 06/02/24 20:51 82 06/02/24 20:47 90 06/02/24 20:47 113/66 06/02/24 20:46 100 06/02/24 20:46 89 06/02/24 20:41 100 06/02/24 20:41 91 H 06/02/24 20:36 100 06/02/24 20:36 86 06/02/24 20:35 18 06/02/24 20:35 18 06/02/24 20:33 80 06/02/24 20:33 109/64 06/02/24 20:31 100 06/02/24 20:31 74 06/02/24 20:26 100 06/02/24 20:26 88 06/02/24 20:21 100 06/02/24 20:21 81 06/02/24 20:17 75 06/02/24 20:17 114/66 06/02/24 20:16 100 06/02/24 20:16 73 06/02/24 20:11 100 06/02/24 20:11 106 H 06/02/24 20:06 100 06/02/24 20:06 105 H 06/02/24 20:02 86 06/02/24 20:02 119/65 06/02/24 20:01 100 06/02/24 20:01 89 06/02/24 20:00 92 H 06/02/24 20:00 114/67 06/02/24 19:58 88 06/02/24 19:58 107/61 06/02/24 19:56 99 06/02/24 19:56 87 06/02/24 19:56 115/65 06/02/24 19:54 88 06/02/24 19:54 113/67 06/02/24 19:51 100 06/02/24 19:51 87 06/02/24 19:50 95 H 06/02/24 19:50 121/80 06/02/24 19:48 78 06/02/24 19:48 118/76 06/02/24 19:46 98 06/02/24 19:46 78 06/02/24 19:41 95 06/02/24 19:41 118 H 06/02/24 19:40 106 H 06/02/24 19:40 111/76 06/02/24 19:36 98 06/02/24 19:36 82 06/02/24 19:12 18 06/02/24 19:12 36.7 C 18 06/02/24 19:12 99 H 06/02/24 19:12 122/87 06/02/24 19:08 36.7 C 18 06/02/24 19:08 Room Air 06/02/24 17:15 18 06/02/24 17:15 18 06/02/24 17:14 97 06/02/24 17:14 99 H 06/02/24 17:09 97 06/02/24 17:09 100 H 06/02/24 17:04 95 06/02/24 17:04 79 06/02/24 16:59 95 06/02/24 16:59 73 06/02/24 16:54 97 06/02/24 16:54 89 06/02/24 16:49 96 06/02/24 16:49 74 06/02/24 16:45 18 06/02/24 16:45 18 06/02/24 16:44 94 06/02/24 16:44 89 06/02/24 16:39 95 06/02/24 16:39 80 06/02/24 16:34 96 06/02/24 16:34 76 06/02/24 16:29 94 06/02/24 16:29 81 06/02/24 16:24 95 06/02/24 16:24 85 06/02/24 16:19 97 06/02/24 16:19 102 H 06/02/24 16:15 18 06/02/24 16:15 18 06/02/24 16:14 92 06/02/24 16:14 79 06/02/24 16:09 96 06/02/24 16:09 81 06/02/24 16:04 98 06/02/24 16:04 111 H 06/02/24 15:59 97 06/02/24 15:59 83 06/02/24 15:54 96 06/02/24 15:54 84 06/02/24 15:49 97 06/02/24 15:49 89 06/02/24 15:44 96 06/02/24 15:44 75 06/02/24 15:39 95 06/02/24 15:39 83 06/02/24 15:34 96 06/02/24 15:34 94 H 06/02/24 15:29 99 06/02/24 15:29 110 H 06/02/24 15:29 119/61 06/02/24 15:18 96 06/02/24 15:18 104 H 06/02/24 15:15 20 06/02/24 15:15 20 06/02/24 15:13 95 06/02/24 15:13 97 H 06/02/24 15:08 95 06/02/24 15:08 100 H 06/02/24 15:03 95 06/02/24 15:03 96 H 06/02/24 14:58 95 06/02/24 14:58 97 H 06/02/24 14:53 95 06/02/24 14:53 93 H 06/02/24 14:48 95 06/02/24 14:48 92 H 06/02/24 14:45 18 06/02/24 14:45 18 06/02/24 14:43 94 06/02/24 14:43 95 H 06/02/24 14:38 96 06/02/24 14:38 93 H 06/02/24 14:33 94 06/02/24 14:33 96 H 06/02/24 14:28 95 06/02/24 14:28 86 06/02/24 14:23 95 06/02/24 14:23 89 06/02/24 14:18 95 06/02/24 14:18 86 06/02/24 14:15 18 06/02/24 14:15 18 06/02/24 14:13 96 06/02/24 14:13 107 H 06/02/24 14:08 95 06/02/24 14:08 83
[2024-06-03] MEDS: fentANYL 2 MCG/ML BUPIVacaine 0.125%-NSS 100ML BAG EPI PRN (02:35)
--- NOTE | 2024-06-03 02:50 | Obstetrical Progress Note ---
Date of Service June 03, 2024 Assessment & Plan Admission and Anticipated Discharge Date Admission Date: June 02, 2024 Subjective FHR was reassuring after last exam, then started to have late decelerations, after most of the contractions VE: unchanged, still blood show present Discussed the findings, categ II strip, remote from delivery, recommended Primary Csection Patient understands C section is a major surgery, with risks including but not limited to bleeding , infection, injury to surrounding organs like bowels, bladder, ureters, adhesions, scarring, wound infection, blood cloths in legs/ brad ngs, longer recovery. All questions were answered. She signed an informed consent. Results & Data Vital Signs (Past 12 Hours) Vital Signs Temp Pulse Resp BP Pulse Ox O2 Del Method 06/03/24 02:46 85 98 06/03/24 02:41 94 H 97 06/03/24 02:36 89 99 06/03/24 02:32 89 100/56 L 06/03/24 02:31 87 97 06/03/24 02:26 90 96 06/03/24 02:21 101 H 96 06/03/24 02:17 95 H 117/67 06/03/24 02:16 99 H 97 06/03/24 02:11 93 H 98 06/03/24 02:06 98 H 97 06/03/24 02:04 92 H 118/61 06/03/24 02:01 89 97 06/03/24 02:00 18 06/03/24 02:00 18 06/03/24 01:56 104 H 96 06/03/24 01:51 91 H 97 06/03/24 01:48 86 118/65 06/03/24 01:46 97 H 97 06/03/24 01:41 107 H 96 06/03/24 01:36 90 97 06/03/24 01:33 101 H 119/66 06/03/24 01:31 103 H 96 06/03/24 01:30 18 06/03/24 01:30 18 06/03/24 01:26 103 H 97 06/03/24 01:21 104 H 96 06/03/24 01:18 82 101/53 L 06/03/24 01:16 95 H 96 06/03/24 01:11 101 H 95 06/03/24 01:06 91 H 95 06/03/24 01:04 90 103/57 L 06/03/24 01:01 97 H 96 06/03/24 01:00 16 06/03/24 01:00 36.8 C 16 06/03/24 00:56 89 95 06/03/24 00:51 81 97 06/03/24 00:49 85 102/55 L 06/03/24 00:46 87 96 06/03/24 00:41 84 96 06/03/24 00:36 97 H 97 06/03/24 00:34 94 H 92/50 L 06/03/24 00:31 105 H 97 06/03/24 00:30 18 06/03/24 00:30 18 06/03/24 00:26 90 96 06/03/24 00:21 91 H 97 06/03/24 00:17 87 107/62 06/03/24 00:16 96 H 96 06/03/24 00:11 94 H 96 06/03/24 00:06 89 96 06/03/24 00:04 88 109/66 06/03/24 00:01 99 H 97 06/03/24 00:00 16 06/03/24 00:00 16 06/02/24 23:56 96 06/02/24 23:56 89 06/02/24 23:51 96 06/02/24 23:51 93 H 06/02/24 23:49 93 H 06/02/24 23:49 111/63 06/02/24 23:46 97 06/02/24 23:46 92 H 06/02/24 23:41 96 06/02/24 23:41 91 H 06/02/24 23:36 96 06/02/24 23:36 89 06/02/24 23:32 86 06/02/24 23:32 109/64 06/02/24 23:31 96 06/02/24 23:31 103 H 06/02/24 23:30 18 06/02/24 23:30 18 06/02/24 23:26 97 06/02/24 23:26 100 H 06/02/24 23:21 97 06/02/24 23:21 93 H 06/02/24 23:18 92 H 06/02/24 23:18 115/65 06/02/24 23:16 97 06/02/24 23:16 95 H 06/02/24 23:11 97 06/02/24 23:11 96 H 06/02/24 23:06 96 06/02/24 23:06 85 06/02/24 23:03 103 H 06/02/24 23:03 132/95 06/02/24 23:01 98 06/02/24 23:01 117 H 06/02/24 23:00 18 06/02/24 23:00 36.8 C 18 06/02/24 22:56 98 06/02/24 22:56 88 06/02/24 22:51 97 06/02/24 22:51 94 H 06/02/24 22:47 96 H 06/02/24 22:47 95/54 L 06/02/24 22:46 96 06/02/24 22:46 100 H 06/02/24 22:41 97 06/02/24 22:41 87 06/02/24 22:36 96 06/02/24 22:36 106 H 06/02/24 22:33 87 06/02/24 22:33 92/51 L 06/02/24 22:31 97 06/02/24 22:31 85 06/02/24 22:30 16 06/02/24 22:30 16 06/02/24 22:26 96 06/02/24 22:26 90 06/02/24 22:21 95 06/02/24 22:21 98 H 06/02/24 22:18 81 06/02/24 22:18 91/55 L 06/02/24 22:16 95 06/02/24 22:16 97 H 06/02/24 22:11 96 06/02/24 22:11 92 H 06/02/24 22:06 96 06/02/24 22:06 92 H 06/02/24 22:02 85 06/02/24 22:02 90/55 L 06/02/24 22:01 96 06/02/24 22:01 88 06/02/24 22:00 18 06/02/24 22:00 18 06/02/24 21:56 96 06/02/24 21:56 89 06/02/24 21:51 96 06/02/24 21:51 84 06/02/24 21:47 90 06/02/24 21:47 91/50 L 06/02/24 21:46 97 06/02/24 21:46 89 06/02/24 21:41 97 06/02/24 21:41 89 06/02/24 21:36 98 06/02/24 21:36 86 06/02/24 21:32 81 06/02/24 21:32 97/55 L 06/02/24 21:31 98 06/02/24 21:31 81 06/02/24 21:30 18 06/02/24 21:30 18 06/02/24 21:26 98 06/02/24 21:26 80 06/02/24 21:21 99 06/02/24 21:21 79 06/02/24 21:18 81 06/02/24 21:18 97/51 L 06/02/24 21:16 99 06/02/24 21:16 82 06/02/24 21:11 99 06/02/24 21:11 85 06/02/24 21:06 98 06/02/24 21:06 89 06/02/24 21:03 77 06/02/24 21:03 96/51 L 06/02/24 21:01 98 06/02/24 21:01 82 06/02/24 21:00 18 06/02/24 21:00 18 06/02/24 21:00 18 06/02/24 21:00 36.7 C 18 06/02/24 20:56 97 06/02/24 20:56 74 06/02/24 20:51 98 06/02/24 20:51 82 06/02/24 20:47 90 06/02/24 20:47 113/66 06/02/24 20:46 100 06/02/24 20:46 89 06/02/24 20:41 100 06/02/24 20:41 91 H 06/02/24 20:36 100 06/02/24 20:36 86 06/02/24 20:35 18 06/02/24 20:35 18 06/02/24 20:33 80 06/02/24 20:33 109/64 06/02/24 20:31 100 06/02/24 20:31 74 06/02/24 20:26 100 06/02/24 20:26 88 06/02/24 20:21 100 06/02/24 20:21 81 06/02/24 20:17 75 06/02/24 20:17 114/66 06/02/24 20:16 100 06/02/24 20:16 73 06/02/24 20:11 100 06/02/24 20:11 106 H 06/02/24 20:06 100 06/02/24 20:06 105 H 06/02/24 20:02 86 06/02/24 20:02 119/65 06/02/24 20:01 100 06/02/24 20:01 89 06/02/24 20:00 92 H 06/02/24 20:00 114/67 06/02/24 19:58 88 06/02/24 19:58 107/61 06/02/24 19:56 99 06/02/24 19:56 87 06/02/24 19:56 115/65 06/02/24 19:54 88 06/02/24 19:54 113/67 06/02/24 19:51 100 06/02/24 19:51 87 06/02/24 19:50 95 H 06/02/24 19:50 121/80 06/02/24 19:48 78 06/02/24 19:48 118/76 06/02/24 19:46 98 06/02/24 19:46 78 06/02/24 19:41 95 06/02/24 19:41 118 H 06/02/24 19:40 106 H 06/02/24 19:40 111/76 06/02/24 19:36 98 06/02/24 19:36 82 06/02/24 19:12 18 06/02/24 19:12 36.7 C 18 06/02/24 19:12 99 H 06/02/24 19:12 122/87 06/02/24 19:08 36.7 C 18 06/02/24 19:08 Room Air 06/02/24 17:15 18 06/02/24 17:15 18 06/02/24 17:14 97 06/02/24 17:14 99 H 06/02/24 17:09 97 06/02/24 17:09 100 H 06/02/24 17:04 95 06/02/24 17:04 79 06/02/24 16:59 95 06/02/24 16:59 73 06/02/24 16:54 97 06/02/24 16:54 89 06/02/24 16:49 96 06/02/24 16:49 74 06/02/24 16:45 18 06/02/24 16:45 18 06/02/24 16:44 94 06/02/24 16:44 89 06/02/24 16:39 95 06/02/24 16:39 80 06/02/24 16:34 96 06/02/24 16:34 76 06/02/24 16:29 94 06/02/24 16:29 81 06/02/24 16:24 95 06/02/24 16:24 85 06/02/24 16:19 97 06/02/24 16:19 102 H 06/02/24 16:15 18 06/02/24 16:15 18 06/02/24 16:14 92 06/02/24 16:14 79 06/02/24 16:09 96 06/02/24 16:09 81 06/02/24 16:04 98 06/02/24 16:04 111 H 06/02/24 15:59 97 06/02/24 15:59 83 06/02/24 15:54 96 06/02/24 15:54 84 06/02/24 15:49 97 06/02/24 15:49 89 06/02/24 15:44 96 06/02/24 15:44 75 06/02/24 15:39 95 06/02/24 15:39 83 06/02/24 15:34 96 06/02/24 15:34 94 H 06/02/24 15:29 99 06/02/24 15:29 110 H 06/02/24 15:29 119/61 06/02/24 15:18 96 06/02/24 15:18 104 H 06/02/24 15:15 20 06/02/24 15:15 20 06/02/24 15:13 95 06/02/24 15:13 97 H 06/02/24 15:08 95 06/02/24 15:08 100 H 06/02/24 15:03 95 06/02/24 15:03 96 H 06/02/24 14:58 95 06/02/24 14:58 97 H 06/02/24 14:53 95 06/02/24 14:53 93 H
[2024-06-03] MEDS ORDERED: PHENYLEPHRINE 100MCG/ML 5ML SYR ONE (02:56)
[2024-06-03] MEDS ORDERED: ONDANSETRON INJ 2 MG/ML 2 ML VIAL ONE (02:56)
[2024-06-03] MEDS ORDERED: DEXAMETHASONE SOD INJ 4 MG/ML VIAL ONE (02:56)
[2024-06-03] MEDS ORDERED: LIDOCAINE 2%/EPINEPHRINE 1:200,000 20 ML PF ONE (02:56)
[2024-06-03] MEDS ORDERED: MoRPHine SULFATE PF 1 MG/ML 10 ML AMP/VIAL ONE (02:57)
--- NOTE | 2024-06-03 02:57 | Communication Note ---
Date of Service: June 03, 2024 per surgeon, proceeding with c section for late decels and failure to progress. epidural in and functioning properly. will plan to use epidural for anesthesia. [id number].
[2024-06-03] MEDS: ACETAMINOPHEN 500 MG TAB PO ONE (03:08)
[2024-06-03] MEDS: CITRIC ACID/SODIUM CITRATE 15 ML UDC PO ONE (03:08)
[2024-06-03] MEDS: ceFAZolin 2000MG 2,000 MG/15 ML SYR IV ONE ×2 (03:25→10:53)
[2024-06-03] MEDS: AZITHROMYCIN 500 MG/255 ML BAG IV ONE (03:37)
[2024-06-03] MEDS ORDERED: ePHEDrine sulfate 50 MG/5 ML SYR ONE (04:09)
[2024-06-03] MEDS ORDERED: CALCIUM CARBONATE 500 MG CHEWABLE TAB PO PRN (04:34)
[2024-06-03] MEDS ORDERED: PROMETHAZINE 12.5 MG/50.5 ML BAG IV PRN (04:34)
[2024-06-03] MEDS ORDERED: SENNA 8.6 MG TAB PO PRN (04:34)
[2024-06-03] MEDS ORDERED: MAGNESIUM HYDROXIDE SUSP 30 ML UDC PO PRN (04:34)
[2024-06-03] MEDS ORDERED: BENZOCAINE 20% SPRY 85 APPLN/85 GM CAN EXT PRN (04:34)
[2024-06-03] MEDS ORDERED: HYDROCORTISONE ACETATE 25 MG SUPP PR PRN (04:34)
[2024-06-03] MEDS ORDERED: METOCLOPRAMIDE HCL 20 MG in SODIUM CHLORIDE 0.9% 50 ML IV PRN (04:44)
[2024-06-03] MEDS ORDERED: NALOXONE HCL 1 MG in SODIUM CHLORIDE 0.9% 1,000 ML IV PRN (04:44)
[2024-06-03] MEDS ORDERED: PROMETHAZINE 6.25 MG/50.25 ML BAG IV PRN (04:44)
[2024-06-03] MEDS ORDERED: ePHEDrine sulfate 50 MG/ML AMP IV PRN (04:44)
[2024-06-03] MEDS ORDERED: ONDANSETRON INJ 2 MG/ML 2 ML VIAL IV PRN ×2 (04:44→22:45)
[2024-06-03] MEDS ORDERED: oxyCODONE HCL IR 5 MG TAB (IMMEDIATE RELEASE) PO PRN ×2 (04:44→22:45)
[2024-06-03] MEDS ORDERED: HYDROmorphone INJ 0.5 MG/0.5 ML SYR IV PRN ×2 (04:44→22:45)
[2024-06-03] MEDS ORDERED: NALBUPHINE HCL INJ 10 MG/ML AMP IV PRN (04:44)
[2024-06-03] MEDS ORDERED: diphenhydrAMINE 50 MG/ML VIAL IV PRN ×2 (04:44→22:45)
[2024-06-03] MEDS ORDERED: NALOXONE HCL 0.4 MG/1 ML VIAL/CARP IV PRN (04:44)
--- NOTE | 2024-06-03 04:44 | Anesthesia Procedure Note ---
Date of Service June 03, 2024 Anesthesia Post Epidural Note Vital Signs Vital Signs: Temp Pulse Resp BP Pulse Ox O2 Del Method 36.8 C 88 18 121/59 L 99 Room Air 06/03/24 03:15 06/03/24 04:39 06/03/24 02:00 06/03/24 04:39 06/03/24 04:39 06/02/24 19:08 Notes Mental Status: alert / awake / arousable and participated in evaluation Nausea / Vomiting: adequately controlled Pain: adequately controlled Airway Patency, RR, SpO2: stable & adequate BP & HR: stable & adequate Hydration State: stable & adequate Neuraxial Anesthesia: was administered and sensory block is resolving Anesthetic Complications: no major complications apparent Epidural: Removed without complications and With tip intact
--- NOTE | 2024-06-03 04:44 | Anesthesiology Progress Note ---
Date of Service June 03, 2024 Anesthesia Post Procedure Vital Signs Vital Signs: Temp Pulse Resp BP Pulse Ox O2 Del Method 06/03/24 04:39 88 121/59 L 99 06/03/24 03:31 108 H 98 06/03/24 03:26 94 H 98 06/03/24 03:21 92 H 98 06/03/24 03:18 107 H 128/63 06/03/24 03:16 91 H 98 06/03/24 03:15 36.8 C 06/03/24 03:11 89 98 06/03/24 03:06 85 98 06/03/24 03:04 93 H 126/66 06/03/24 03:03 87 121/66 06/03/24 03:01 86 98 06/03/24 02:56 96 H 97 06/03/24 02:51 96 H 98 06/03/24 02:50 89 119/60 06/03/24 02:46 85 98 06/03/24 02:41 94 H 97 06/03/24 02:36 89 99 06/03/24 02:32 89 100/56 L 06/03/24 02:31 87 97 06/03/24 02:26 90 96 06/03/24 02:21 101 H 96 06/03/24 02:17 95 H 117/67 06/03/24 02:16 99 H 97 06/03/24 02:11 93 H 98 06/03/24 02:06 98 H 97 06/03/24 02:04 92 H 118/61 06/03/24 02:01 89 97 06/03/24 02:00 18 06/03/24 02:00 18 06/03/24 01:56 104 H 96 06/03/24 01:51 91 H 97 06/03/24 01:48 86 118/65 06/03/24 01:46 97 H 97 06/03/24 01:41 107 H 96 06/03/24 01:36 90 97 06/03/24 01:33 101 H 119/66 06/03/24 01:31 103 H 96 06/03/24 01:30 18 06/03/24 01:30 18 06/03/24 01:26 103 H 97 06/03/24 01:21 104 H 96 06/03/24 01:18 82 101/53 L 06/03/24 01:16 95 H 96 06/03/24 01:11 101 H 95 06/03/24 01:06 91 H 95 06/03/24 01:04 90 103/57 L 06/03/24 01:01 97 H 96 06/03/24 01:00 16 06/03/24 01:00 36.8 C 16 06/03/24 00:56 89 95 06/03/24 00:51 81 97 06/03/24 00:49 85 102/55 L 06/03/24 00:46 87 96 06/03/24 00:41 84 96 06/03/24 00:36 97 H 97 06/03/24 00:34 94 H 92/50 L 06/03/24 00:31 105 H 97 06/03/24 00:30 18 06/03/24 00:30 18 06/03/24 00:26 90 96 06/03/24 00:21 91 H 97 06/03/24 00:17 87 107/62 06/03/24 00:16 96 H 96 06/03/24 00:11 94 H 96 06/03/24 00:06 89 96 06/03/24 00:04 88 109/66 06/03/24 00:01 99 H 97 06/03/24 00:00 16 06/03/24 00:00 16 06/02/24 23:56 96 06/02/24 23:56 89 06/02/24 23:51 96 06/02/24 23:51 93 H 06/02/24 23:49 93 H 06/02/24 23:49 111/63 06/02/24 23:46 97 06/02/24 23:46 92 H 06/02/24 23:41 96 06/02/24 23:41 91 H 06/02/24 23:36 96 06/02/24 23:36 89 06/02/24 23:32 86 06/02/24 23:32 109/64 06/02/24 23:31 96 06/02/24 23:31 103 H 06/02/24 23:30 18 06/02/24 23:30 18 06/02/24 23:26 97 06/02/24 23:26 100 H 06/02/24 23:21 97 06/02/24 23:21 93 H 06/02/24 23:18 92 H 06/02/24 23:18 115/65 06/02/24 23:16 97 06/02/24 23:16 95 H 06/02/24 23:11 97 06/02/24 23:11 96 H 06/02/24 23:06 96 06/02/24 23:06 85 06/02/24 23:03 103 H 06/02/24 23:03 132/95 06/02/24 23:01 98 06/02/24 23:01 117 H 06/02/24 23:00 18 06/02/24 23:00 36.8 C 18 06/02/24 22:56 98 06/02/24 22:56 88 06/02/24 22:51 97 06/02/24 22:51 94 H 06/02/24 22:47 96 H 06/02/24 22:47 95/54 L 06/02/24 22:46 96 06/02/24 22:46 100 H 06/02/24 22:41 97 06/02/24 22:41 87 06/02/24 22:36 96 06/02/24 22:36 106 H 06/02/24 22:33 87 06/02/24 22:33 92/51 L 06/02/24 22:31 97 06/02/24 22:31 85 06/02/24 22:30 16 06/02/24 22:30 16 06/02/24 22:26 96 06/02/24 22:26 90 06/02/24 22:21 95 06/02/24 22:21 98 H 06/02/24 22:18 81 06/02/24 22:18 91/55 L 06/02/24 22:16 95 06/02/24 22:16 97 H 06/02/24 22:11 96 06/02/24 22:11 92 H 06/02/24 22:06 96 06/02/24 22:06 92 H 06/02/24 22:02 85 06/02/24 22:02 90/55 L 06/02/24 22:01 96 06/02/24 22:01 88 06/02/24 22:00 18 06/02/24 22:00 18 06/02/24 21:56 96 06/02/24 21:56 89 06/02/24 21:51 96 06/02/24 21:51 84 06/02/24 21:47 90 06/02/24 21:47 91/50 L 06/02/24 21:46 97 06/02/24 21:46 89 06/02/24 21:41 97 06/02/24 21:41 89 06/02/24 21:36 98 06/02/24 21:36 86 06/02/24 21:32 81 06/02/24 21:32 97/55 L 06/02/24 21:31 98 06/02/24 21:31 81 06/02/24 21:30 18 06/02/24 21:30 18 06/02/24 21:26 98 06/02/24 21:26 80 06/02/24 21:21 99 06/02/24 21:21 79 06/02/24 21:18 81 06/02/24 21:18 97/51 L 06/02/24 21:16 99 06/02/24 21:16 82 06/02/24 21:11 99 06/02/24 21:11 85 06/02/24 21:06 98 06/02/24 21:06 89 06/02/24 21:03 77 06/02/24 21:03 96/51 L 06/02/24 21:01 98 06/02/24 21:01 82 06/02/24 21:00 18 06/02/24 21:00 18 06/02/24 21:00 18 06/02/24 21:00 36.7 C 18 06/02/24 20:56 97 06/02/24 20:56 74 06/02/24 20:51 98 06/02/24 20:51 82 06/02/24 20:47 90 06/02/24 20:47 113/66 06/02/24 20:46 100 06/02/24 20:46 89 06/02/24 20:41 100 06/02/24 20:41 91 H 06/02/24 20:36 100 06/02/24 20:36 86 06/02/24 20:35 18 06/02/24 20:35 18 06/02/24 20:33 80 06/02/24 20:33 109/64 06/02/24 20:31 100 06/02/24 20:31 74 06/02/24 20:26 100 06/02/24 20:26 88 06/02/24 20:21 100 06/02/24 20:21 81 06/02/24 20:17 75 06/02/24 20:17 114/66 06/02/24 20:16 100 06/02/24 20:16 73 06/02/24 20:11 100 06/02/24 20:11 106 H 06/02/24 20:06 100 06/02/24 20:06 105 H 06/02/24 20:02 86 06/02/24 20:02 119/65 06/02/24 20:01 100 06/02/24 20:01 89 06/02/24 20:00 92 H 06/02/24 20:00 114/67 06/02/24 19:58 88 06/02/24 19:58 107/61 06/02/24 19:56 99 06/02/24 19:56 87 06/02/24 19:56 115/65 06/02/24 19:54 88 06/02/24 19:54 113/67 06/02/24 19:51 100 06/02/24 19:51 87 06/02/24 19:50 95 H 06/02/24 19:50 121/80 06/02/24 19:48 78 06/02/24 19:48 118/76 06/02/24 19:46 98 06/02/24 19:46 78 06/02/24 19:41 95 06/02/24 19:41 118 H 06/02/24 19:40 106 H 06/02/24 19:40 111/76 06/02/24 19:36 98 06/02/24 19:36 82 06/02/24 19:12 18 06/02/24 19:12 36.7 C 18 06/02/24 19:12 99 H 06/02/24 19:12 122/87 06/02/24 19:08 36.7 C 18 06/02/24 19:08 Room Air 06/02/24 17:15 18 06/02/24 17:15 18 06/02/24 17:14 97 06/02/24 17:14 99 H 06/02/24 17:09 97 06/02/24 17:09 100 H 06/02/24 17:04 95 06/02/24 17:04 79 06/02/24 16:59 95 06/02/24 16:59 73 06/02/24 16:54 97 06/02/24 16:54 89 06/02/24 16:49 96 06/02/24 16:49 74 06/02/24 16:45 18 06/02/24 16:45 18 06/02/24 16:44 94 06/02/24 16:44 89 06/02/24 16:39 95 06/02/24 16:39 80 06/02/24 16:34 96 06/02/24 16:34 76 06/02/24 16:29 94 06/02/24 16:29 81 06/02/24 16:24 95 06/02/24 16:24 85 06/02/24 16:19 97 06/02/24 16:19 102 H 06/02/24 16:15 18 06/02/24 16:15 18 06/02/24 16:14 92 06/02/24 16:14 79 06/02/24 16:09 96 06/02/24 16:09 81 06/02/24 16:04 98 06/02/24 16:04 111 H 06/02/24 15:59 97 06/02/24 15:59 83 06/02/24 15:54 96 06/02/24 15:54 84 06/02/24 15:49 97 06/02/24 15:49 89 06/02/24 15:44 96 06/02/24 15:44 75 06/02/24 15:39 95 06/02/24 15:39 83 06/02/24 15:34 96 06/02/24 15:34 94 H 06/02/24 15:29 99 06/02/24 15:29 110 H 06/02/24 15:29 119/61 06/02/24 15:18 96 06/02/24 15:18 104 H 06/02/24 15:15 20 06/02/24 15:15 20 06/02/24 15:13 95 06/02/24 15:13 97 H 06/02/24 15:08 95 06/02/24 15:08 100 H 06/02/24 15:03 95 06/02/24 15:03 96 H 06/02/24 14:58 95 06/02/24 14:58 97 H 06/02/24 14:53 95 06/02/24 14:53 93 H 06/02/24 14:48 95 06/02/24 14:48 92 H 06/02/24 14:45 18 06/02/24 14:45 18 06/02/24 14:43 94 06/02/24 14:43 95 H 06/02/24 14:38 96 06/02/24 14:38 93 H 06/02/24 14:33 94 06/02/24 14:33 96 H 06/02/24 14:28 95 06/02/24 14:28 86 06/02/24 14:23 95 06/02/24 14:23 89 06/02/24 14:18 95 06/02/24 14:18 86 06/02/24 14:15 18 06/02/24 14:15 18 06/02/24 14:13 96 06/02/24 14:13 107 H 06/02/24 14:08 95 06/02/24 14:08 83 06/02/24 14:03 95 06/02/24 14:03 85 06/02/24 13:58 96 06/02/24 13:58 102 H 06/02/24 13:53 94 06/02/24 13:53 85 06/02/24 13:48 97 06/02/24 13:48 92 H 06/02/24 13:44 82 06/02/24 13:44 119/66 06/02/24 13:43 97 06/02/24 13:43 88 06/02/24 11:30 36.6 C 06/02/24 11:12 86 06/02/24 11:12 114/60 06/02/24 09:48 36.7 C 20 06/02/24 09:39 90 118/71 Transfer of Care Handoff Completed per policy Notes Mental Status: alert / awake / arousable Patient Amnestic to Procedure: Yes Nausea / Vomiting: adequately controlled Pain: adequately controlled Airway Patency, RR, SpO2: stable & adequate BP & HR: stable & adequate Hydration State: stable & adequate Neuraxial Anesthesia: was administered and sensory block is resolving Anesthetic Complications: no major complications apparent and Pt Satisfied with anesthetic care
[2024-06-03] MEDS ORDERED: NO NARCOTICS OR SEDATIVES SCH (04:45)
[2024-06-03] MEDS ORDERED: DC INTRASPINAL MORPHINE SCH (04:45)
--- NOTE | 2024-06-03 04:48 | Operative Report ---
Post Operative Report Pre & Post Diagnosis Operation Date: 06/03/24 03:15 <No data on this case meets the specified criteria> I identified the patient and participated in the time-out.: Yes Procedure Operation Date: 06/03/24 03:15 Actual Procedures p Section in LD for live male at 0354(Not Applicable) - Jess Rae MD Surgeon Jess Rae MD Cost Accounting Clerk KWAME [facility]on Quantitative Blood Loss (QBL) 811 Findings Consistent with Post-Op Diagnosis Fluids Baby was a viable male infant delivered at 3:34 AM in cephalic presentation, occipitoposterior, weight was 3340 g, Apgars 9/9 maternal findings, normal uterus fallopian tubes and ovaries. Specimens Placenta Drains Wright catheter drained 200 mL of urine Anesthesia Type Labor Epidural Complications none Indications patient is a 33-year-old G1, P0 at 38 weeks and 2 days of gestation who was admitted on June 02, 2024 for early labor, prolonged latent phase painful uterine contractions. She received epidural and then changed her cervix to 4 cm dilatation, 80% effaced with a bulging bag when the artificial rupture of membranes was performed by myself clear fluid was obtained. She was started on oxytocin per protocol. Despite hours of oxytocin, position changes cervix has not changed, heart rate started to have late decelerations after most of the contractions. Due to category 2 strip and remote from delivery decision was made to proceed with primary . Patient understood the risks and benefits and signed informed consent. Description of Procedure Patient was taken to operating room where epidural anesthesia was Checked to be adequate by anesthesiologist Dr. Nagel. She was placed in dorsal supine position with a leftward tilt. Vagina was washed with Betadine by myself, cervix was checked again to be the same and had this at the same station per prior exam. She was prepared and draped in usual sterile fashion. Attention was turned to the abdomen where a financial skin incision was made and carried through to the underlying layer of fascia with the Bovie. Fascia was incised in the midline and incision was extended laterally with the help of Morton scissors. Then the upper aspect of the fascial incision was grasped with 2 Miguel clamps elevated the underlying rectus muscles were dissected off sharply with Morton scissors. Same thing was done on the lower incision. Then the muscles were in the midline, peritoneum was identified grasped with 2 pickups and entered sharply with Metzenbaum scissors. Peritoneal incision was extended superior and inferiorly with good visualization of the bladder. The bladder blade was inserted. Vesicouterine peritoneum was identified, grasped with pickups and entered sharply with Metzenbaum scissors, bladder flap was created digitally and bladder blade was reinserted. Uterus was incised in transverse fashion, incision was extended laterally, membranes were ruptured and clear fluid was obtained. Baby's head was delivered without difficulty, followed by shoulders and body with minimal traction without difficulty. Mouth and nose were suctioned there was dried on the field he was vigorously crying and moving. The cord was clamped times and cut at 1 minute delay and then the was handed off to the pediatric team. Then the placenta was delivered manually as intact and complete. Uterus was kept inside due to its size. Cavity was cleaned of all clots and debris manually.. Uterine incision was repaired with 0 Vicryl in a running locked fashion, second umbricating layer was placed with the same suture in running locked fashion. Excellent hemostasis achieved. pelvis was irrigated with warm normal saline and suctioned. Incision was checked To be hemostatic again. parietal peritoneum was reapproximated with 3-0 Vicryl in a running fashion and the muscles were reapproximated in the same suture in a running fashion. All of the fascia and rectus muscles were hemostatic. Rectus fascia was reapproximated with 0 Vicryl starting from both columns meeting in the midline. Subcuticular fat tissue was brought together with 2-0 Vicryl in a running fashion, skin was closed with 4-0 Monocryl in a subcuticular cuticular fashion. The mom and baby tolerated procedure well. Sponge needle instrument count was correct x3. she was given 2 g of cefazolin before surgery and 500 mg of azithromycin completed during surgery. No complications happened, I was present during whole procedure. My res habilitation assistant was needed for retraction, hemostasis and aid during delivery of I attest to the content of the Intraoperative Record and any orders documented therein. Any exceptions are noted below.
[2024-06-03] MEDS: OXYTOCIN 20 UNITS/LR 1,002 ML IV SCH (04:57)
[2024-06-03] MEDS: KETOROLAC 30 MG/ML VIAL IV SCH (05:00)
[2024-06-03] MEDS: DIPHTHER/TETAN/PERTUS Vaccine (Tdap, Adol/Adult) 0.5mL IM ONE (05:26)
[2024-06-03] MEDS: MEASLES, MUMPS & RUBELLA VIRUS VACCINE (MMR) 0.5ML VIAL SQ ONE (05:27)
--- NOTE | 2024-06-03 06:40 | Obstetrical Progress Note ---
Date of Service June 03, 2024 Assessment & Plan Admission and Anticipated Discharge Date Admission Date: June 02, 2024 Subjective Postop check Patient is seen and examined Feels well, no complaints Pain is under control with meds No CP/ SOB/ Dizziness/ N&V/ VB/ Leg pain Not OOB yet Tolerating clears Vital Signs Height Weight Body Mass Index Blood Pressure Temperature Pulse Rate Respiratory Rate 5 ft 1 in 63.049 kg 26.2 129/67 36.8 C 81 18 06/02/24 19:32 06/02/24 19:32 06/02/24 09:48 06/03/24 06:32 06/03/24 04:40 06/03/24 06:34 06/03/24 06:10 Pulse Oximetry 97 06/03/24 06:34 PE: General: Alert, orientedx3, NAD Abd: soft, NT, ND, BS+, Dressing C/D/I, fundus firm No VB Ext: NT, no edema, SCD's on AP: 33 yo female s/p Primary Csection , pod#0 VSS Afebrile doing well Continue to routine postop care Results & Data Vital Signs (Past 12 Hours) Vital Signs Temp Pulse Resp BP Pulse Ox O2 Del Method 06/03/24 06:34 81 97 06/03/24 06:32 80 129/67 06/03/24 06:29 80 98 06/03/24 06:24 83 98 06/03/24 06:22 80 127/72 06/03/24 06:19 80 99 06/03/24 06:14 83 98 06/03/24 06:12 80 120/68 06/03/24 06:10 18 06/03/24 06:09 78 98 06/03/24 06:04 77 97 06/03/24 06:02 93 H 125/69 06/03/24 05:59 91 H 98 06/03/24 05:54 74 96 06/03/24 05:52 74 118/66 06/03/24 05:49 74 98 06/03/24 05:44 87 97 06/03/24 05:43 86 124/66 06/03/24 05:40 18 06/03/24 05:40 18 06/03/24 05:39 89 96 06/03/24 05:34 80 96 04/05/25 05:33 80 119/72 04/05/25 05:30 18 06/03/24 05:29 90 97 06/03/24 05:24 83 120/75 98 06/03/24 05:20 18 06/03/24 05:19 90 97 06/03/24 05:14 89 96 06/03/24 05:10 18 06/03/24 05:09 75 96 06/03/24 05:04 73 98 06/03/24 05:02 69 121/61 06/03/24 05:00 75 18 96 06/03/24 04:59 80 95 06/03/24 04:54 77 96 06/03/24 04:52 75 123/60 06/03/24 04:50 18 06/03/24 04:49 78 96 06/03/24 04:44 82 97 06/03/24 04:40 36.8 C 18 06/03/24 04:40 36.8 C 06/03/24 04:39 88 121/59 L 99 06/03/24 03:31 108 H 98 06/03/24 03:26 94 H 98 06/03/24 03:21 92 H 98 06/03/24 03:18 107 H 128/63 06/03/24 03:16 91 H 98 06/03/24 03:15 36.8 C 06/03/24 03:11 89 98 06/03/24 03:06 85 98 06/03/24 03:04 93 H 126/66 06/03/24 03:03 87 121/66 06/03/24 03:01 86 98 06/03/24 02:56 96 H 97 06/03/24 02:51 96 H 98 06/03/24 02:50 89 119/60 06/03/24 02:46 85 98 06/03/24 02:41 94 H 97 06/03/24 02:36 89 99 06/03/24 02:32 89 100/56 L 06/03/24 02:31 87 97 06/03/24 02:26 90 96 06/03/24 02:21 101 H 96 06/03/24 02:17 95 H 117/67 06/03/24 02:16 99 H 97 06/03/24 02:11 93 H 98 06/03/24 02:06 98 H 97 06/03/24 02:04 92 H 118/61 06/03/24 02:01 89 97 06/03/24 02:00 18 06/03/24 02:00 18 06/03/24 01:56 104 H 96 06/03/24 01:51 91 H 97 06/03/24 01:48 86 118/65 06/03/24 01:46 97 H 97 06/03/24 01:41 107 H 96 06/03/24 01:36 90 97 06/03/24 01:33 101 H 119/66 06/03/24 01:31 103 H 96 06/03/24 01:30 18 06/03/24 01:30 18 06/03/24 01:26 103 H 97 06/03/24 01:21 104 H 96 06/03/24 01:18 82 101/53 L 06/03/24 01:16 95 H 96 06/03/24 01:11 101 H 95 06/03/24 01:06 91 H 95 06/03/24 01:04 90 103/57 L 06/03/24 01:01 97 H 96 06/03/24 01:00 16 06/03/24 01:00 36.8 C 16 06/03/24 00:56 89 95 06/03/24 00:51 81 97 06/03/24 00:49 85 102/55 L 06/03/24 00:46 87 96 06/03/24 00:41 84 96 06/03/24 00:36 97 H 97 06/03/24 00:34 94 H 92/50 L 06/03/24 00:31 105 H 97 06/03/24 00:30 18 06/03/24 00:30 18 06/03/24 00:26 90 96 06/03/24 00:21 91 H 97 06/03/24 00:17 87 107/62 06/03/24 00:16 96 H 96 06/03/24 00:11 94 H 96 06/03/24 00:06 89 96 06/03/24 00:04 88 109/66 06/03/24 00:01 99 H 97 06/03/24 00:00 16 06/03/24 00:00 16 06/02/24 23:56 96 06/02/24 23:56 89 06/02/24 23:51 96 06/02/24 23:51 93 H 06/02/24 23:49 93 H 06/02/24 23:49 111/63 06/02/24 23:46 97 06/02/24 23:46 92 H 06/02/24 23:41 96 06/02/24 23:41 91 H 06/02/24 23:36 96 06/02/24 23:36 89 06/02/24 23:32 86 06/02/24 23:32 109/64 06/02/24 23:31 96 06/02/24 23:31 103 H 06/02/24 23:30 18 06/02/24 23:30 18 06/02/24 23:26 97 06/02/24 23:26 100 H 06/02/24 23:21 97 06/02/24 23:21 93 H 06/02/24 23:18 92 H 06/02/24 23:18 115/65 06/02/24 23:16 97 06/02/24 23:16 95 H 06/02/24 23:11 97 06/02/24 23:11 96 H 06/02/24 23:06 96 06/02/24 23:06 85 06/02/24 23:03 103 H 06/02/24 23:03 132/95 06/02/24 23:01 98 06/02/24 23:01 117 H 06/02/24 23:00 18 06/02/24 23:00 36.8 C 18 06/02/24 22:56 98 06/02/24 22:56 88 06/02/24 22:51 97 06/02/24 22:51 94 H 06/02/24 22:47 96 H 06/02/24 22:47 95/54 L 06/02/24 22:46 96 06/02/24 22:46 100 H 06/02/24 22:41 97 06/02/24 22:41 87 06/02/24 22:36 96 06/02/24 22:36 106 H 06/02/24 22:33 87 06/02/24 22:33 92/51 L 06/02/24 22:31 97 06/02/24 22:31 85 06/02/24 22:30 16 06/02/24 22:30 16 06/02/24 22:26 96 06/02/24 22:26 90 06/02/24 22:21 95 06/02/24 22:21 98 H 06/02/24 22:18 81 06/02/24 22:18 91/55 L 06/02/24 22:16 95 06/02/24 22:16 97 H 06/02/24 22:11 96 06/02/24 22:11 92 H 06/02/24 22:06 96 06/02/24 22:06 92 H 06/02/24 22:02 85 06/02/24 22:02 90/55 L 06/02/24 22:01 96 06/02/24 22:01 88 06/02/24 22:00 18 06/02/24 22:00 18 06/02/24 21:56 96 06/02/24 21:56 89 06/02/24 21:51 96 06/02/24 21:51 84 06/02/24 21:47 90 06/02/24 21:47 91/50 L 06/02/24 21:46 97 06/02/24 21:46 89 06/02/24 21:41 97 06/02/24 21:41 89 06/02/24 21:36 98 06/02/24 21:36 86 06/02/24 21:32 81 06/02/24 21:32 97/55 L 06/02/24 21:31 98 06/02/24 21:31 81 06/02/24 21:30 18 06/02/24 21:30 18 06/02/24 21:26 98 06/02/24 21:26 80 06/02/24 21:21 99 06/02/24 21:21 79 06/02/24 21:18 81 06/02/24 21:18 97/51 L 06/02/24 21:16 99 06/02/24 21:16 82 06/02/24 21:11 99 06/02/24 21:11 85 06/02/24 21:06 98 06/02/24 21:06 89 06/02/24 21:03 77 06/02/24 21:03 96/51 L 06/02/24 21:01 98 06/02/24 21:01 82 06/02/24 21:00 18 06/02/24 21:00 18 06/02/24 21:00 18 06/02/24 21:00 36.7 C 18 06/02/24 20:56 97 06/02/24 20:56 74 06/02/24 20:51 98 06/02/24 20:51 82 06/02/24 20:47 90 06/02/24 20:47 113/66 06/02/24 20:46 100 06/02/24 20:46 89 06/02/24 20:41 100 06/02/24 20:41 91 H 06/02/24 20:36 100 06/02/24 20:36 86 06/02/24 20:35 18 06/02/24 20:35 18 06/02/24 20:33 80 06/02/24 20:33 109/64 06/02/24 20:31 100 06/02/24 20:31 74 06/02/24 20:26 100 06/02/24 20:26 88 06/02/24 20:21 100 06/02/24 20:21 81 06/02/24 20:17 75 06/02/24 20:17 114/66 06/02/24 20:16 100 06/02/24 20:16 73 06/02/24 20:11 100 06/02/24 20:11 106 H 06/02/24 20:06 100 06/02/24 20:06 105 H 06/02/24 20:02 86 06/02/24 20:02 119/65 06/02/24 20:01 100 06/02/24 20:01 89 06/02/24 20:00 92 H 06/02/24 20:00 114/67 06/02/24 19:58 88 06/02/24 19:58 107/61 06/02/24 19:56 99 06/02/24 19:56 87 06/02/24 19:56 115/65 06/02/24 19:54 88 06/02/24 19:54 113/67 06/02/24 19:51 100 06/02/24 19:51 87 06/02/24 19:50 95 H 06/02/24 19:50 121/80 06/02/24 19:48 78 06/02/24 19:48 118/76 06/02/24 19:46 98 06/02/24 19:46 78 06/02/24 19:41 95 06/02/24 19:41 118 H 06/02/24 19:40 106 H 06/02/24 19:40 111/76 06/02/24 19:36 98 06/02/24 19:36 82 06/02/24 19:12 18 06/02/24 19:12 36.7 C 18 06/02/24 19:12 99 H 06/02/24 19:12 122/87 06/02/24 19:08 36.7 C 18 06/02/24 19:08 Room Air
[2024-06-03] MEDS: LACTATED RINGER'S 1,000 ML IV SCH ×2 (07:38→07:39)
[2024-06-03] MEDS ORDERED: Nursing to Pharmacy Communication SCH (07:45)
[2024-06-03] MEDS: DOCUSATE SODIUM 100 MG CAP PO SCH (09:23)
[2024-06-03] MEDS: PRENATAL VITAMIN 1 TAB PO SCH (09:23)
[2024-06-03] MEDS: FERROUS SULFATE 325 MG TAB PO SCH (09:23)
[2024-06-03] MEDS: SIMETHICONE 80 MG CHEW PO SCH (09:24)
[2024-06-03] MEDS: ACETAMINOPHEN 325 MG TAB PO SCH (10:52)
[2024-06-03] MEDS: NALOXONE HCL 0.08 MG in SYRINGE 1.8 ML IV PRN (17:45)
--- NOTE | 2024-06-03 20:07 | Communication Note ---
Date of Service: June 03, 2024 Followed up with patient following post-dural puncture. Patient did report 3/10 head pain today. She is sitting up in bed and well appearing on exam. She notes neck pain but denies any vision changes, tinnitus, or positional pain. Patient feels head pain likely due to lack of sleep, but given neck pain and known dural puncture, I have concern for PDPH. Discussed with patient to attempt conserative patient including tylenol, NSAIDs, hydration, and caffeine and if no improvement by tomorrow, will rediscuss blood patch. Patient agreeable.
[2024-06-03] MEDS ORDERED: diphenhydrAMINE Capsule 25 MG CAP PO PRN (22:45)
[2024-06-04] MEDS ORDERED: KETOROLAC 30 MG/ML VIAL IV PRN (04:34)
[2024-06-04] MEDS: IBUPROFEN 600 MG TAB PO SCH (05:13)
[2024-06-04 07:28] LABS: Basophils # (auto) 0.03 K/uL (0.00-0.20); Basophils % (auto) 0.2 %; Eosinophils # (auto) 0.04 K/uL (0.00-0.50); Eosinophils % (auto) 0.2 %; Hematocrit (blood only) 28.9 % (37.0-47.0); Hemoglobin 10.1 g/dl (12.0-16.0); Immature Granulocytes # (auto) 0.12 K/uL (0.01-0.20); Immature Granulocytes % (auto) 0.7 %; Lymphocytes # (auto) 1.92 K/uL (1.20-3.40); Lymphocytes % (auto) 10.9 %; Mean Corpuscular Hemoglobin 32.1 pg (25.0-34.0); Mean Corpuscular Hgb Conc 34.9 g/dL (32.0-36.0); Mean Corpuscular Volume 91.7 fL (80.0-100.0); Mean Platelet Volume 10.9 fL (9.4-12.4); Monocytes % (auto) 6.8 %; Neutrophils # (auto) 14.28 K/uL (1.40-6.50); Neutrophils % (auto) 81.2 %; Platelet Count 191 K/uL (130-400); RDW Coefficient of Variation 13.8 % (11.5-14.5); RDW Standard Deviation 46.5 fL (36.4-46.3); Red Blood Count 3.15 M/uL (4.20-5.40); White Blood Count 17.59 K/ul (4.8-10.8)
--- NOTE | 2024-06-04 10:25 | Obstetrical Progress Note ---
Date of Service June 04, 2024 Assessment & Plan Admission and Anticipated Discharge Date Admission Date: June 02, 2024 Subjective abdomen soft and non tender passing gas bandage removed incision is clean and dry vaginal bleeding scant hgb 10.1 patient complains of headache Results & Data Vital Signs (Past 12 Hours) Vital Signs Temp Pulse Resp BP Pulse Ox O2 Del Method 06/04/24 08:00 36.8 C 76 18 101/66 96 Room Air 06/04/24 03:26 36.6 C 75 16 94/55 L 97 Room Air 06/03/24 23:30 18 99 06/03/24 22:54 36.4 C L 65 16 97/61 L 98 Room Air
--- NOTE | 2024-06-04 11:08 | Anesthesia Procedure Note ---
Anesthesia Procedure Note Epidural Blood Patch Procedure Note Date of procedure: 06/04/24 Consent: Risk / Benefits Reviewed With: PT / POA / Parent / Guardian, Accepts Plan, Informed Consent Obtained and All Questions Answered Risks include: Failure of technique, Back pain, Bleeding and Dural puncture Time out completed: Yes Premedication: None Position: Sitting Surgical Prep: Hand hygeine: Alcohol based hand rub Equipment/Supplies: Cap, Mask, Sterile gloves, Sterile drapes and Sterile procedures used Skin prep: Betadine Local medication: 1% Lidocaine (ml) Venous access site: Right antecubital vein (done by candelario) Site: Midline Attempts: 1 Procedure Summary: l3-l4 identified by landmarks. sterile prep/drape. 1% lido infiltrated. touey needle advanced to mera with air at 4cm. vp transportation cleaned the patients right antecubetal and used sterile technique/gloves to with draw 20 cc of blood from the patient. i then injected the blood into the epidural space. pt complained of low back and neck pain during injection. pt was then placed supine for one hour. pt reports that neck is painful but has eased slightly with lying down. instructions reviewed with patient and nurse Post-Procedure: Pt hemodynamically stable, Pt tolerates well and No complications
--- NOTE | 2024-06-04 11:10 | Anesthesiology Consultation ---
Date of Service June 04, 2024 Assessment & Plan ASA ASA2 Proposed Anesthesia Anesthesia Type: Other (epidural blood patch) Risk / Benefits Reviewed With: PT / POA / Parent / Guardian, Accepts Plan and Informed Consent Obtained Additional Comments: pt has ringing in her ears and a positional headache. considering that she had a wet tap on wednesday, this is most likely a pdph. i d/w the patient a blood patch vs conservative therapy and patient wishes to proceed with a blood patch. consent was obtained. History Surgery Operation Date: 06/03/24 03:15 Proposed Procedures p Section in LD - Jess Rae MD Height/Weight Height: 5 ft 1 in Weight: 63.049 kg Allergies Allergy/AdvReac Type Severity Reaction Status Date / Time No Known Allergies Allergy Unverified 06/02/24 09:45 Medications Home Medications Medication Instructions Recorded Confirmed Last Taken vits no.124-ferrous fum 1 tab PO DAILY 06/02/24 06/02/24 06/01/24 27 mg iron-folic acid 800 mcg tablet ( Vitamin) Active Medications Generic Name Dose Route Start Last Admin Trade Name Freq PRN Reason Stop Dose Admin Acetaminophen 650 mg 06/03/24 10:45 06/04/24 09:46 Acetaminophen 325 Mg Tab PO 06/05/24 04:46 650 mg Q6H KRYSTEN Administration Docusate Sodium 100 mg 06/03/24 08:00 06/04/24 07:50 Docusate Sodium 100 Mg Cap PO 07/03/24 07:59 100 mg DAILY@08,21 KRYSTEN Administration Ferrous Sulfate 325 mg 06/03/24 08:00 06/04/24 07:50 Ferrous Sulfate 325 Mg Tab PO 07/03/24 07:59 325 mg DAILY@08 KRYSTEN Administration Oxytocin 30 units in 500 mls @ 6 mls/hr 06/02/24 18:41 06/03/24 02:44 Pitocin 30 Units/Nss IV 06/04/24 18:40 0 units/hr .Q24H PRN 0 mls/hr Labor Induction/Augmentation Titration Protocol 0.36 UNITS/HR Ibuprofen 600 mg 06/04/24 04:45 06/04/24 09:45 Ibuprofen 600 Mg Tab PO 06/04/24 22:46 600 mg Q6H KRYSTEN Administration Prenat Multivit/Pole Shaver Helper/Iron/Folic Ac 1 tab 06/03/24 08:00 06/04/24 07:50 Vitamin 1 Tab PO 07/03/24 07:59 1 tab DAILY@08 KRYSTEN Administration Simethicone 80 mg 06/03/24 08:00 06/04/24 07:50 Simethicone 80 Mg Chew PO 07/03/24 07:59 80 mg DAILY@08,13,17,21 KRYSTEN Administration NPO Date Last Intake of Fluids: 06/03/24 Time Last Intake of Fluids: 19:00 Date Last Intake of Solids: 06/02/24 Time Last Intake of Solids: 17:30 Past Medical History Medical History GERD (gastroesophageal reflux disease) Gestational diabetes Anxiety Asthma Exercise / Class Metabolic Activity II 4-5 Yardwork/Stairs/Walk up hill Past Surgical History Surgical History History of tonsillectomy Past Anesthesia History No Hx of Anesthesia Complications and No Family Hx of Anesthesia Complications History of PONV No Hx of PONV and No Hx of Motion Sickness Social History Smoking Status: Never smoker Hx Alcohol Use: No Hx Substance Use: No Review of Systems denies fever/cough/ colds/ chest pain/ SOB/ TED denies TED Physical Exam Vital Signs Last Vital Signs Temp 36.8 C 06/04/24 08:00 Pulse 76 06/04/24 08:00 Resp 18 06/04/24 08:00 BP 101/66 06/04/24 08:00 Pulse Ox 96 06/04/24 08:00 O2 Del Method Room Air 06/04/24 08:00 ENMT Mouth: no TMJ abnormality and no dentition abnormality Thyromental Distance: > or= 3.5 Finger Breadths Mallampati Class: II Neck neck extension not limited Respiratory normal respiratory effort; no respiratory distress Auscultation: lungs clear to auscultation bilaterally Cardiovascular Rate/Rhythm: regular rate and regular rhythm Neurologic moves all extremities Psychiatric Orientation: alert and oriented x 3 Testing Laboratory Results 06/04/24 07:00 06/02/24 18:51 Blood Type AB Positive 06/02/24 18:54 Blood Type Cancelled 06/02/24 18:54 Antibody Screen Cancelled 06/02/24 18:54 Antibody Screen NEGATIVE 06/02/24 18:54 06/02/24 Unknown Gram Stain - Final Vaginal Genital Culture - Preliminary Moderate normal maggie present, final report to follow.
[2024-06-04 19:06] VITALS: RESP 16
[2024-06-04] MEDS: bisacodyL 5 MG TABEC PO SCH (20:24)
[2024-06-04] MEDS: LACTATED RINGER'S 1,000 ML IV SCH (22:05)
[2024-06-04] MEDS: BUTORPHANOL TARTRATE 1 MG/ML VIAL IV ONE (22:05)
[2024-06-04] MEDS: MoRPHine SULFATE PF 1 MG/ML 10 ML AMP/VIAL EPI ONE (22:05)
[2024-06-05] MEDS ORDERED: bisacodyL 10 MG SUPP PR PRN (04:34)
[2024-06-05] MEDS: IBUPROFEN 600 MG TAB PO PRN (04:36)
[2024-06-05 06:23] LABS: Hematocrit (blood only) 29.9 % (37.0-47.0); Hemoglobin 10.1 g/dl (12.0-16.0)
[2024-06-05 09:07] VITALS: BP 117/77; PULSE 72; TEMP 97.7; O2SAT 99
[2024-06-05] MEDS ORDERED: ACETAMINOPHEN 325 MG TAB PO PRN (10:34)
--- NOTE | 2024-06-05 10:36 | Obstetrical Progress Note ---
Date of Service June 05, 2024 Subjective Ambulation: ambulating normally Voiding: no voiding problems Passing Gas:: Yes Diet Tolerance:: regular diet Lochia:: Small Feeding Type:: breast feeding Current Pain Level(1-10): 0 doing well Physical Exam Constitutional WD/WN, vitals as above Gastrointestinal (Abdomen) Inspection/Auscultation: abdomen normal to inspection incision c/d/i abdomen soft and non-tender Musculoskeletal Extremities: extremities normal to inspection Skin no rashes, warm and dry Neurologic patellar DTR's 2+ bilat, sensation intact Psychiatric A+Ox3, euthymic affect Results & Data Vital Signs (Past 12 Hours) Vital Signs Temp Pulse Resp BP Pulse Ox O2 Del Method 06/05/24 07:40 36.5 C 72 16 117/77 99 Room Air Laboratory Results Laboratory Results - last 72 hr 06/02/24 06/02/24 06/02/24 10:07 18:51 18:54 WBC 14.98 H RBC 3.92 L Hgb 12.3 Hct 36.1 L MCV 92.1 MCH 31.4 MCHC 34.1 RDW Std Deviation 45.1 RDW Coeff of Michelle 13.4 Plt Count 184 MPV 11.1 Immature Gran % (Auto) Neut % (Auto) Lymph % (Auto) [place] % (Auto) Eos % (Auto) Baso % (Auto) Neut # (Auto) Lymph # (Auto) [place] # (Auto) Eos # (Auto) Baso # (Auto) Immature Gran # (Auto) Sodium 136 Potassium 3.8 Chloride 109 H Carbon Dioxide 21 Anion Gap 6 BUN 10 Creatinine 0.64 Est Cr Clr Drug Dosing 105.4 eGFR 118.85 BUN/Creatinine Ratio 15.6 Glucose 103 H Calcium 8.7 Total Bilirubin 0.4 AST 19 ALT 15 Alkaline Phosphatase 156 H Total Protein 5.5 L Albumin 3.3 L Globulin 2.2 L Albumin/Globulin Ratio 1.5 Amniotic Protein POS Treponema pallidum Ab Negative Blood Type AB Positive Antibody Screen 06/02/24 06/02/24 06/04/24 18:54 18:54 07:00 WBC 17.59 H RBC 3.15 L Hgb 10.1 L Hct 28.9 L MCV 91.7 MCH 32.1 MCHC 34.9 RDW Std Deviation 46.5 H RDW Coeff of Michelle 13.8 Plt Count 191 MPV 10.9 Immature Gran % (Auto) 0.7 Neut % (Auto) 81.2 Lymph % (Auto) 10.9 [place] % (Auto) 6.8 Eos % (Auto) 0.2 Baso % (Auto) 0.2 Neut # (Auto) 14.28 H Lymph # (Auto) 1.92 [place] # (Auto) 1.20 H Eos # (Auto) 0.04 Baso # (Auto) 0.03 Immature Gran # (Auto) 0.12 Sodium Potassium Chloride Carbon Dioxide Anion Gap BUN Creatinine Est Cr Clr Drug Dosing eGFR BUN/Creatinine Ratio Glucose Calcium Total Bilirubin AST ALT Alkaline Phosphatase Total Protein Albumin Globulin Albumin/Globulin Ratio Amniotic Protein Treponema pallidum Ab Blood Type Cancelled Antibody Screen NEGATIVE Cancelled 06/05/24 05:58 WBC RBC Hgb 10.1 L Hct 29.9 L MCV MCH MCHC RDW Std Deviation RDW Coeff of Michelle Plt Count MPV Immature Gran % (Auto) Neut % (Auto) Lymph % (Auto) [place] % (Auto) Eos % (Auto) Baso % (Auto) Neut # (Auto) Lymph # (Auto) [place] # (Auto) Eos # (Auto) Baso # (Auto) Immature Gran # (Auto) Sodium Potassium Chloride Carbon Dioxide Anion Gap BUN Creatinine Est Cr Clr Drug Dosing eGFR BUN/Creatinine Ratio Glucose Calcium Total Bilirubin AST ALT Alkaline Phosphatase Total Protein Albumin Globulin Albumin/Globulin Ratio Amniotic Protein Treponema pallidum Ab Blood Type Antibody Screen
== END 2024-06-05 13:25 | disposition home or self-care (01) | DRG 788 ==
LOC: OPB 09:01 → 4S1 09:15 → 4E2 06-03 07:30